=== PATIENT | female | born 1955 | race Caucasian/White ===

== ENCOUNTER → 2018-02-27 13:02 | Outpatient (CLI) | payer OTHER, SELFPAY ==
--- NOTE | 2018-02-27 13:11 | CT_ITS ---
CT lung screening EXAM: CT LUNG LOW DOSE WO CONTRAST COMPARISON: 25 HISTORY: 62 year old female with a smoking history asymptomatic ITS.REASON: FORMER NICOTINE DEPENDENT ORDERING PHYSICIAN: Alvaro Allen MD PATIENT AGE: 62 years TECHNIQUE: The exam was performed on a GE Light Speed [address] scanner using 2.90 mGy CTDI. A low dose helical CT CHEST was performed on a multi-detector scanner. All CT scans at the facility use one or more dose reduction, viz: automated exposure control; ma/kV adjustment per patient size (including targeted exams where dose is matched to indication; i.e. head); or iterative reconstruction technique. The LDCT was performed in a facility that meets the criteria for the screening program. Data regarding this exam was submitted to ACR which is an approved registry. The order for this exam indicates that it came as a result of a lung cancer screening counseling shard decision-making visit that included all the elements required of such a visit including smoking cessation. The radiologist interpreting this exam meets the [facility] criteria for the LDCT lung cancer screening program. The exam is reported using the Lung-RADS classification scale and reported to the ACR registry. NOTE: This study was performed for the specific purposes of lung cancer screening and is not an alternative to diagnostic chest CT. RADIATION DOSE: CTDI vol(CT dose Index-volume) = 2.90mG DLP (Dose Length Product) = 100.70 mGcm FINDINGS: Calcified granuloma right apex Centrilobular images changes with scattered areas of pulmonary fibrosis OTHER FINDINGS: No other pertinent findings evident IMPRESSION: 1. Lung RADS Category: 2, benign 2. Other findings: Centrilobular emphysematous change with pulmonary fibrosis RECOMMENDATIONS: 12 month LDCT screening
== END ==
PROVIDERS: PCP Nurse Practitioner Family; Visit Provider Internal Medicine
DX: Z87.891 Personal history of nicotine dependence (principal); Z12.2 Encounter for screening for malignant neoplasm of respiratory organs

== ENCOUNTER → 2018-03-19 13:46 | Outpatient (POV) | payer OTHER, SELFPAY | PROVIDERS: PCP Nurse Practitioner Family; Visit Provider Internal Medicine | DX: Z00.00 Encounter for general adult medical examination without abnormal findings (principal) ==

== ENCOUNTER 2022-10-12 15:27 | Emergency (ER) | payer MEDICARE, BC, SELFPAY ==
[2022-10-12] VITALS (9 sets, daily range): BP systolic 142–162; BP diastolic 61–78; PULSE 61–66; RESP 20; TEMP 36.8; O2SAT 96–98; BMI 31.8
[2022-10-12 15:50] LABS: Microscopic, Urine URINE MICROSCOPIC (MICROSCOPIC)
[2022-10-12 15:56] LABS: Appearance,Urine SL CLOUDY (Clear); Blood, Urine 2+ (Negative); Color,Urine YELLOW (Yellow); Glucose,Urine (UA) Negative (Negative); Ketones,Urine TRACE (Negative); Leukocyte Esterase,Urine Negative (Negative); Nitrate,Urine Negative (Negative); Protein,Urine 2+ (Negative); Specific Gravity, Urine >= 1.030 (1.005-1.030)
[2022-10-12 16:06] LABS: Bilirubin,Urine Negative (Negative)
[2022-10-12 16:07] LABS: Squamous Epithelial Cell,Urine Occasional #/hpf (0-5)
--- NOTE | 2022-10-12 16:07 | CT_ITS ---
PROCEDURE INFORMATION: Exam: CT Abdomen And Pelvis Without Contrast Exam date and time: 10/12/2022 4:38 PM Age: 67 years old Clinical indication: Abdominal pain; Flank; Left; Additional info: L flank pain TECHNIQUE: Imaging protocol: Computed tomography of the abdomen and pelvis without contrast. Radiation optimization: All CT scans at this facility use at least one of these dose optimization techniques: automated exposure control; mA and/or kV adjustment per patient size (includes targeted exams where dose is matched to clinical indication); or iterative reconstruction. COMPARISON: LUNGSCREEN CT lung screening 02/27/2018 1:26 PM FINDINGS: Liver: Normal. No mass. Gallbladder and bile ducts: Normal. No calcified stones. No ductal dilation. Pancreas: Normal. No ductal dilation. Spleen: Normal. No splenomegaly. Adrenal glands: Normal. No mass. Kidneys and ureters: 3 x 3 mm stone distal left ureter in or immediately above the UVJ with no significant hydronephrosis. Additional nonobstructive renal calcifications bilaterally. Stomach and bowel: Severe sigmoid diverticulosis. Appendix: No evidence of appendicitis. Intraperitoneal space: Unremarkable. No free air. No significant fluid collection. Vasculature: Unremarkable. No abdominal aortic aneurysm. Lymph nodes: Unremarkable. No enlarged lymph nodes. Urinary bladder: Unremarkable as visualized. Reproductive: Unremarkable as visualized. Bones/joints: Unremarkable. No acute fracture. Soft tissues: Unremarkable. Other findings: No other acute disease seen on nonenhanced study. As Above. IMPRESSION: 1. 3 x 3 mm stone distal left ureter in or immediately above the UVJ with no significant hydronephrosis. 2. No other acute disease seen on nonenhanced study. As Above.
[2022-10-12 16:08] LABS: Bacteria,Urine 1+ /lpf; Mucus,Urine 1+ /lpf
--- NOTE | 2022-10-12 16:09 | HMH.EDGENADL ---
Discharge Plan Disposition Patient Disposition: Home, Self-Care Condition: Good Prescriptions Prescriptions: New oxycodone-acetaminophen [Percocet] 5-325 mg tablet 1 tab PO Q6H PRN (Reason: pain) Qty: 10 0RF ondansetron 4 mg tablet,disintegrating 4 mg PO Q8H PRN (Reason: nausea and vomiting) Qty: 10 0RF tamsulosin [Flomax] 0.4 mg capsule 0.4 mg PO HS Qty: 10 0RF Referrals Follow up/Referrals: Petra Oliva [Primary Care Provider] - See instructions Activity Restrictions/Add. Instructions Additional Instructions/Restrictions: Flomax as prescribed. Percocet as needed for pain. Zofran as needed for nausea. Additional instructions for KIDNEY STONE (URETERAL CALCULUS): See your primary care provider as soon as possible for further evaluation. Drink plenty of fluids. Strain your urine and save any stones you catch. Return immediately if you develop a fever or have uncontrollable vomiting or uncontrollable pain. KIDNEY STONE DIET: Most kidney stones contain calcium oxalate. Although one would assume that you should avoid calcium/dairy to prevent kidney stones, what is actually recommended for kidney stone prevention is a diet that contains high intake of calcium, along with drinking plenty of fluids and reducing sodium intake. Recommendations: Drink a lot of water each day: A minimum would be 8-10 glasses (8 oz each) of fluid per day. Sodium: Try not to get more than 1500 mg a day. Calcium: Dietary calcium prevents absorption of oxalate which helps prevent stones. Make sure you get about 1000 to 1200 mg a day. You can get enough calcium from dairy products without taking supplements. Calcium should be ingested with meals, not in between meals. You need to get your calcium at mealtime to decrease the absorption of oxalate from other foods. Eat dairy with each meal (e.g. milk or cheese or yogurt). Oxalate: Although some experts recommend avoiding oxalate in your diet, there have been no studies that prove this works. Eating more calcium will reduce oxalate absorption, and is probably all that is needed to reduce oxalate in your urine. Oxalate containing foods are generally good for you in all other respects - leafy greens, nuts, etc... So avoiding them unnecessarily might not be the best thing for your health. ALSO: If you retrieve your stone by straining your urine, take it to your physician for stone analysis, which can help tailor your dietary recommendations. For further reading, check out the [facility] web page about the kidney stone diet: [email or web address] Additional instructions for CONTROLLED SUBSTANCES: You have been prescribed a medication that is a controlled substance. Controlled substances include pain medications known as opiates and sedative nerve medications known as benzodiazepines. Tramadol, fioricet, and gabapentin are also controlled substances. Some common opiates include: Codeine (such as Tylenol #3) Hydrocodone (Vicodin, Lortab, Lorcet, [place]) Oxycodone (Percocet, Percodan, Oxycodone, Oxy IR) Some common benzodiazepines include: Diazepam (Valium) Lorazepam (Ativan) Alprazolam (Xanax) Clonazepam (Klonopin) Oxazepam (Serax) All of these controlled substances are highly addictive and frequently abused. Misuse can and frequently does lead to addiction as well as overdose and . Medication should be stored in a locked cabinet or other secure storage unit. Do not store the medication in a motor vehicle. Short term supplies, 3 days or less, are prescribed because of the highly addictive nature of the medication. Any of the controlled substance medication NOT taken should be disposed of properly and NOT SAVED. The recommended method of disposing of unused medications is: Place the medicines in a sealable plastic bag. If the medicine is a solid, crush it or add water to dissolve it. Add
--- NOTE | 2022-10-12 16:36 | PC.NURSE ---
pt to ct
[2022-10-12 16:39] LABS: Basophils # 0.3 K/mm3 (0-0.2); Basophils % 1.5 % (0.1-2.0); Eosinophils # 0.3 K/mm3 (0.0-0.4); Eosinophils % 1.5 % (0.1-12.0); Hematocrit 49.5 % (37.0-47.0); Hemoglobin 15.9 g/dL (12.2-16.2); Lymphocytes # 3.5 K/mm3 (0.7-4.5); Lymphocytes % 20.1 % (10-50); Mean Corpuscular HGB Conc 32.1 g/dL (31.8-35.4); Mean Corpuscular Volume 96.6 fl (81-99); Mean Platelet Volume 8.4 fl (7.4-10.4); Monocytes % 5.8 % (1.7-9.3); Neutrophils # 12.3 K/mm3 (1.8-7.8); Neutrophils % 71.1 % (37.0-80.0); Platelet Count 369 K/mm3 (142-424); Red Blood Count 5.13 M/mm3 (4.20-5.40); Red Cell Distribution Width 13.9 % (11.5-17.5); White Blood Count 17.3 K/mm3 (4.8-10.8)
[2022-10-12 16:40] LABS: MANUAL DIFFERENTIAL MANUAL DIFFERENTIAL (MANUAL DIFF)
--- NOTE | 2022-10-12 16:45 | PC.NURSE ---
verbal order for pain medication given by
[2022-10-12 16:47] LABS: Chloride 105 mmol/L (98-107); Sodium 138 mmol/L (136-145)
[2022-10-12 16:50] LABS: Alanine Aminotransferase 24 U/L (12-78); Albumin/Globulin Ratio 1.4 (1.1-1.8); Alkaline Phosphatase 118 U/L (38-126); Aspartate Amino Transferase 34 U/L (14-36); Bilirubin,Total 0.4 mg/dl (0.2-1.3); Blood Urea Nitrogen 21 mg/dl (7-17); Calcium 8.8 mg/dl (8.4-10.2); Carbon Dioxide 22 mmol/L (22.0-30.0); Creatinine Clearance Estimated 68 mL/min (50-200); Estimated Glomerular Filt Rate 62 ml/min (>60); GFR (African American) 75 ML/MIN (>60); Globulin 2.9 g/dL (1.3-3.2); Glucose 163 mg/dl (74-100); Lipase 35 U/L (23-300); Total Protein,Serum 6.9 g/dl (6.3-8.2)
[2022-10-12 17:08] LABS: Lymphocytes % 21 % (10-50); Monocytes % 4 % (2-9); Neutrophils % 75 % (42-76); Total Cells Counted 100
[2022-10-12 17:09] LABS: Platelet Estimate Normal; RBC Morphology Normal
--- NOTE | 2022-10-12 17:46 | PC.NURSE ---
NATIV[facility] MAR at for update on POC
== END 2022-10-12 18:33 | disposition home or self-care (01) ==
PROVIDERS: Emergency Provider Emergency Medicine; PCP Nurse Practitioner Family
DX: M54.50 Low back pain, unspecified (principal); N20.1 Calculus of ureter; R11.2 Nausea with vomiting, unspecified; D72.829 Elevated white blood cell count, unspecified; Z79.51 Long term (current) use of inhaled steroids; Z79.899 Other long term (current) drug therapy; Z88.5 Allergy status to narcotic agent
CPT/HCPCS: 74176; 80053; 81001; 83690; 85007; 85025; 96374; 96375; 96376; 99285; J2405

== ENCOUNTER 2022-10-25 17:14 | Emergency (ER) | payer MEDICARE, BC, SELFPAY ==
--- NOTE | 2022-10-25 18:39 | EXP.UTC ---
Discharge Plan Disposition Patient Disposition: Home, Self-Care Condition: Good Prescriptions Prescriptions: No Action ondansetron 4 mg tablet,disintegrating 4 mg PO Q8H PRN (Reason: nausea and vomiting) Qty: 10 0RF celecoxib 200 mg capsule 200 mg PO DAILY anastrozole 1 mg tablet 1 mg PO DAILY albuterol sulfate 1.25 mg/3 mL solution for nebulization 1.25 mg continuous nebulization Q4HP PRN (Reason: asthma) omeprazole 40 mg capsule,delayed release(DR/EC) 40 mg PO DAILY lisinopril 10 mg tablet 10 mg PO DAILY fluoxetine 20 mg capsule 20 mg PO DAILY Referrals Follow up/Referrals: Petra Oliva [Primary Care Provider] - See instructions Olman Olson MD [Staff Physician] - See instructions Rocael Grimaldo MD [Referring] - See instructions Clinical Impressions Clinical Impression: Abdominal pain, GERD (gastroesophageal reflux disease) [place] [facility] [place] General Chief complaint: Nausea/Vomiting/Diarrhea Stated complaint: vomiting, NA Time Seen by Provider: 10/25/22 18:39 History of Present Illness Provider Complaint: she states that since this morning she has had abdominal pain. She describes the pain as constant and epigastric. She denies that anything has helped the pain. She denies any constipation or diarrhea. Related Data Home Medications Medication Instructions Recorded Confirmed albuterol sulfate 1.25 mg/3 mL 1.25 mg continuous nebulization 10/25/22 10/25/22 solution for nebulization Q4HP PRN asthma anastrozole 1 mg tablet 1 mg PO DAILY breast cancer 10/25/22 10/25/22 celecoxib 200 mg capsule 200 mg PO DAILY Arthritis 10/25/22 10/25/22 fluoxetine 20 mg capsule 20 mg PO DAILY Anxiety 10/25/22 10/25/22 lisinopril 10 mg tablet 10 mg PO DAILY htn 10/25/22 10/25/22 omeprazole 40 mg capsule,delayed 40 mg PO DAILY GERD 10/25/22 10/25/22 release Previous Rx's Medication Instructions Recorded ondansetron 4 mg disintegrating 4 mg PO Q8H PRN nausea and 10/12/22 tablet vomiting #10 tabs Allergies Allergy/AdvReac Type Severity Reaction Status Date / Time codeine Allergy Verified 10/25/22 18:47 PFSH PFSH Disclaimer: The information contained in this section may have been updated after the patient was seen, as this information can be updated by other users. Social History Smoking Status: Never smoker alcohol intake: never current occupational status: retired Travel in the last 8 weeks: None ROS Obtained: Yes All systems reviewed & no additional complaints except as documented Constitutional Constitutional: Reports chills and Reports fever(s) Eyes Eyes: Denies eye discharge ENT Ears, Nose, Mouth, and Throat: Reports as per HPI Cardiovascular Cardiovascular: Denies chest pain Respiratory Respiratory: Denies chest congestion and Reports cough Gastrointestinal Gastrointestingal: Reports nausea; Denies abdominal pain, constipation, cramping, diarrhea or vomiting Musculoskeletal Musculoskeletal: Denies arthralgias Integumentary/Breasts Skin/Breast: Denies rash Neurologic Neurologic: Denies paresthesias Physical Exam General General appearance: alert and in no apparent distress Head Head exam: atraumatic, normocephalic and normal inspection Eye Eye exam: Present normal appearance, PERRL and EOMI ENT ENT exam: Present normal exam, normal oropharynx, mucous membranes moist, TM's normal bilaterally and normal external ear exam Neck Neck exam: Present normal inspection, full ROM and trachea midline; Absent meningismus or lymphadenopathy Chest Chest inspection: Present normal inspection and symmetric chest wall rise; Absent tenderness Respiratory Respiratory exam: Present normal lung sounds bilaterally; Absent respiratory distress Cardiovascular Cardiovascular exam: Present regular rate and normal rhythm; Absent JVD Abdominal Exam Abdominal exam: Presen
[2022-10-25 18:45] VITALS: BP 183/101; PULSE 83; RESP 18; TEMP 36.7; O2SAT 96; BMI 31.8
[2022-10-25 18:49] LABS: UTC Influenza A Antigen Negative (Negative); UTC Influenza B Antigen Negative (Negative)
--- NOTE | 2022-10-25 20:08 | ECG_ITS ---
APPROVED REPORT Exam: Resting ECG HR:81 bpm ECG Measurements Heart Rate 81 AXES NH 143 P 61 QRSd 90 QRS 82 QT 282 T 69 QTc 319 Conclusion SINUS RHYTHM WITH FREQUENT VENTRICULAR PREMATURE COMPLEXES NONSPECIFIC ST & T-WAVE ABNORMALITY ABNORMAL RHYTHM ECG UNCONFIRMED REPORT Electronically signed by : Yohan Jacobs MD 10/26/2022 20:19:25
[2022-10-25 20:15] VITALS: BP 171/94; PULSE 84; RESP 18; TEMP 36.8; O2SAT 98; BMI 31.8
[2022-10-25 20:30] LABS: Basophils # 0.1 K/mm3 (0-0.2); Basophils % 0.5 % (0.1-2.0); Eosinophils # 0.2 K/mm3 (0.0-0.4); Eosinophils % 1.3 % (0.1-12.0); Hematocrit 51.2 % (37.0-47.0); Lymphocytes # 0.7 K/mm3 (0.7-4.5); Lymphocytes % 5.8 % (10-50); Mean Corpuscular HGB Conc 33.2 g/dL (31.8-35.4); Mean Corpuscular Hemoglobin 31.7 pg (27.0-31.2); Mean Corpuscular Volume 95.3 fl (81-99); Mean Platelet Volume 8.5 fl (7.4-10.4); Monocytes # 0.5 K/mm3 (0.1-1.0); Neutrophils # 10.1 K/mm3 (1.8-7.8); Neutrophils % 88.4 % (37.0-80.0); Platelet Count 296 K/mm3 (142-424); Red Blood Count 5.37 M/mm3 (4.20-5.40); Red Cell Distribution Width 14.1 % (11.5-17.5); White Blood Count 11.4 K/mm3 (4.8-10.8)
[2022-10-25 20:36] LABS: Alanine Aminotransferase 22 U/L (12-78); Albumin Level 4.5 g/dl (3.5-5.0); Albumin/Globulin Ratio 1.4 (1.1-1.8); Alkaline Phosphatase 157 U/L (38-126); Amylase 66 U/L (30-110); Anion Gap 14.1 mEq/L (5-15); Aspartate Amino Transferase 33 U/L (14-36); Bilirubin,Total 0.7 mg/dl (0.2-1.3); Blood Urea Nitrogen 21 mg/dl (7-17); Calcium 8.8 mg/dl (8.4-10.2); Carbon Dioxide 23 mmol/L (22.0-30.0); Chloride 106 mmol/L (98-107); Creatinine Clearance Estimated 68 mL/min (50-200); Estimated Glomerular Filt Rate 83 ml/min (>60); GFR (African American) 100 ML/MIN (>60); Globulin 3.3 g/dL (1.3-3.2); Glucose 143 mg/dl (74-100); Lipase 21 U/L (23-300); Potassium 4.1 mmoL/L (3.5-5.1); Sodium 139 mmol/L (136-145); Total Protein,Serum 7.8 g/dl (6.3-8.2)
--- NOTE | 2022-10-25 20:40 | HMH.EDNVD ---
Discharge Plan Disposition Chief Complaint: Nausea/Vomiting/Diarrhea Prescriptions Prescriptions: No Action ondansetron 4 mg tablet,disintegrating 4 mg PO Q8H PRN (Reason: nausea and vomiting) Qty: 10 0RF celecoxib 200 mg capsule 200 mg PO DAILY anastrozole 1 mg tablet 1 mg PO DAILY albuterol sulfate 1.25 mg/3 mL solution for nebulization 1.25 mg continuous nebulization Q4HP PRN (Reason: asthma) omeprazole 40 mg capsule,delayed release(DR/EC) 40 mg PO DAILY lisinopril 10 mg tablet 10 mg PO DAILY fluoxetine 20 mg capsule 20 mg PO DAILY Referrals Follow up/Referrals: Petra Oliva [Primary Care Provider] - See instructions Rocael Grimaldo MD [Referring] - See instructions Olman Olson MD [Staff Physician] - See instructions Clinical Impressions Clinical Impression: Abdominal pain, GERD (gastroesophageal reflux disease) Instructions Patient Instructions: DI for Nausea -- Adult Discharge ED Provider: Leon Acosta Nausea/Vomiting/Diarrhea HPI General Chief complaint: Nausea/Vomiting/Diarrhea Stated complaint: vomiting, NA Time Seen by Provider: 10/25/22 18:39 Mode of Arrival: Ambulatory Source of Information: Patient Limitations: No Limitations Description of Symptoms (Recalled from ER Triage Doc. by RN): Pt presents to ER from [facility]. Pt was recently treated for a kidney stone but states that she passed the kidney stone and has had no symptoms since then (10/12/22). Complains today of vomiting every hour since 0400, heartburn since 1400 and associated shortness of air. States that she has a pressure around her abdomen which feels like a band squeezing. States that only relief she feels is briefly after she vomits. History of Present Illness HPI Narrative: upper abd pain which started after vomiting today since 4 am - went to bed ok -now upper abd pain with gerd sx - hx of recent renal colic complaint: nausea, vomiting and abdominal pain Onset (ago): hour(s) Associated Abdominal Pain: Yes Location of pain: epigastric Severity: moderate Consistency: intermittent Associated symptoms: denies other symptoms Related Data Home Medications Medication Instructions Recorded Confirmed albuterol sulfate 1.25 mg/3 mL 1.25 mg continuous nebulization 10/25/22 10/25/22 solution for nebulization Q4HP PRN asthma anastrozole 1 mg tablet 1 mg PO DAILY breast cancer 10/25/22 10/25/22 celecoxib 200 mg capsule 200 mg PO DAILY Arthritis 10/25/22 10/25/22 fluoxetine 20 mg capsule 20 mg PO DAILY Anxiety 10/25/22 10/25/22 lisinopril 10 mg tablet 10 mg PO DAILY htn 10/25/22 10/25/22 omeprazole 40 mg capsule,delayed 40 mg PO DAILY GERD 10/25/22 10/25/22 release Previous Rx's Medication Instructions Recorded ondansetron 4 mg disintegrating 4 mg PO Q8H PRN nausea and 10/12/22 tablet vomiting #10 tabs Allergies Allergy/AdvReac Type Severity Reaction Status Date / Time codeine Allergy Verified 10/25/22 18:47 [facility] Disclaimer: The information contained in this section may have been updated after the patient was seen, as this information can be updated by other users. Social History Smoking Status: Never smoker alcohol intake: never current occupational status: retired Travel in the last 8 weeks: None ROS Obtained: Yes All systems reviewed & no additional complaints except as documented Physical Exam General General appearance: alert Head Head exam: normocephalic Eye Eye exam: Present PERRL and EOMI; Absent scleral icterus ENT ENT exam: Present mucous membranes moist Neck Neck exam: Present trachea midline Respiratory Respiratory exam: Present normal lung sounds bilaterally; Absent respiratory distress Cardiovascular Cardiovascular exam: Present regular rate, systolic murmur and +S4 Abdominal Exam Abdominal exam: Present soft, guarding, rebound and rigidity; Absent tenderness Extremities Exam Extremities exam: Present full ROM Neurolo
[2022-10-25 20:42] LABS: MANUAL DIFFERENTIAL MANUAL DIFFERENTIAL (MANUAL DIFF)
[2022-10-25 20:51] LABS: Troponin I < 0.01 ng/ml (0.00-0.034)
--- NOTE | 2022-10-25 21:03 | CT_ITS ---
PROCEDURE INFORMATION: Exam: CT Abdomen And Pelvis Without Contrast Exam date and time: 10/25/2022 9:14 PM Age: 67 years old Clinical indication: Vomiting; Abdominal pain; Generalized TECHNIQUE: Imaging protocol: Computed tomography of the abdomen and pelvis without contrast. Radiation optimization: All CT scans at this facility use at least one of these dose optimization techniques: automated exposure control; mA and/or kV adjustment per patient size (includes targeted exams where dose is matched to clinical indication); or iterative reconstruction. COMPARISON: CT ABDOMEN PELVIS WO CON 10/12/2022 4:38 PM FINDINGS: Heart: There is slight prominence of the heart. Diaphragm: Small hiatal hernia. Liver: There is a granuloma of the liver. Gallbladder and bile ducts: Normal. No calcified stones. No ductal dilation. Pancreas: Normal. No ductal dilation. Spleen: There are granulomas of the spleen. Adrenal glands: Normal. No mass. Kidneys and ureters: Right kidney nonobstructing stones measuring up to 2 mm. Subcentimeter cyst of the right kidney. Left kidney nonobstructing lower pole stones measuring to 4 mm. Left kidney 7.5 mm hemorrhagic versus proteinaceous cyst. This is stable. Stomach and bowel: Diverticulosis. Appendix: Normal appendix. Intraperitoneal space: Unremarkable. No free air. No significant fluid collection. Vasculature: Atherosclerosis. Lymph nodes: Unremarkable. No enlarged lymph nodes. Urinary bladder: Unremarkable as visualized. Reproductive: Uterus has been removed. Bones/joints: Degenerative changes. Soft tissues: Unremarkable. IMPRESSION: No acute findings. Bilateral nephrolithiasis. COMMENTS: Consistent with the [employer]'s Incidental Findings Committee white paper (J Am Jarred Radiol 2018): Any incidental renal lesion less than 1 cm or classified as too small to characterize, or any incidental cystic renal lesion characterized as simple-appearing, is likely benign. No follow-up imaging is recommended for these lesions per consensus recommendations based on imaging criteria.
[2022-10-25 21:06] LABS: Microscopic, Urine URINE MICROSCOPIC (MICROSCOPIC)
[2022-10-25 21:17] LABS: Appearance,Urine CLEAR (Clear); Blood, Urine TRACE-I (Negative); Color,Urine YELLOW (Yellow); Glucose,Urine (UA) Negative (Negative); Ketones,Urine 1+ (Negative); Leukocyte Esterase,Urine Negative (Negative); Nitrate,Urine Negative (Negative); Protein,Urine 1+ (Negative); Specific Gravity, Urine >= 1.030 (1.005-1.030)
--- NOTE | 2022-10-25 21:33 | PC.NURSE ---
Pt ambulatory to bathroom with minimal assistance
[2022-10-25 21:36] LABS: Bilirubin,Urine Negative (Negative)
[2022-10-25 21:39] LABS: Lymphocytes % 1 % (10-50); Monocytes % 1 % (2-9); Neutrophils % 98 % (42-76); Platelet Estimate Normal; RBC Morphology Normal; Total Cells Counted 100
[2022-10-25 21:40] LABS: WBC,Urine Occasional #/hpf (0-3)
[2022-10-25 21:41] LABS: Bacteria,Urine 1+ /lpf
[2022-10-25 22:34] LABS: Coronavirus 19, PCR Not Detected (NotDetected); Influenza A, PCR Not Detected (NotDetected); Influenza B, PCR Not Detected (NotDetected)
[2022-10-25 23:09] LABS: Troponin I < 0.01 ng/ml (0.00-0.034)
[2022-10-25 23:18] VITALS: BP 159/61; PULSE 85; RESP 18; TEMP 36.9; O2SAT 96
== END 2022-10-25 23:54 | disposition home or self-care (01) ==
LOC: UTC 17:17 → ER 19:49 → UTC 19:52 → ER 19:52
PROVIDERS: Nurse Practitioner Family; Emergency Provider Emergency Medicine; PCP Nurse Practitioner Family
DX: R10.13 Epigastric pain (principal); R06.02 Shortness of breath; R50.9 Fever, unspecified; R11.2 Nausea with vomiting, unspecified; R19.7 Diarrhea, unspecified; Z20.822 Contact with and (suspected) exposure to COVID-19; R05.9 Cough, unspecified; K21.9 Gastro-esophageal reflux disease without esophagitis; J45.909 Unspecified asthma, uncomplicated; Z79.51 Long term (current) use of inhaled steroids; Z79.899 Other long term (current) drug therapy; Z88.5 Allergy status to narcotic agent
CPT/HCPCS: 74176; 80053; 81001; 82150; 83690; 84484; 85007; 85025; 87804; 93005; 96361; 96374; 96375; 99285; C9803; U0003; U0005

== ENCOUNTER 2024-01-01 09:39 | Outpatient (POV) | payer MEDICARE, BC, SELFPAY | END 2024-01-01 23:59 | disposition home or self-care (01) | LOC: SC 09:40 | PROVIDERS: PCP Nurse Practitioner Family; Visit Provider Dermatology | DX: Z00.00 Encounter for general adult medical examination without abnormal findings (principal) ==

== ENCOUNTER 2024-06-02 13:03 | Emergency (ER) | payer MEDICARE, BC, SELFPAY ==
[2024-06-02] VITALS (8 sets, daily range): BP systolic 133–187; BP diastolic 56–87; PULSE 50–63; RESP 18–19; TEMP 36.8; O2SAT 95–100; BMI 28.3
--- NOTE | 2024-06-02 13:28 | CT_ITS ---
FINAL REPORT TECHNIQUE: Thin section axial images are obtained through the abdomen and pelvis after intravenous contrast. Reconstruction images were obtained from the axial data. Exam was performed using dose reduction techniques. CLINICAL HISTORY: L flank and abd pain, stone vs diverticulitis COMPARISON: 10/25/2022 FINDINGS: LUNG BASES: Lung bases are clear. Heart size is normal. LIVER: Tiny hypodense lesion in the dome of the left lobe of the liver is unchanged and likely a cyst. The remainder of the liver is homogeneous. GALLBLADDER/BILIARY SYSTEM: Gallbladder is present. No gallstones. No biliary dilatation. SPLEEN: Unremarkable. PANCREAS: Unremarkable. ADRENALS: Unremarkable. SYSTEM: Several nonobstructing left renal stones. No hydronephrosis. Tiny bilateral hypodense renal lesions are too small to characterize. Calcification in the dependent portion of the urinary bladder consistent with small stone, may have recently passed. Uterus is absent. GI TRACT: No small bowel obstruction or dilatation. Appendix not seen, no secondary signs of appendicitis. Diverticulosis in the distal colon without diverticulitis. LYMPH NODES/RETROPERITONEUM/MESENTERY: No lymphadenopathy. No abdominal aortic aneurysm. OTHER: No ascites. Remaining soft tissues without acute abnormality. BONES: No acute osseous abnormality. IMPRESSION: Nonobstructing left renal stones. No hydronephrosis. Small stone in the urinary bladder may have recently passed. Diverticulosis without diverticulitis. Reviewed, Interpreted and Dictated by Beatriz Banuelos MD Transcribed by Alison Mott Authenticated and [facility]
--- NOTE | 2024-06-02 13:28 | PC.NURSE ---
DR MCNEILL AT BEDSIDE
[2024-06-02] MEDS: KETOROLAC 30MG/ML VIAL 15 MG IV (13:39)
[2024-06-02] MEDS: ACETAMINOPHEN 1,000MG/100ML VIAL 1000 MG IV (13:40)
[2024-06-02] MEDS: MORPHINE 4MG/ML SYRINGE 4 MG IV (13:40)
[2024-06-02] MEDS: ONDANSETRON 4MG/2ML VIAL 4 MG IV ×2 (13:40→15:48)
--- NOTE | 2024-06-02 13:50 | HMH.EDGENADL ---
Discharge Plan Disposition Patient Disposition: Home, Self-Care Condition: Good Prescriptions Prescriptions: New ketorolac 10 mg tablet 10 mg PO Q8H PRN (Reason: pain) Qty: 10 0RF ondansetron 4 mg tablet,disintegrating 4 mg PO Q8H PRN (Reason: nausea and vomiting) 4 Days Qty: 12 0RF No Action ondansetron 4 mg tablet,disintegrating 4 mg PO Q8H PRN (Reason: nausea and vomiting) Qty: 10 0RF celecoxib 200 mg capsule 200 mg PO DAILY anastrozole 1 mg tablet 1 mg PO DAILY albuterol sulfate 1.25 mg/3 mL solution for nebulization 1.25 mg continuous nebulization Q4HP PRN (Reason: asthma) omeprazole 40 mg capsule,delayed release(DR/EC) 40 mg PO DAILY lisinopril 10 mg tablet 10 mg PO DAILY fluoxetine 20 mg capsule 20 mg PO DAILY Referrals Follow up/Referrals: Petra Oliva [Primary Care Provider] - See instructions Activity Restrictions/Add. Instructions Additional Instructions/Restrictions: You were evaluated in the emergency department today. At this time, we see the kidney stone in your bladder and in the urine specimen that you provided, so we feel you likely have already passed the kidney stone that was causing your pain. You do have small kidney stones remaining in your left kidney, but they should not be causing symptoms since they remain in your left kidney and are not moving down through your ureter. Please follow-up closely with your primary care provider. puppy walker your prescriptions at the pharmacy and take as needed for symptoms. You may also take Tylenol at home as needed for pain. Return to the emergency department for new or worsening symptoms. Clinical Impressions Clinical Impression: Kidney stones, Flank pain, Calculus in bladder Stand Alone Forms Stand Alone Forms: Work/School Release Instructions Patient Instructions: DI for Kidney Stones Print Language Print Language: Com[place]an Discharge ED Provider: Hui Bah General Adult HPI <Johnny Lin MD - Last Filed: 06/02/24 14:59> General Chief complaint: Abdominal Pain Stated complaint: Abd pain/back pain, poss kid stones Time Seen by Provider: 06/02/24 13:08 Mode of Arrival: Wheelchair Source of Information: Patient Limitations: No Limitations Description of Symptoms (Recalled from ER Triage Doc. by RN): pt presents to ED with c/o left sided flank/back pain. pt reports symptoms began approx 20 mins ago. tp reports history of kidney stones on left and right side. History of Present Illness HPI narrative: Please note that above description of symptoms, in this electronic medical record under categorization of recalled from ER triage doctor by RN are reflective of an initial nursing assessment, however, is not reflective of my full history and physical exam that was personally taken and clarified. Consequentially, this preceding description of symptoms, which may include the patient's categorized chief complaint in the EMR, do not reflect my personal clinical impression, and the ultimate description of history of present illness and patient stated complaints should be deferred to this section of the note. Unless stated otherwise or congruent with this section of the note, additional signs, symptoms, or incongruence should be interpreted as inaccurate with my clinical impression. Related Data Home Medications ?Medication ?Instructions ?Recorded ?Confirmed albuterol sulfate 1.25 mg/3 mL 1.25 mg continuous nebulization 10/25/22 09/12/23 solution for nebulization Q4HP PRN asthma anastrozole 1 mg tablet 1 mg PO DAILY breast cancer 10/25/22 09/12/23 celecoxib 200 mg capsule 200 mg PO DAILY Arthritis 10/25/22 09/12/23 fluoxetine 20 mg capsule 20 mg PO DAILY Anxiety 10/25/22 09/12/23 lisinopril 10 mg tablet 10 mg PO DAILY htn 10/25/22 09/12/23 omeprazole 40 mg capsule,delayed 40 mg PO DAILY GERD 10/25/22 09/12/23 release Previous Rx's ?Medication ?Instructions ?Recorded ondansetron 4 mg disintegrating 4 mg PO Q8H PRN nausea and 10/12/22 tablet vomiting #10 tabs ketorolac 10 mg tablet 10 mg PO Q8H PRN pain #10 tabs 06/02/24 ondansetron 4 mg disintegrating 4 mg PO Q8H PRN nausea and 06/02/24 tablet vomiting 4 days #12 tabs Allergies Allergy/AdvReac Type Severity Reaction Status Date / Time codeine Allergy Verified 08/29/23 14:30 PFSH <Johnny Lin MD - Last Filed: 06/02/24 14:59> PFS Disclaimer: The information contained in this section may have been updated after the patient was seen, as this information can be updated by other users. Medical History Epistaxis Pyogenic granuloma of nares Social History Smoking Status: Never smoker alcohol intake: never current occupational status: retired Travel in the last 8 weeks: None <Johnny Lin MD - Last Filed: 06/02/24 14:59> ROS Obtained: Yes All systems reviewed & no additional complaints except as documented Physical Exam <Johnny Lin MD - Last Filed: 06/02/24 14:59> General General appearance: alert and in distress (Secondary to pain) Head Head exam: atraumatic and normocephalic Eye Eye exam: Present normal appearance, PERRL and EOMI Neck Neck exam: Present normal inspection, full ROM and trachea midline Respiratory Respiratory exam: Present normal lung sounds bilaterally; Absent respiratory distress, wheezes, stridor, accessory muscle use or prolonged expiratory phase Cardiovascular Cardiovascular exam: Present regular rate, normal rhythm and other (Pulses equal symmetric in upper and lower extremities) Abdominal Exam Abdominal exam: Present soft; Absent distention, tenderness, guarding, rebound, rigidity or pulsatile mass Extremities Exam Extremities exam: Absent edema Back Exam Back exam: Absent CVA tenderness (R) or CVA tenderness (L) Neurological Exam Neurological exam: Present alert, oriented X3 and CN II-XII intact; Absent motor sensory deficit Skin Skin exam: Present warm and diaphoresis; Absent erythema Medical Decision Making <Johnny Lin MD - Last Filed: 06/02/24 14:59> Medical Records Medical records reviewed: Yes I reviewed the patient's medical records. Deon Inquiry Pt receiving controlled substance: No Deon was queried for this patient: No Vital Signs: 06/02/24 13:05 06/02/24 14:00 06/02/24 14:45 Temperature 98.3 F Temperature Source Oral Pulse Rate 50 L 56 L Pulse Rate [Left Radial] 63 Respiratory Rate 19 Blood Pressure 133/62 133/62 Blood Pressure [Right Arm] 187/87 H Blood Pressure Mean Blood Pressure Mean [Right Arm] 120 02 Sat by Pulse Oximetry 96 97 96 Oxygen Delivery Method Room Air 06/02/24 15:00 06/02/24 15:52 06/02/24 16:00 Temperature Temperature Source Pulse Rate 51 L 53 L 50 L Pulse Rate [Left Radial] Respiratory Rate Blood Pressure 149/76 H 141/56 H 139/69 Blood Pressure [Right Arm] Blood Pressure Mean 104 86 Blood Pressure Mean [Right Arm] 02 Sat by Pulse Oximetry 97 95 98 Oxygen Delivery Method Room Air 06/02/24 16:30 06/02/24 16:47 Temperature 98.3 F Temperature Source Oral Pulse Rate 55 L 60 Pulse Rate [Left Radial] Respiratory Rate 18 Blood Pressure 141/63 H 141/63 H Blood Pressure [Right Arm] Blood Pressure Mean Blood Pressure Mean [Right Arm] 02 Sat by Pulse Oximetry 98 Oxygen Delivery Method Room Air Lab Data Lab Results 06/02/24 13:18: WBC 9.2, RBC 4.93, Hgb 16.0, Hct 48.8 H, MCV 99.1 H, MCH 32.5 H, MCHC 32.8, RDW 13.9, Plt Count 341, MPV 8.2, Neut % (Auto) 62.4, Lymph % (Auto) 29.1, [place] % (Auto) 6.0, Eos % (Auto) 1.3, Baso % (Auto) 1.2, Neut # (Auto) 5.7, Lymph # (Auto) 2.7, [place] # (Auto) 0.6, Eos # (Auto) 0.1, Baso # (Auto) 0.1, Sodium 138, Potassium 4.5, Chloride 108 H, Carbon Dioxide 24, Anion Gap 10.5, BUN 19 H, Creatinine 0.60, Estimated Creat Clear 59, Estimated GFR 99, Est GFR ( Amer) 119, Glucose 111 H, Calcium 8.5, Total Bilirubin 0.6, AST 29, ALT 20, Alkaline Phosphatase 109, Troponin I < 0.01, Total Protein 7.4, Albumin 4.3, Globulin 3.1, Albumin/Globulin Ratio 1.4 06/02/24 14:08: Lactate 1.3 06/02/24 15:31: Urine Color Yellow, Urine Appearance Sl cloudy, Urine pH 7.0, Ur Specific [place] 1.010, Urine Protein Trace, Urine Glucose (UA) Negative, Urine Ketones Negative, Urine Blood 3+, Urine Nitrate Negative, Urine Bilirubin Negative, Urine Urobilinogen 1.0, Ur Leukocyte Esterase Negative, Urine RBC 20-50, Urine WBC None, Ur Squamous Epith Cells 3-5, Urine Bacteria Trace 06/02/24 13:18 06/02/24 13:18 Orders (Tests/Meds): ED MEDICATIONS Discontinued Medications Generic Name Dose Route Start Last Admin Trade Name Katherine PRN Reason Stop Dose Admin Acetaminophen 1,000 mg 06/02/24 13:28 06/02/24 13:40 Acetaminophen 1,000mg/100ml Vial IV 06/02/24 13:29 1,000 mg ONCE ONE Administration Iopamidol 75 ml 06/02/24 14:35 06/02/24 14:36 Iopamidol-370 (76%);100ml Bottle IV 06/02/24 14:36 75 ml ONCE ONE Administration Ketorolac Tromethamine 15 mg 06/02/24 13:28 06/02/24 13:39 Ketorolac 30mg/Ml Vial IV 06/02/24 13:29 15 mg ONCE ONE Administration Morphine Sulfate 4 mg 06/02/24 13:28 06/02/24 13:40 Morphine 4mg/Ml Syringe IV 06/02/24 13:29 4 mg ONCE ONE Administration Ondansetron HCl 4 mg 06/02/24 13:28 06/02/24 13:40 Ondansetron 4mg/2ml Vial IV 06/02/24 13:29 4 mg ONCE ONE Administration Ondansetron HCl 4 mg 06/02/24 15:46 06/02/24 15:48 Ondansetron 4mg/2ml Vial IV 06/02/24 15:47 4 mg ONCE ONE Administration Promethazine HCl 12.5 mg 06/02/24 16:50 06/02/24 16:55 Promethazine Hcl 25mg/Ml 1ml Vial IV 06/02/24 16:51 12.5 mg ONCE ONE Administration Sodium Chloride 10 ml 06/02/24 14:35 06/02/24 14:36 Sodium Chloride 0.9% 10ml Syr (Rad Only) IV 06/02/24 14:36 10 ml ONCE ONE Administration Sodium Chloride 25 ml 06/02/24 16:50 06/02/24 16:55 Sodium Chloride 0.9% 25ml Bag IV 06/02/24 16:51 25 ml ONCE ONE Administration ORDERS Category Date Time Status CT abdomen pelvis w con Stat Cat Scan 06/02/24 13:28 Completed CBC w/Auto Diff [Complete Blood Count Auto Diff] Stat Lab 06/02/24 13:18 Completed CMP [Comprehensive Metabolic Panel] Stat Lab 06/02/24 13:18 Completed Lactic Acid Stat Lab 06/02/24 14:08 Completed Trop I [Troponin I] Stat Lab 06/02/24 13:18 Completed UA [Urinalysis and Microscopic] Stat Lab 06/02/24 15:31 Completed Medical Decision Narrative: 69-year-old female history of nephrolithiasis necessitating lithotripsy presenting with left flank pain. Flank pain started earlier today and is getting worse. Currently 8-10 out of 10, stabbing, does not radiate. Left flank. No fevers or chills, she has been nauseated without vomiting. No bowel symptoms, no recent travel, no recent meds, no other urinary symptoms including blood or burning. Has not noticed anything that makes it better or worse. History was obtained via conversation with patient. On arrival, patient hemodynamically stable, alert, [oriented x4, ][appropriate, ]GCS [15], moving all extremities spontaneously, pupils equal and reactive to light. Full physical exam performed and significant for patient appears to be in acute pain. She is diaphoretic, holding vomitus bag to her face. Sitting over the edge of the bed. No flank pain or tenderness on my evaluation, no abdominal tenderness or pain, no overlying skin changes. Hypertensive, nontachycardic. Differential includes nephrolithiasis, renal abscess, pyelonephritis, sepsis, perforated ulcer, among others. Patient placed on continuous cardiac monitoring and continuous pulse ox with initial blood pressure 133/62, heart rate 56, saturation 96% on room air. Independent hypertension workup with nonactionable CBC. Chemistry with normal kidney function, normal electrolytes. CT scan independently interpreted. No evidence of stone. Final read pending at time of handoff to oncoming physician. Prior to troponin, EKG, and urinalysis, care to Dr. Gan physician. Track Repair Supervisor disclaimer Much of this encounter note is an electronic firefighter type one spoken language to printed text. Electronic firefighter type one of the spoken language may permit errors. Although I have reviewed the note, some errors may still exist. <Hui Bah, DO - Last Filed: 06/02/24 20:01> Vital Signs: 06/02/24 13:05 06/02/24 14:00 06/02/24 14:45 Temperature 98.3 F Temperature Source Oral Pulse Rate 50 L 56 L Pulse Rate [Left Radial] 63 Respiratory Rate 19 Blood Pressure 133/62 133/62 Blood Pressure [Right Arm] 187/87 H Blood Pressure Mean Blood Pressure Mean [Right Arm] 120 02 Sat by Pulse Oximetry 96 97 96 Oxygen Delivery Method Room Air 06/02/24 15:00 06/02/24 15:52 06/02/24 16:00 Temperature Temperature Source Pulse Rate 51 L 53 L 50 L Pulse Rate [Left Radial] Respiratory Rate Blood Pressure 149/76 H 141/56 H 139/69 Blood Pressure [Right Arm] Blood Pressure Mean 104 86 Blood Pressure Mean [Right Arm] 02 Sat by Pulse Oximetry 97 95 98 Oxygen Delivery Method Room Air 06/02/24 16:30 06/02/24 16:47 Temperature 98.3 F Temperature Source Oral Pulse Rate 55 L 60 Pulse Rate [Left Radial] Respiratory Rate 18 Blood Pressure 141/63 H 141/63 H Blood Pressure [Right Arm] Blood Pressure Mean Blood Pressure Mean [Right Arm] 02 Sat by Pulse Oximetry 98 Oxygen Delivery Method Room Air Lab Data Lab Results 06/02/24 13:18: WBC 9.2, RBC 4.93, Hgb 16.0, Hct 48.8 H, MCV 99.1 H, MCH 32.5 H, MCHC 32.8, RDW 13.9, Plt Count 341, MPV 8.2, Neut % (Auto) 62.4, Lymph % (Auto) 29.1, [place] % (Auto) 6.0, Eos % (Auto) 1.3, Baso % (Auto) 1.2, Neut # (Auto) 5.7, Lymph # (Auto) 2.7, [place] # (Auto) 0.6, Eos # (Auto) 0.1, Baso # (Auto) 0.1, Sodium 138, Potassium 4.5, Chloride 108 H, Carbon Dioxide 24, Anion Gap 10.5, BUN 19 H, Creatinine 0.60, Estimated Creat Clear 59, Estimated GFR 99, Est GFR ( Amer) 119, Glucose 111 H, Calcium 8.5, Total Bilirubin 0.6, AST 29, ALT 20, Alkaline Phosphatase 109, Troponin I < 0.01, Total Protein 7.4, Albumin 4.3, Globulin 3.1, Albumin/Globulin Ratio 1.4 06/02/24 14:08: Lactate 1.3 06/02/24 15:31: Urine Color Yellow, Urine Appearance Sl cloudy, Urine pH 7.0, Ur Specific [place] 1.010, Urine Protein Trace, Urine Glucose (UA) Negative, Urine Ketones Negative, Urine Blood 3+, Urine Nitrate Negative, Urine Bilirubin Negative, Urine Urobilinogen 1.0, Ur Leukocyte Esterase Negative, Urine RBC 20-50, Urine WBC None, Ur Squamous Epith Cells 3-5, Urine Bacteria Trace Orders (Tests/Meds): ED MEDICATIONS Discontinued Medications Generic Name Dose Route Start Last Admin Trade Name Katherine PRN Reason Stop Dose Admin Acetaminophen 1,000 mg 06/02/24 13:28 06/02/24 13:40 Acetaminophen 1,000mg/100ml Vial IV 06/02/24 13:29 1,000 mg ONCE ONE Administration Iopamidol 75 ml 06/02/24 14:35 06/02/24 14:36 Iopamidol-370 (76%);100ml Bottle IV 06/02/24 14:36 75 ml ONCE ONE Administration Ketorolac Tromethamine 15 mg 06/02/24 13:28 06/02/24 13:39 Ketorolac 30mg/Ml Vial IV 06/02/24 13:29 15 mg ONCE ONE Administration Morphine Sulfate 4 mg 06/02/24 13:28 06/02/24 13:40 Morphine 4mg/Ml Syringe IV 06/02/24 13:29 4 mg ONCE ONE Administration Ondansetron HCl 4 mg 06/02/24 13:28 06/02/24 13:40 Ondansetron 4mg/2ml Vial IV 06/02/24 13:29 4 mg ONCE ONE Administration Ondansetron HCl 4 mg 06/02/24 15:46 06/02/24 15:48 Ondansetron 4mg/2ml Vial IV 06/02/24 15:47 4 mg ONCE ONE Administration Promethazine HCl 12.5 mg 06/02/24 16:50 06/02/24 16:55 Promethazine Hcl 25mg/Ml 1ml Vial IV 06/02/24 16:51 12.5 mg ONCE ONE Administration Sodium Chloride 10 ml 06/02/24 14:35 06/02/24 14:36 Sodium Chloride 0.9% 10ml Syr (Rad Only) IV 06/02/24 14:36 10 ml ONCE ONE Administration Sodium Chloride 25 ml 06/02/24 16:50 06/02/24 16:55 Sodium Chloride 0.9% 25ml Bag IV 06/02/24 16:51 25 ml ONCE ONE Administration ORDERS Category Date Time Status CT abdomen pelvis w con Stat Cat Scan 06/02/24 13:28 Completed CBC w/Auto Diff [Complete Blood Count Auto Diff] Stat Lab 06/02/24 13:18 Completed CMP [Comprehensive Metabolic Panel] Stat Lab 06/02/24 13:18 Completed Lactic Acid Stat Lab 06/02/24 14:08 Completed Trop I [Troponin I] Stat Lab 06/02/24 13:18 Completed UA [Urinalysis and Microscopic] Stat Lab 06/02/24 15:31 Completed ECG Data Tracing #1: I reviewed this ECG and interpreted as documented below: Sinus bradycardia with a ventricular rate of [address] changes concerning for STEMI. Normal axis and intervals. ECG initial impression date: 06/02/24 ECG initial impression time: 15:03 Medical Decision Narrative: 69-year-old female history of nephrolithiasis necessitating lithotripsy presenting with left flank pain. Flank pain started earlier today and is getting worse. Currently 8-10 out of 10, stabbing, does not radiate. Left flank. No fevers or chills, she has been nauseated without vomiting. No bowel symptoms, no recent travel, no recent meds, no other urinary symptoms including blood or burning. Has not noticed anything that makes it better or worse. History was obtained via conversation with patient. On arrival, patient hemodynamically stable, alert, [oriented x4, ][appropriate, ]GCS [15], moving all extremities spontaneously, pupils equal and reactive to light. Full physical exam performed and significant for patient appears to be in acute pain. She is diaphoretic, holding vomitus bag to her face. Sitting over the edge of the bed. No flank pain or tenderness on my evaluation, no abdominal tenderness or pain, no overlying skin changes. Hypertensive, nontachycardic. Differential includes nephrolithiasis, renal abscess, pyelonephritis, sepsis, perforated ulcer, among others. Patient placed on continuous cardiac monitoring and continuous pulse ox with initial blood pressure 133/62, heart rate 56, saturation 96% on room air. Independent hypertension workup with nonactionable CBC. Chemistry with normal kidney function, normal electrolytes. CT scan independently interpreted. No evidence of stone. Final read pending at time of handoff to bertrand physician. Prior to troponin, EKG, and urinalysis, care to Dr. Gan physician. Track Repair Supervisor disclaimer Much of this encounter note is an electronic firefighter type one spoken language to printed text. Electronic firefighter type one of the spoken language may permit errors. Although I have reviewed the note, some errors may still exist. DO Olvin: I assumed care of the patient at 3 PM. On my assessment, she is resting comfortably and states her symptoms have resolved with the exception of nausea. She was given IV Zofran, which did not help, so then she was given IV Phenergan which significantly proved her symptoms. EKG reassuring, troponin negative. Urine demonstrates blood but no concerns for infection. Patient CT scan demonstrated stone in the bladder, and she did provide a urine specimen after CT which contained the stone. I feel she successfully passed the stone. The fact that her symptoms resolved correlates with this. Ultimately given improvement in symptoms and the patient successfully passed the kidney stone, I feel that she is appropriate for discharge home with prescription for Toradol to treat any residual inflammation and prescription for Zofran to take as needed for nausea and vomiting. She was given instructions for close follow-up with her primary care provider and strict return precautions. She was discharged after all questions were answered. Critical Care <Johnny Lin MD - Last Filed: 06/02/24 14:59> Critical Care Time Critical Care Time: No
[2024-06-02 13:59] LABS: Albumin Level 4.3 g/dl (3.5-5.0); Chloride 108 mmol/L (98-107); Sodium 138 mmol/L (136-145)
[2024-06-02 14:00] LABS: Basophils # 0.1 K/mm3 (0-0.2); Basophils % 1.2 % (0.1-2.0); Eosinophils # 0.1 K/mm3 (0.0-0.4); Eosinophils % 1.3 % (0.1-12.0); Hematocrit 48.8 % (37.0-47.0); Lymphocytes # 2.7 K/mm3 (0.7-4.5); Lymphocytes % 29.1 % (10-50); Mean Corpuscular HGB Conc 32.8 g/dL (31.8-35.4); Mean Corpuscular Hemoglobin 32.5 pg (27.0-31.2); Mean Corpuscular Volume 99.1 fl (81-99); Mean Platelet Volume 8.2 fl (7.4-10.4); Monocytes # 0.6 K/mm3 (0.1-1.0); Neutrophils # 5.7 K/mm3 (1.8-7.8); Neutrophils % 62.4 % (37.0-80.0); Platelet Count 341 K/mm3 (142-424); Potassium 4.5 mmoL/L (3.5-5.1); Red Blood Count 4.93 M/mm3 (4.20-5.40); Red Cell Distribution Width 13.9 % (11.5-17.5); White Blood Count 9.2 K/mm3 (4.8-10.8)
[2024-06-02 14:02] LABS: Alanine Aminotransferase 20 U/L (12-78); Albumin/Globulin Ratio 1.4 (1.1-1.8); Alkaline Phosphatase 109 U/L (38-126); Anion Gap 10.5 mEq/L (5-15); Aspartate Amino Transferase 29 U/L (14-36); Bilirubin,Total 0.6 mg/dl (0.2-1.3); Blood Urea Nitrogen 19 mg/dl (7-17); Carbon Dioxide 24 mmol/L (22.0-30.0); Creatinine Clearance Estimated 59 mL/min (50-200); Estimated Glomerular Filt Rate 99 ml/min (>60); GFR (African American) 119 ML/MIN (>60); Globulin 3.1 g/dL (1.3-3.2); Total Protein,Serum 7.4 g/dl (6.3-8.2)
[2024-06-02 14:03] LABS: Calcium 8.5 mg/dl (8.4-10.2); Glucose 111 mg/dl (74-100)
[2024-06-02 14:30] LABS: Lactic Acid 1.3 mmol/L (0.7-2.1)
[2024-06-02] MEDS: IOPAMIDOL-370 (76%);100ML BOTTLE 75 ML IV (14:36)
[2024-06-02] MEDS: SODIUM CHLORIDE 0.9% 10ML SYR (RAD ONLY) 10 ML IV (14:36)
--- NOTE | 2024-06-02 14:40 | PC.NURSE ---
PT RETURNED FROM CT
--- NOTE | 2024-06-02 15:02 | ECG_ITS ---
APPROVED REPORT Exam: Resting ECG HR:53 bpm ECG Measurements Heart Rate 53 AXES NE 164 P 63 QRSd 86 QRS 73 QT 425 T 64 QTc 408 Conclusion SINUS BRADYCARDIA NONSPECIFIC T-WAVE ABNORMALITY BORDERLINE ECG Electronically signed by : PAT CURIEL, 06/02/2024 21:02:05
[2024-06-02 15:46] LABS: Troponin I < 0.01 ng/ml (0.00-0.034)
[2024-06-02 15:53] LABS: Microscopic, Urine URINE MICROSCOPIC (MICROSCOPIC)
[2024-06-02 16:22] LABS: Appearance,Urine SL CLOUDY (Clear); Bilirubin,Urine Negative (Negative); Blood, Urine 3+ (Negative); Color,Urine YELLOW (Yellow); Glucose,Urine (UA) Negative (Negative); Ketones,Urine Negative (Negative); Leukocyte Esterase,Urine Negative (Negative); Nitrate,Urine Negative (Negative); Protein,Urine TRACE (Negative)
[2024-06-02 16:34] LABS: Bacteria,Urine Trace /lpf; RBC,Urine 20-50 #/hpf (0-3)
[2024-06-02] MEDS: SODIUM CHLORIDE 0.9% 25ML BAG 25 ML IV (16:55)
[2024-06-02] MEDS: PROMETHAZINE HCL 25MG/ML 1ML VIAL 12.5 MG IV (16:55)
--- NOTE | 2024-06-02 16:56 | PC.NURSE ---
PT MEDICATED PER EMAR AND SNACK PROVIDED
--- NOTE | 2024-06-02 17:28 | PC.NURSE ---
PT REPORTS FEELING 100% BETTER. DR. CURIEL NOTIFIED. PT READY FOR DISCHARGE
== END 2024-06-02 17:33 | disposition home or self-care (01) ==
PROVIDERS: Emergency Medicine; Emergency Provider Emergency Medicine; PCP Nurse Practitioner Family
DX: N20.0 Calculus of kidney (principal); N21.0 Calculus in bladder; R10.32 Left lower quadrant pain; M54.59 Other low back pain; R00.1 Bradycardia, unspecified
CPT/HCPCS: 74177; 80053; 81001; 83605; 84484; 85025; 93005; 96374; 96375; 96376; 99285; J0131; J1885; J2270; J2405; J2550; Q9967

== ENCOUNTER 2025-01-09 12:09 | Emergency (ER) | payer MEDICARE, BC, SELFPAY ==
[2025-01-09] VITALS (7 sets, daily range): BP systolic 105–167; BP diastolic 61–94; PULSE 43–99; RESP 18–25; TEMP 36.6–36.7; O2SAT 93–99; BMI 26.5
--- NOTE | 2025-01-09 12:44 | ECG_ITS ---
APPROVED REPORT Exam: Resting ECG HR:101 bpm ECG Measurements Heart Rate 101 AXES [place] 137 P 66 QRSd 86 QRS 78 QT 364 T 64 QTc 422 Conclusion Normal sinus rhythm with frequent PVCs, no ST elevation ST depression or T wave inversion concerning for ischemia Electronically signed by : Alma Joe, 01/09/2025 16:24:42
--- NOTE | 2025-01-09 12:46 | XR_ITS ---
FINAL REPORT CLINICAL HISTORY: cough, shortness of breath, wheezing, hx copd COMPARISON: None FINDINGS: PA and lateral views of the chest were obtained. No acute pulmonary density is evident. There is no evidence of effusion or other pleural disease. The mediastinum has a normal appearance. The cardiac silhouette is unremarkable. IMPRESSION: Unremarkable chest exam. Reviewed, Interpreted and Dictated by Jacqueline Gould MD Transcribed by Alison Mott Authenticated and [facility]
[2025-01-09] MEDS: ONDANSETRON 4MG ODT 4 MG SL (12:50)
[2025-01-09 13:01] LABS: Coronavirus 19, PCR Not Detected (NotDetected); Influenza B, PCR Not Detected (NotDetected)
--- NOTE | 2025-01-09 13:20 | HMH.EDGENADL ---
Discharge Plan Disposition Chief Complaint: Weakness Prescriptions Prescriptions: No Action ketorolac 10 mg tablet 10 mg PO Q8H PRN (Reason: pain) Qty: 10 0RF ondansetron 4 mg tablet,disintegrating 4 mg PO Q8H PRN (Reason: nausea and vomiting) 4 Days Qty: 12 0RF ondansetron 4 mg tablet,disintegrating 4 mg PO Q8H PRN (Reason: nausea and vomiting) Qty: 10 0RF celecoxib 200 mg capsule 200 mg PO DAILY anastrozole 1 mg tablet 1 mg PO DAILY albuterol sulfate 1.25 mg/3 mL solution for nebulization 1.25 mg continuous nebulization Q4HP PRN (Reason: asthma) omeprazole 40 mg capsule,delayed release(DR/EC) 40 mg PO DAILY lisinopril 10 mg tablet 10 mg PO DAILY fluoxetine 20 mg capsule 20 mg PO DAILY Referrals Follow up/Referrals: Petra Oliva [Primary Care Provider] - See instructions Print Language Print Language: Irish Discharge ED Provider: Alma Joe General Adult HPI General Chief complaint: Weakness Stated complaint: weakness, V/D, cough, dizziness Time Seen by Provider: 01/09/25 13:19 Mode of Arrival: Wheelchair Source of Information: Patient, Spouse and Medical Record Description of Symptoms (Recalled from ER Triage Doc. by RN): Pt c/o cough, sore throat, n/v/d, dizziness, and weakness since Sunday (01/05). No medications [employer]. She has a hx of COPD/asthma but has not taken her inhalers. She does feels more wheezing and SOA with exertion. Related Data Home Medications ?Medication ?Instructions ?Recorded ?Confirmed albuterol sulfate 1.25 mg/3 mL 1.25 mg continuous nebulization 10/25/22 09/12/23 solution for nebulization Q4HP PRN asthma anastrozole 1 mg tablet 1 mg PO DAILY breast cancer 10/25/22 09/12/23 celecoxib 200 mg capsule 200 mg PO DAILY Arthritis 10/25/22 09/12/23 fluoxetine 20 mg capsule 20 mg PO DAILY Anxiety 10/25/22 09/12/23 lisinopril 10 mg tablet 10 mg PO DAILY htn 10/25/22 09/12/23 omeprazole 40 mg capsule,delayed 40 mg PO DAILY GERD 10/25/22 09/12/23 release Previous Rx's ?Medication ?Instructions ?Recorded ondansetron 4 mg disintegrating 4 mg PO Q8H PRN nausea and 10/12/22 tablet vomiting #10 tabs ketorolac 10 mg tablet 10 mg PO Q8H PRN pain #10 tabs 06/02/24 ondansetron 4 mg disintegrating 4 mg PO Q8H PRN nausea and 06/02/24 tablet vomiting 4 days #12 tabs Allergies Allergy/AdvReac Type Severity Reaction Status Date / Time codeine Allergy Verified 08/29/23 14:30 [facility] Disclaimer: The information contained in this section may have been updated after the patient was seen, as this information can be updated by other users. Medical History Epistaxis Pyogenic granuloma of nares Social History Smoking Status: Never smoker alcohol intake: never current occupational status: retired Travel in the last 8 weeks: None Have you lived/traveled outside [place] in past 30 days?: No Contact w/someone who lives/traveled outside [place] past 30 days?: No Exposure to someone with infectious disease in past 14 days?: No Do you have a fever (greater than 100.4 F or 38 C)?: No Have you tested positive for COVID-19: No Exposed to someone with COVID-19 in past 14 days?: No Do you have a sore throat?: No Do you have a cough?: Yes Do you have any weakness?: Yes Do you have any diarrhea?: Yes Are you experiencing any unusual bleeding?: No Do you have any muscle aches/pain?: No Do you have any abdominal pain?: No Are you experiencing loss of taste or smell?: No Other Medical History Have you received the Flu Vaccine for this season: No Have you received the Pneumonia Vaccine: No Medical Decision Making Medical Records Screening: Per USPSTF and CDC recommendations, given the prevalence of disease in our region, it is our hospital?s policy to screen for HIV and viral Hepatitis for all patients aged 18 and over and those with ongoing risk factors. Vital Signs: 01/09/25 12:30 Temperature 97.9 F Temperature Source Oral Pulse Rate [Right] 49 L Respiratory Rate 20 Blood Pressure [Right Arm] 167/94 H Blood Pressure Mean [Right Arm] 118 Blood Pressure Source [Right Arm] Automatic Cuff 02 Sat by Pulse Oximetry 96 Oxygen Delivery Method Room Air Orders (Tests/Meds): ED MEDICATIONS Discontinued Medications Generic Name Dose Route Start Last Admin Trade Name Freq PRN Reason Stop Dose Admin Ondansetron HCl 4 mg 01/09/25 12:46 01/09/25 12:50 Ondansetron 4mg Odt SL 01/09/25 12:47 4 mg ONCE ONE Administration ORDERS Category Date Time Status CXR 2 view (NOT portable) [XR chest 2V] Stat Exams 01/09/25 12:46 Taken HIV Combo Stat Lab 01/09/25 12:45 Ordered Hepatitis C Ab Qual. W/ RFX Stat Lab 01/09/25 12:45 Ordered Rapid PCR Covid and Flu A/B Stat Lab 01/09/25 12:46 Received
[2025-01-09 13:35] LABS: Basophils # 0.1 K/mm3 (0-0.2); Basophils % 1.1 % (0.1-2.0); Eosinophils % 0.3 % (0.1-12.0); Hemoglobin 16.7 g/dL (12.2-16.2); Lymphocytes % 31.6 % (10-50); Mean Corpuscular HGB Conc 33.4 g/dL (31.8-35.4); Mean Corpuscular Volume 92.9 fl (81-99); Mean Platelet Volume 10.2 fl (7.4-10.4); Monocytes # 0.8 K/mm3 (0.1-1.0); Monocytes % 11.8 % (1.7-9.3); Neutrophils # 3.5 K/mm3 (1.8-7.8); Neutrophils % 54.4 % (37.0-80.0); Platelet Count 289 K/mm3 (142-424); Red Blood Count 5.38 M/mm3 (4.20-5.40); Red Cell Distribution Width 13.7 % (11.5-17.5); White Blood Count 6.5 K/mm3 (4.8-10.8)
[2025-01-09 13:39] LABS: VBG Base Excess -3.7 mmol/L (-2.4-2.3); VBG HCO3 22.2 mmol/L (23-30); VBG Oxygen Saturation 80.5 % (50-70); VBG PCO2 42.8 mmol/L (35-51); VBG PH 7.33 mmol/L (7.31-7.41); VBG PO2 45.8 mmol/L (28-40); VBG Total CO2 23.5 mmol/L (23-27)
[2025-01-09] MEDS: ONDANSETRON 4MG/2ML VIAL 4 MG IV (13:39)
[2025-01-09] MEDS: IPRATROPIUM/ALBUTEROL 3 ML NEB 6 ML IH (13:39)
[2025-01-09] MEDS: DEXAMETHASONE 4MG/ML 5ML MDV 10 MG IV (13:39)
[2025-01-09] MEDS: MAGNESIUM SULFATE IN WATER 2 GM/50 ML PIGGYBACK IV (13:39)
[2025-01-09 13:41] LABS: Lactate Venous 2.2 mmol/L (0.4-2.0)
[2025-01-09 13:42] LABS: INR 0.93 (0.9-1.1); Prothrombin Time 10.5 seconds (10.1-12.5)
[2025-01-09 13:43] LABS: Alanine Aminotransferase 26 U/L (12-78); Albumin Level 4.2 g/dl (3.5-5.0); Albumin/Globulin Ratio 1.5 (1.1-1.8); Alkaline Phosphatase 89 U/L (38-126); Anion Gap 11.3 mEq/L (5-15); Aspartate Amino Transferase 34 U/L (14-36); Bilirubin,Total 0.5 mg/dl (0.2-1.3); Blood Urea Nitrogen 19 mg/dl (7-17); Calcium 8.9 mg/dl (8.4-10.2); Carbon Dioxide 26 mmol/L (22.0-30.0); Chloride 103 mmol/L (98-107); Creatinine Clearance Estimated 55 mL/min (50-200); Estimated Glomerular Filt Rate 99 ml/min (>60); GFR (African American) 119 ML/MIN (>60); Globulin 2.8 g/dL (1.3-3.2); Glucose 113 mg/dl (74-100); Potassium 4.3 mmoL/L (3.5-5.1); Sodium 136 mmol/L (136-145)
[2025-01-09 13:50] LABS: D-Dimer 0.56 ug/mL (0.0-0.5)
[2025-01-09 13:55] LABS: NT Pro Brain Natriuretic Pep. 307 pg/mL (0-125)
[2025-01-09 13:59] LABS: Procalcitonin 0.075 ng/mL (0.0-2.0)
[2025-01-09 14:00] LABS: Troponin I < 0.01 ng/ml (0.00-0.034)
[2025-01-09 14:09] LABS: Triiodothryronine (T3) Uptake 36 % (23.5-40.5)
[2025-01-09 14:10] LABS: Free Thyroxine Index 5.1 ug/dL (5.93-13.13); T4 (Thyroxine) 14.1 ug/dl (5.53-11.0)
[2025-01-09 14:12] LABS: Influenza A, PCR Detected (NotDetected)
[2025-01-09 14:23] LABS: Thyroid Stimulating Hormone 1.54 uIU/mL (0.465-4.68)
--- NOTE | 2025-01-09 14:24 | CT_ITS ---
FINAL REPORT TECHNIQUE: Thin section axial CT with contrast with multiplanar reconstruction This study was performed with techniques to keep radiation doses as low as reasonably achievable, (ALARA). Individualized dose reduction techniques using automated exposure control or adjustment of mA and/or kV according to the patient''s size were employed. CLINICAL HISTORY: Shortness of breath, arrhythmia COMPARISON: Low-dose CT 02/27/2018 FINDINGS: Pulmonary vessels enhance in normal fashion without evidence of embolism. Thoracic aorta shows no dissection or aneurysm. No pulmonary mass or infiltrate is present. Emphysematous changes are noted. There is no evidence of pneumonia or edema. There is no significant pleural effusion. There is no significant pericardial effusion. No mediastinal or hilar adenopathy is present. Status post right mastectomy. IMPRESSION: No acute findings. Reviewed, Interpreted and Dictated by Jacqueline Gould MD Transcribed by Alison Mott Authenticated and [facility]
[2025-01-09 14:32] LABS: HIV Combo NEGATIVE (Negative)
[2025-01-09] MEDS: 0.9 % SODIUM CHLORIDE 50 ML VIAL IV (14:39)
[2025-01-09] MEDS: SODIUM CHLORIDE 0.9% 10ML SYR (RAD ONLY) 10 ML IV (14:39)
[2025-01-09] MEDS: IOPAMIDOL-370 (76%);100ML BOTTLE 70 ML IV (14:39)
[2025-01-09 14:40] LABS: Hepatitis C Ab Qual. W/ RFX NEGATIVE (Negative)
[2025-01-09] MEDS: PROMETHAZINE HCL 25MG/ML 1ML VIAL 12.5 MG IV (15:45)
[2025-01-09] MEDS: SODIUM CHLORIDE 0.9% 25ML BAG 25 ML IV (15:45)
[2025-01-09 17:42] LABS: Reflex Lactic Add Lactic Reflex
--- NOTE | 2025-01-09 19:25 | [facility].EDGENADL ---
Discharge Plan Disposition Patient Disposition: Home, Self-Care Condition: Good Prescriptions Prescriptions: New oseltamivir [Tamiflu] 75 mg capsule 75 mg PO BID 5 Days Qty: 10 0RF prednisone 50 mg tablet 50 mg PO DAILY 5 Days Qty: 5 0RF No Action ketorolac 10 mg tablet 10 mg PO Q8H PRN (Reason: pain) Qty: 10 0RF ondansetron 4 mg tablet,disintegrating 4 mg PO Q8H PRN (Reason: nausea and vomiting) 4 Days Qty: 12 0RF ondansetron 4 mg tablet,disintegrating 4 mg PO Q8H PRN (Reason: nausea and vomiting) Qty: 10 0RF celecoxib 200 mg capsule 200 mg PO DAILY anastrozole 1 mg tablet 1 mg PO DAILY albuterol sulfate 1.25 mg/3 mL solution for nebulization 1.25 mg continuous nebulization Q4HP PRN (Reason: asthma) omeprazole 40 mg capsule,delayed release(DR/EC) 40 mg PO DAILY lisinopril 10 mg tablet 10 mg PO DAILY fluoxetine 20 mg capsule 20 mg PO DAILY Referrals Follow up/Referrals: Petra Oliva [Primary Care Provider] - See instructions Activity Restrictions/Add. Instructions Additional Instructions/Restrictions: I have prescribed Tamiflu for your influenza and I have prescribed prednisone for your asthma. Please utilize your home nebulizer machine every 4 hours while you have wheezing. If you have any worsening signs or symptoms follow-up with your PCP or return to the ER as needed. Clinical Impressions Clinical Impression: Influenza A Asthma exacerbation Qualifiers: Asthma severity: mild Asthma persistence: intermittent Qualified Code(s): J45.21 - Mild intermittent asthma with (acute) exacerbation Print Language Print Language: Egyptian Discharge ED Provider: Alma Joe General Adult HPI <ALBA Lima - Last Filed: 01/09/25 22:39> General Chief complaint: Weakness Stated complaint: weakness, V/D, cough, dizziness Time Seen by Provider: 01/09/25 13:19 Mode of Arrival: Wheelchair Source of Information: Patient, Spouse and Medical Record Description of Symptoms (Recalled from ER Triage Doc. by RN): Pt c/o cough, sore throat, n/v/d, dizziness, and weakness since Sunday (01/05). No medications [employer]. She has a hx of COPD/asthma but has not taken her inhalers. She does feels more wheezing and SOA with exertion. History of Present Illness HPI narrative: Patient presents for evaluation of cough sore throat nausea vomiting dizziness and weakness since Sunday. Patient has a history of COPD with asthma but is not on home O2. Patient has not been utilizing her home nebulizer. She denies chest pain hemoptysis hematochezia melena. Related Data Home Medications ?Medication ?Instructions ?Recorded ?Confirmed albuterol sulfate 1.25 mg/3 mL 1.25 mg continuous nebulization 10/25/22 09/12/23 solution for nebulization Q4HP PRN asthma anastrozole 1 mg tablet 1 mg PO DAILY breast cancer 10/25/22 09/12/23 celecoxib 200 mg capsule 200 mg PO DAILY Arthritis 10/25/22 09/12/23 fluoxetine 20 mg capsule 20 mg PO DAILY Anxiety 10/25/22 09/12/23 lisinopril 10 mg tablet 10 mg PO DAILY htn 10/25/22 09/12/23 omeprazole 40 mg capsule,delayed 40 mg PO DAILY GERD 10/25/22 09/12/23 release Previous Rx's ?Medication ?Instructions ?Recorded ondansetron 4 mg disintegrating 4 mg PO Q8H PRN nausea and 10/12/22 tablet vomiting #10 tabs ketorolac 10 mg tablet 10 mg PO Q8H PRN pain #10 tabs 06/02/24 ondansetron 4 mg disintegrating 4 mg PO Q8H PRN nausea and 06/02/24 tablet vomiting 4 days #12 tabs oseltamivir 75 mg capsule (Tamiflu) 75 mg PO BID 5 days #10 caps 01/09/25 prednisone 50 mg tablet 50 mg PO DAILY 5 days #5 tabs 01/09/25 Allergies Allergy/AdvReac Type Severity Reaction Status Date / Time codeine Allergy Verified 08/29/23 14:30 [facility] <ALBA Lima - Last Filed: 01/09/25 22:39> [facility] Disclaimer: The information contained in this section may have been updated after the patient was seen, as this information can be updated by other users. Medical History Epistaxis Pyogenic granuloma of nares Social History (Reviewed 09/12/23 @ 12:07 by HEATHER Carson Smoking Status: Never smoker alcohol intake: never current occupational status: retired Travel in the last 8 weeks: None Have you lived/traveled outside [place] in past 30 days?: No Contact w/someone who lives/traveled outside US past 30 days?: No Exposure to someone with infectious disease in past 14 days?: No Do you have a fever (greater than 100.4 F or 38 C)?: No Have you tested positive for COVID-19: No Exposed to someone with COVID-19 in past 14 days?: No Do you have a sore throat?: No Do you have a cough?: Yes Do you have any weakness?: Yes Do you have any diarrhea?: Yes Are you experiencing any unusual bleeding?: No Do you have any muscle aches/pain?: No Do you have any abdominal pain?: No Are you experiencing loss of taste or smell?: No Other Medical History Have you received the Flu Vaccine for this season: No Have you received the Pneumonia Vaccine: No <ALBA Lima - Last Filed: 01/09/25 22:39> ROS Obtained: Yes Systems reviewed as appropriate & no additional complaints except as documented Physical Exam <ALBA Lima - Last Filed: 01/09/25 22:39> General General appearance: alert Respiratory Respiratory exam: Present wheezes; Absent respiratory distress Cardiovascular Cardiovascular exam: Present regular rate Neurological Exam Neurological exam: Present alert and oriented X3 Medical Decision Making <ALBA Lima - Last Filed: 01/09/25 22:39> Medical Records Medical records reviewed: Yes I reviewed the patient's medical records. Screening: Per USPSTF and CDC recommendations, given the prevalence of disease in our region, it is our hospital?s policy to screen for HIV and viral Hepatitis for all patients aged 18 and over and those with ongoing risk factors. Deon Inquiry Pt receiving controlled substance: No Vital Signs: 01/09/25 12:30 01/09/25 13:15 01/09/25 13:32 Temperature 97.9 F Temperature Source Oral Pulse Rate 43 L 50 L Pulse Rate [Right] 49 L Respiratory Rate 20 25 H 22 Blood Pressure 105/76 L 105/76 L Blood Pressure [Right Arm] 167/94 H Blood Pressure Mean 88 Blood Pressure Mean [Right Arm] 118 Blood Pressure Source [Right Arm] Automatic Cuff 02 Sat by Pulse Oximetry 96 97 98 Oxygen Delivery Method Room Air 01/09/25 13:46 01/09/25 14:01 01/09/25 14:16 Temperature Temperature Source Pulse Rate 61 66 99 H Pulse Rate [Right] Respiratory Rate 20 18 20 Blood Pressure 127/90 131/89 110/61 Blood Pressure [Right Arm] Blood Pressure Mean 97 114 78 Blood Pressure Mean [Right Arm] Blood Pressure Source [Right Arm] 02 Sat by Pulse Oximetry 97 93 L 99 Oxygen Delivery Method 01/09/25 15:58 Temperature 98.0 F Temperature Source Oral Pulse Rate 82 Pulse Rate [Right] Respiratory Rate 18 Blood Pressure 115/68 Blood Pressure [Right Arm] Blood Pressure Mean Blood Pressure Mean [Right Arm] Blood Pressure Source [Right Arm] 02 Sat by Pulse Oximetry Oxygen Delivery Method Room Air Lab Data Lab results reviewed: Yes I reviewed the patient's lab results. Lab Results 01/09/25 12:46: SARS-CoV-2 (PCR) Not detected, Influenza A Untype (PCR) Detected A, Influenza Type B (PCR) Not detected 01/09/25 13:16: WBC 6.5, RBC 5.38, Hgb 16.7 H, Hct 50.0 H, MCV 92.9, MCH 31.0, MCHC 33.4, RDW 13.7, Plt Count 289, MPV 10.2, Neut % (Auto) 54.4, Lymph % (Auto) 31.6, Harris % (Auto) 11.8 H, Eos % (Auto) 0.3, Baso % (Auto) 1.1, Neut # (Auto) 3.5, Lymph # (Auto) 2.0, Harris # (Auto) 0.8, Eos # (Auto) 0.0, Baso # (Auto) 0.1, PT 10.5, INR 0.93, D-Dimer 0.56 H, Sodium 136, Potassium 4.3, Chloride 103, Carbon Dioxide 26, Anion Gap 11.3, BUN 19 H, Creatinine 0.60, Estimated Creat Clear 55, Estimated GFR 99, Est GFR ( Amer) 119, Glucose 113 H, Calcium 8.9, Magnesium 2.0, Total Bilirubin 0.5, AST 34, ALT 26, Alkaline Phosphatase 89, Troponin I < 0.01, NT-Pro-B Natriuret Pep 307 H, Total Protein 7.0, Albumin 4.2, Globulin 2.8, Albumin/Globulin Ratio 1.5, Procalcitonin 0.075, TSH 1.54, Free T4 Index 5.1 L, Thyroxine (T4) 14.1 H, T3 Uptake 36, HCV Ab FRANCISCO w/Rflx PCR Qn Negative, HIV Ag/Ab Combo Qual Negative 01/09/25 13:17: VBG pH 7.33, VBG pCO2 42.8, VBG pO2 45.8 H, VBG HCO3 22.2 L, VBG Total CO2 23.5, VBG O2 Saturation 80.5 H, VBG Base Excess -3.7 L, VBG Lactic Acid 2.2 H 01/09/25 13:16 01/09/25 13:16 Orders (Tests/Meds): ED MEDICATIONS Discontinued Medications Generic Name Dose Route Start Last Admin Trade Name Gageq PRN Reason Stop Dose Admin Albuterol/Ipratropium 6 ml 01/09/25 13:27 01/09/25 13:39 Ipratropium/Albuterol 3 Ml Neb IH 01/09/25 13:28 6 ml ONCE ONE Administration Dexamethasone Sodium Phosphate 10 mg 01/09/25 13:27 01/09/25 13:39 Dexamethasone 4mg/Ml 5ml Mdv IV 01/09/25 13:28 10 mg ONCE ONE Administration Magnesium Sulfate 2 gm in 50 mls @ 50 mls/hr 01/09/25 13:27 01/09/25 13:39 Magnesium Sulfate 2gm/50ml Premix IV 01/09/25 14:26 50 mls/hr ONCE ONE Administration Iopamidol 70 ml 01/09/25 14:38 01/09/25 14:39 Iopamidol-370 (76%);100ml Bottle IV 01/09/25 14:39 70 ml ONCE ONE Administration Ondansetron HCl 4 mg 01/09/25 12:46 01/09/25 12:50 Ondansetron 4mg Odt SL 01/09/25 12:47 4 mg ONCE ONE Administration Ondansetron HCl 4 mg 01/09/25 13:27 01/09/25 13:39 Ondansetron 4mg/2ml Vial IV 01/09/25 13:28 4 mg ONCE ONE Administration Promethazine HCl 12.5 mg 01/09/25 15:43 01/09/25 15:45 Promethazine Hcl 25mg/Ml 1ml Vial IV 01/09/25 15:44 12.5 mg ONCE ONE Administration Sodium Chloride 10 ml 01/09/25 14:38 01/09/25 14:39 Sodium Chloride 0.9% 10ml Syr (Rad Only) IV 01/09/25 14:39 10 ml ONCE ONE Administration Sodium Chloride 50 ml 01/09/25 14:38 01/09/25 14:39 0.9 % Sodium Chloride 50 Ml Vial IV 01/09/25 14:39 50 ml ONCE ONE Administration Sodium Chloride 25 ml 01/09/25 15:43 01/09/25 15:45 Sodium Chloride 0.9% 25ml Bag IV 01/09/25 15:44 25 ml ONCE ONE Administration ORDERS Category Date Time Status CT angio chest PE protocol Stat Cat Scan 01/09/25 14:24 Completed CXR 2 view (NOT portable) [XR chest 2V] Stat Exams 01/09/25 12:46 Completed BNP [NT Pro Brain Natriuretic Pep.] Stat Lab 01/09/25 13:16 Completed CBC w/Auto Diff [Complete Blood Count Auto Diff] Stat Lab 01/09/25 13:16 Completed CMP [Comprehensive Metabolic Panel] Stat Lab 01/09/25 13:16 Completed D-Dimer Stat Lab 01/09/25 13:16 Completed HIV Combo Stat Lab 01/09/25 13:16 Completed Hepatitis C Ab Qual. W/ RFX Stat Lab 01/09/25 13:16 Completed INR [Prothrombin Time INR] Stat Lab 01/09/25 13:16 Completed Magnesium Stat Lab 01/09/25 13:16 Completed Procalcitonin Stat Lab 01/09/25 13:16 Completed Rapid PCR Covid and Flu A/B Stat Lab 01/09/25 12:46 Completed Thyroid Panel Stat Lab 01/09/25 13:16 Completed Trop I [Troponin I] Stat Lab 01/09/25 13:16 Completed VBG [Venous Blood Gas] Stat RT 01/09/25 13:17 Completed Medical Decision Narrative: In summary patient is a 69-year-old female who presents to the emergency department for evaluation of cough that is nonproductive dyspnea nausea vomiting diarrhea. Patient is hemodynamically stable with a blood pressure 167/94 heart rate 50 breathing 20 times a minute satting 96% on room air upon arrival, febrile at 97.9. Physical exam is remarkable for end expiratory wheezes in all 4 estes but no increased work of breathing or accessory muscle use. Differential diagnosis includes COPD exacerbation versus upper or lower respiratory tract infection versus pneumonia etc. Initial workup will be conducted with hematologic labs COVID and flu swabs twelve-lead EKG plain film chest x-ray CTA PE protocol.. Initial interventions include Toradol Tylenol DuoNeb Decadron tenuous pulse oximetry and cardiac monitoring IV magnesium. Initial workup reviewed by me shows that her hematologic labs are nonactionable her COVID and flu test are positive for influenza A and my informal interpretation of her plain film and CTA shows no acute processes.. Upon repeat evaluation patient is breathing better her constitutional symptoms better and she is no longer wheezing. Given this patient is appropriate for discharge with a prescription for Bromfed steroid Dosepak and instructions to utilize her nebulizer machine for continuing new or worsening signs or symptoms with follow-up with PCP in 48 hours for recheck or return to the ER as needed. <Alma Joe MD - Last Filed: 01/23/25 07:26> Vital Signs: 01/09/25 12:30 01/09/25 13:15 01/09/25 13:32 Temperature 97.9 F Temperature Source Oral Pulse Rate 43 L 50 L Pulse Rate [Right] 49 L Respiratory Rate 20 25 H 22 Blood Pressure 105/76 L 105/76 L Blood Pressure [Right Arm] 167/94 H Blood Pressure Mean 88 Blood Pressure Mean [Right Arm] 118 Blood Pressure Source [Right Arm] Automatic Cuff 02 Sat by Pulse Oximetry 96 97 98 Oxygen Delivery Method Room Air 01/09/25 13:46 01/09/25 14:01 01/09/25 14:16 Temperature Temperature Source Pulse Rate 61 66 99 H Pulse Rate [Right] Respiratory Rate 20 18 20 Blood Pressure 127/90 131/89 110/61 Blood Pressure [Right Arm] Blood Pressure Mean 97 114 78 Blood Pressure Mean [Right Arm] Blood Pressure Source [Right Arm] 02 Sat by Pulse Oximetry 97 93 L 99 Oxygen Delivery Method 01/09/25 15:58 Temperature 98.0 F Temperature Source Oral Pulse Rate 82 Pulse Rate [Right] Respiratory Rate 18 Blood Pressure 115/68 Blood Pressure [Right Arm] Blood Pressure Mean Blood Pressure Mean [Right Arm] Blood Pressure Source [Right Arm] 02 Sat by Pulse Oximetry Oxygen Delivery Method Room Air Lab Data Lab Results 01/09/25 12:46: SARS-CoV-2 (PCR) Not detected, Influenza A Untype (PCR) Detected A, Influenza Type B (PCR) Not detected 01/09/25 13:16: WBC 6.5, RBC 5.38, Hgb 16.7 H, Hct 50.0 H, MCV 92.9, MCH 31.0, MCHC 33.4, RDW 13.7, Plt Count 289, MPV 10.2, Neut % (Auto) 54.4, Lymph % (Auto) 31.6, Harris % (Auto) 11.8 H, Eos % (Auto) 0.3, Baso % (Auto) 1.1, Neut # (Auto) 3.5, Lymph # (Auto) 2.0, Harris # (Auto) 0.8, Eos # (Auto) 0.0, Baso # (Auto) 0.1, PT 10.5, INR 0.93, D-Dimer 0.56 H, Sodium 136, Potassium 4.3, Chloride 103, Carbon Dioxide 26, Anion Gap 11.3, BUN 19 H, Creatinine 0.60, Estimated Creat Clear 55, Estimated GFR 99, Est GFR ( Amer) 119, Glucose 113 H, Calcium 8.9, Magnesium 2.0, Total Bilirubin 0.5, AST 34, ALT 26, Alkaline Phosphatase 89, Troponin I < 0.01, NT-Pro-B Natriuret Pep 307 H, Total Protein 7.0, Albumin 4.2, Globulin 2.8, Albumin/Globulin Ratio 1.5, Procalcitonin 0.075, TSH 1.54, Free T4 Index 5.1 L, Thyroxine (T4) 14.1 H, T3 Uptake 36, HCV Ab FRANCISCO w/Rflx PCR Qn Negative, HIV Ag/Ab Combo Qual Negative 01/09/25 13:17: VBG pH 7.33, VBG pCO2 42.8, VBG pO2 45.8 H, VBG HCO3 22.2 L, VBG Total CO2 23.5, VBG O2 Saturation 80.5 H, VBG Base Excess -3.7 L, VBG Lactic Acid 2.2 H Orders (Tests/Meds): ED MEDICATIONS Discontinued Medications Generic Name Dose Route Start Last Admin Trade Name Freq PRN Reason Stop Dose Admin Albuterol/Ipratropium 6 ml 01/09/25 13:27 01/09/25 13:39 Ipratropium/Albuterol 3 Ml Neb IH 01/09/25 13:28 6 ml ONCE ONE Administration Dexamethasone Sodium Phosphate 10 mg 01/09/25 13:27 01/09/25 13:39 Dexamethasone 4mg/Ml 5ml Mdv IV 01/09/25 13:28 10 mg ONCE ONE Administration Magnesium Sulfate 2 gm in 50 mls @ 50 mls/hr 01/09/25 13:27 01/09/25 13:39 Magnesium Sulfate 2gm/50ml Premix IV 01/09/25 14:26 50 mls/hr ONCE ONE Administration Iopamidol 70 ml 01/09/25 14:38 01/09/25 14:39 Iopamidol-370 (76%);100ml Bottle IV 01/09/25 14:39 70 ml ONCE ONE Administration Ondansetron HCl 4 mg 01/09/25 12:46 01/09/25 12:50 Ondansetron 4mg Odt SL 01/09/25 12:47 4 mg ONCE ONE Administration Ondansetron HCl 4 mg 01/09/25 13:27 01/09/25 13:39 Ondansetron 4mg/2ml Vial IV 01/09/25 13:28 4 mg ONCE ONE Administration Promethazine HCl 12.5 mg 01/09/25 15:43 01/09/25 15:45 Promethazine Hcl 25mg/Ml 1ml Vial IV 01/09/25 15:44 12.5 mg ONCE ONE Administration Sodium Chloride 10 ml 01/09/25 14:38 01/09/25 14:39 Sodium Chloride 0.9% 10ml Syr (Rad Only) IV 01/09/25 14:39 10 ml ONCE ONE Administration Sodium Chloride 50 ml 01/09/25 14:38 01/09/25 14:39 0.9 % Sodium Chloride 50 Ml Vial IV 01/09/25 14:39 50 ml ONCE ONE Administration Sodium Chloride 25 ml 01/09/25 15:43 01/09/25 15:45 Sodium Chloride 0.9% 25ml Bag IV 01/09/25 15:44 25 ml ONCE ONE Administration ORDERS Category Date Time Status CT angio chest PE protocol Stat Cat Scan 01/09/25 14:24 Completed CXR 2 view (NOT portable) [XR chest 2V] Stat Exams 01/09/25 12:46 Completed BNP [NT Pro Brain Natriuretic Pep.] Stat Lab 01/09/25 13:16 Completed CBC w/Auto Diff [Complete Blood Count Auto Diff] Stat Lab 01/09/25 13:16 Completed CMP [Comprehensive Metabolic Panel] Stat Lab 01/09/25 13:16 Completed D-Dimer Stat Lab 01/09/25 13:16 Completed HIV Combo Stat Lab 01/09/25 13:16 Completed Hepatitis C Ab Qual. W/ RFX Stat Lab 01/09/25 13:16 Completed INR [Prothrombin Time INR] Stat Lab 01/09/25 13:16 Completed Magnesium Stat Lab 01/09/25 13:16 Completed Procalcitonin Stat Lab 01/09/25 13:16 Completed Rapid PCR Covid and Flu A/B Stat Lab 01/09/25 12:46 Completed Thyroid Panel Stat Lab 01/09/25 13:16 Completed Trop I [Troponin I] Stat Lab 01/09/25 13:16 Completed VBG [Venous Blood Gas] Stat RT 01/09/25 13:17 Completed Medical Decision Narrative: In summary patient is a 69-year-old female who presents to the emergency department for evaluation of cough that is nonproductive dyspnea nausea vomiting diarrhea. Patient is hemodynamically stable with a blood pressure 167/94 heart rate 50 breathing 20 times a minute satting 96% on room air upon arrival, febrile at 97.9. Physical exam is remarkable for end expiratory wheezes in all 4 estes but no increased work of breathing or accessory muscle use. Differential diagnosis includes COPD exacerbation versus upper or lower respiratory tract infection versus pneumonia etc. Initial workup will be conducted with hematologic labs COVID and flu swabs twelve-lead EKG plain film chest x-ray CTA PE protocol.. Initial interventions include Toradol Tylenol DuoNeb Decadron tenuous pulse oximetry and cardiac monitoring IV magnesium. Initial workup reviewed by me shows that her hematologic labs are nonactionable her COVID and flu test are positive for influenza A and my informal interpretation of her plain film and CTA shows no acute processes.. Upon repeat evaluation patient is breathing better her constitutional symptoms better and she is no longer wheezing. Given this patient is appropriate for discharge with a prescription for Bromfed steroid Dosepak and instructions to utilize her nebulizer machine for continuing new or worsening signs or symptoms with follow-up with PCP in 48 hours for recheck or return to the ER as needed. I was consulted by the DAVEY, and we discussed the complexity of problems being addressed. I approved the treatment and management plan for this patient's care in the emergency department, thus performing a substantial portion of the medical decision making. Alma Joe MD Critical Care <ALBA Lima - Last Filed: 01/09/25 22:39> Critical Care Time Critical Care Time: Yes Attestation: On 01/09/25, the high probability of a clinically significant, sudden or life threatening deterioration of the following system(s) required my full and direct attention, intervention and personal management. The time I documented below is in addition to time spent performing reported procedures but includes the following listed in this critical care notation. Total Time Total Critical Care Time: 35
== END 2025-01-09 16:00 | disposition home or self-care (01) ==
PROVIDERS: Physician Assistant; Emergency Provider Student in an Organized Health Care Education/Training Program; PCP Nurse Practitioner Family
DX: J09.X2 Influenza due to identified novel influenza A virus with other respiratory manifestations (principal); J45.21 Mild intermittent asthma with (acute) exacerbation
CPT/HCPCS: 71046; 71275; 80053; 82803; 83735; 83880; 84145; 84436; 84443; 84479; 84484; 85025; 85378; 85610; 86803; 87389; 87636; 93005; 94640; 96374; 96375; 99285; J1100; J2405; J2550; J3475; J7620; Q0162; Q9967

== ENCOUNTER 2025-04-05 07:36 | Emergency (ER) | payer MEDICARE, BC, SELFPAY ==
[2025-04-05] VITALS (7 sets, daily range): BP systolic 145–174; BP diastolic 72–96; PULSE 60–120; RESP 20; TEMP 36.6–36.8; O2SAT 97–98; BMI 26.5
--- NOTE | 2025-04-05 07:42 | HMH.EDGENADL ---
Discharge Plan Disposition Patient Disposition: Home, Self-Care Prescriptions Prescriptions: No Action celecoxib 200 mg capsule 200 mg PO DAILY omeprazole 40 mg capsule,delayed release(DR/EC) 40 mg PO DAILY fluoxetine 20 mg capsule 20 mg PO DAILY lisinopril 20 mg tablet 20 mg PO DAILY Referrals Follow up/Referrals: Petra Oliva [Primary Care Provider, Medical] - See instructions Activity Restrictions/Add. Instructions Additional Instructions/Restrictions: Rest your left ankle use compression ice and elevation. Wear Aircast whenever ambulating and follow-up with your primary care provider for repeat evaluation. Also follow-up with your primary care provider about incidental calcification behind your left knee for further monitoring. Clinical Impressions Clinical Impression: Acute ankle pain Print Language Print Language: Moldovan Discharge ED Provider: Alma Joe General Adult HPI General Chief complaint: Extremity Problem,Nontraumatic Stated complaint: numbness in both legs 2-3days swelling Time Seen by Provider: 04/05/25 07:41 History of Present Illness HPI narrative: Patient is a 69-year-old with past medical history significant for breast cancer status post right mastectomy 5 years ago follows with oncology on hormone suppression no history of chemo or radiation, hypertension, osteoarthritis presents to the emergency department with left ankle pain swelling and numbness after going down steps. Patient was walking down steps and felt like her lower calf popped on the left side and since has had swelling. Has been able to ambulate but with pain not relieved with Aleve, ice and elevation. Patient's left foot started to be numb today and she also noticed some numbness on the right side as well triggering her to come to the emergency department. Denies back pain shortness of breath Or history of blood clots. Related Data Home Medications ?Medication ?Instructions ?Recorded ?Confirmed celecoxib 200 mg capsule 200 mg PO DAILY Arthritis 10/25/22 04/05/25 fluoxetine 20 mg capsule 20 mg PO DAILY Anxiety 10/25/22 04/05/25 omeprazole 40 mg capsule,delayed 40 mg PO DAILY GERD 10/25/22 04/05/25 release lisinopril 20 mg tablet 20 mg PO DAILY 04/05/25 04/05/25 Allergies Allergy/AdvReac Type Severity Reaction Status Date / Time codeine Allergy Intermediate Palpitation Verified 04/05/25 08:11 [facility] Disclaimer: The information contained in this section may have been updated after the patient was seen, as this information can be updated by other users. Medical History (Updated 04/05/25 @ 10:03 by Alma Joe MD) History of breast cancer Pyogenic granuloma of nares Epistaxis Surgical History (Updated 04/05/25 @ 08:10 by Marissa Holm RN) Hx of hysterectomy Hx of right mastectomy Social History Smoking Status: Former smoker alcohol intake: never current occupational status: retired Travel in the last 8 weeks?: None Have you lived/traveled outside [place] in past 30 days?: No Contact w/someone who lives/traveled outside [place] past 30 days?: No Exposure to someone with infectious disease in past 14 days?: No Do you have a fever (greater than 100.4 F or 38 C)?: No Have you tested positive for COVID-19?: No Exposed to someone with COVID-19 in past 14 days?: No Do you have a sore throat?: No Do you have a cough?: No Do you have any weakness?: No Do you have any diarrhea?: No Are you experiencing any unusual bleeding?: No Do you have any muscle aches/pain?: No Do you have any abdominal pain?: No Are you experiencing loss of taste or smell?: No Other Medical History Have you received the Flu Vaccine for this season: No Have you received the Pneumonia Vaccine: No ROS Obtained: Yes All systems reviewed & no additional complaints except as documented Physical Exam General General appearance: alert Head Head exam: atraumatic Respiratory Respiratory exam: Absent respiratory distress Cardiovascular Cardiovascular exam: Present regular rate and normal rhythm Abdominal Exam Abdominal exam: Present soft; Absent distention or tenderness Extremities Exam Extremities exam: Present tenderness (left Achilles, medial and lateral malleolus), joint swelling (left ankle) and other (bruising to the left ankle, intact sensation bilateral lower extremities equally, no erythema or leg swelling, intact ROM of the left ankle); Absent edema or calf tenderness Back Exam Back exam: Present normal inspection; Absent tenderness Neurological Exam Neurological exam: Present alert and oriented X3; Absent motor sensory deficit Medical Decision Making Medical Records Screening: Per USPSTF and CDC recommendations, given the prevalence of disease in our region, it is our hospital?s policy to screen for HIV and viral Hepatitis for all patients aged 18 and over and those with ongoing risk factors. Deon Inquiry Pt receiving controlled substance: No Vital Signs: 04/05/25 07:40 04/05/25 07:44 04/05/25 08:00 Temperature 98.0 F 98 F Temperature Source Oral Pulse Rate 120 H 67 Pulse Rate [Right] 82 Respiratory Rate 20 Blood Pressure 147/81 H 174/75 H Blood Pressure [Left Arm] 147/81 H Blood Pressure Mean [Left Arm] 103 Blood Pressure Source [Left Arm] Automatic Cuff 02 Sat by Pulse Oximetry 98 97 98 Oxygen Delivery Method Room Air Room Air Room Air 04/05/25 08:34 04/05/25 09:31 Temperature Temperature Source Pulse Rate 70 62 Pulse Rate [Right] Respiratory Rate Blood Pressure 145/72 H 163/96 H Blood Pressure [Left Arm] Blood Pressure Mean [Left Arm] Blood Pressure Source [Left Arm] 02 Sat by Pulse Oximetry 97 98 Oxygen Delivery Method Room Air Room Air Orders (Tests/Meds): ORDERS Category Date Time Status POCUS Point of Care (ER Only) Stat Exams 04/05/25 08:37 Completed XR ankle LT min 3V Stat Exams 04/05/25 07:56 Completed XR foot LT min 3V Stat Exams 04/05/25 07:56 Completed XR knee LT 3V Stat Exams 04/05/25 07:56 Completed XR tibia fibula LT 2V Stat Exams 04/05/25 07:56 Completed Medical Decision Narrative: In summary, this 69-year-old female presents to the emergency department today with left ankle pain. On initial evaluation patient is hemodynamically stable afebrile in no acute distress. Differential diagnosis includes but is not limited to acute fracture dislocation sprain or strain DVT tendon injury. Based on these concerns, I ordered x-rays of the left lower extremity. Based on clinical exam and history low suspicion of DVT. Normal range of motion Achilles tendon intact. XR personally interpreted demonstrates calcifications in the posterior popliteal fossa, no acute fx LLE On reassessment patient able to ambulate without difficulty provided Aircast for comfort and stability for likely ligament injury based off of clinical exam all tendons intact. Patient agreeable for discharge outpatient follow-up with primary care provider for ankle sprain and incidental calcified nodule in the left popliteal fossa. Procedures Limited Ultrasound Indication:: leg pain Views:: Limited DVT ultrasound Indication: Limited compression ultrasonography of the bilateral lower extremities was performed to evaluate for non-compressibility of the deep veins in the patient. The ultrasound was performed with the following indications, as noted in the H&P: Leg pain bilateral Identified structures: Bilateral common femoral vein, femoral vein, popliteal vein were examined. Findings: Lower Extremity: Right CFV: Good compressibility Right FV: Good compressibility Right Popliteal vein: Good compressibility Left CFV: Good compressibility Left FV good compressibility Left Popliteal vein: Good compressible In left popliteal fossa, superficial hyperechoic structure with posterior shadowing, non compressible branching from a superficial vascular structure Impression: Normal, recommend formal US with PCP of popliteal fossa for further characterization of incidental structure identified on POCUS Images saved to permanent archive The study was technically adequate CPT: 01844-96-FM [id number]-ES 09068-74 (complete bilateral study) This study was performed by me, and I personally interpreted all images/videos. Based on my clinical judgement, these images were [adequate/inadequate] and [did/did not] necessitate further imaging. Critical Care Critical Care Time Critical Care Time: No
--- NOTE | 2025-04-05 07:56 | XR_ITS ---
PROCEDURE INFORMATION: Exam: XR Left Tibia and Fibula Exam date and time: 04/05/2025 8:16 AM Age: 69 years old Clinical indication: Injury or trauma; Fall; Blunt trauma; Lower leg; Left; Additional info: Fall, left ankle pain TECHNIQUE: Imaging protocol: Radiologic exam of the left tibia and fibula. Views: 2 views. COMPARISON: CR XR TIBIA FIBULA LT 2V 04/05/2025 8:16 AM FINDINGS: Bones/joints: Normal anatomic alignment of the left tibia and fibula at the knee and ankle. No acute fracture identified. Soft tissues: No radiopaque foreign body or gas in the soft tissues. Suspected fabella in the left popliteal fossa. IMPRESSION: No acute findings.
--- NOTE | 2025-04-05 07:56 | XR_ITS ---
PROCEDURE INFORMATION: Exam: XR Left Knee Exam date and time: 04/05/2025 8:16 AM Age: 69 years old Clinical indication: Injury or trauma; Fall; Blunt trauma; Knee; Left; Additional info: Fall, left ankle pain TECHNIQUE: Imaging protocol: Radiologic exam of the left knee. Views: 3 views. COMPARISON: CR XR KNEE LT 3V 04/05/2025 8:16 AM FINDINGS: Bones/joints: There is normal anatomic alignment of the left knee. No evidence of a fracture or destructive bone lesion. No visible left knee effusion. Soft tissues: There is a benign-appearing calcification in the lateral aspect of the left popliteal fossa which could represent a fabella versus a phlebolith. IMPRESSION: No acute left knee abnormality identified.
--- NOTE | 2025-04-05 07:56 | XR_ITS ---
PROCEDURE INFORMATION: Exam: XR Left Foot Exam date and time: 04/05/2025 8:16 AM Age: 69 years old Clinical indication: Injury or trauma; Fall; Blunt trauma; Foot; Left; Additional info: Fall, left ankle pain TECHNIQUE: Imaging protocol: Radiologic exam of the left foot. Views: 3 or more views. COMPARISON: CR XR ANKLE LT MIN 3V 04/05/2025 8:16 AM FINDINGS/IMPRESSION: Bones/joints: Diffuse osteopenia. There is normal anatomic alignment of the bones of the left foot. No acute osseous lesions identified. There is a prominent bone spur at the plantar surface of the calcaneus. Soft tissues: Normal.
--- NOTE | 2025-04-05 07:56 | XR_ITS ---
PROCEDURE INFORMATION: Exam: XR Left Ankle Exam date and time: 04/05/2025 8:16 AM Age: 69 years old Clinical indication: Pain and injury or trauma; Fall; Swelling, leg or foot and other: Bruised; Blunt trauma; Ankle; Left; Additional info: Fall, left ankle pain TECHNIQUE: Imaging protocol: Radiologic exam of the left ankle. Views: 3 or more views. COMPARISON: CR XR ANKLE LT MIN 3V 04/05/2025 8:16 AM FINDINGS: Bones/joints: There is normal anatomic alignment of the left ankle. No acute fracture identified. The tibiotalar joint space is normal. The talus and calcaneus appear intact. There is a prominent bone spur at the plantar surface of the calcaneus. Soft tissues: Left ankle soft tissue swelling. No radiopaque foreign body or gas in the soft tissues. IMPRESSION: Left ankle soft tissue swelling without fracture.
--- NOTE | 2025-04-05 08:26 | PC.NURSE ---
pt back from Xrays at this time
== END 2025-04-05 10:12 | disposition home or self-care (01) ==
PROVIDERS: Emergency Provider Student in an Organized Health Care Education/Training Program; PCP Nurse Practitioner Family
DX: M25.572 Pain in left ankle and joints of left foot (principal); R20.0 Anesthesia of skin
CPT/HCPCS: 73562; 73590; 73610; 73630; 99284

== ENCOUNTER 2025-09-12 10:05 | Emergency (ER) | payer MEDICARE, BC, SELFPAY ==
--- OUTSIDE RECORDS SUMMARY | 2025-09-11 08:20 | XMS_ITS | Encounter Summary ---
Author Organization [facility] Address [address] [place] [address] Care Team Providers Care Core Mounter Name Role Phone Nuria Malone MD Unavailable [phone] Janna Arthur APRN Primary Care Provider [phone] Reason for Visit * Reason Comments Medicare Annual Wellness Visit Initial Encounter Details Date Type Department Care Team (Late st Contact Info) Description 09/11/2025 8:20 AM EST Office Visit [facility] [address] [place] [address] Janna Arthur, LAKESHA [address] [place] [address] Routine general medical examination at [...] any time in the past 12 m [facility], were you homeless or living in a senior living (including now)? No 09/11/2025 [facility] Utilities Answer Date Recorded In the past 12 months has th [employer] electric, gas, oil, or water company threatened [...] EST Shanel Jimenez Feeling tired or having zoila le energy Not at all 09/11/2025 8:38 AM EST Shanel Jimenez Poor appetite [...] Health Questionnaire-9 Score 0 05/2025 8:38 AM Shanel Eastman * Calculated C-SSRS Risk Score (Lifetime/Recent) Answer Date of Assessment Author No Risk Indicated 09/11/2025 8:38 AM Shanel Eastman * How difficult have these problems made it for you to do your work, take care of things at home, or get along with other people? Answer Date of Assessment Author Not difficult at all 09/11/2025 8:38 AM Shanel Ivy * Question Answer Date of Assessment Author 1. Wish to be (Past 1 Month) No 025 8:38 AM Shanel Eastman 2. Non-Specific Active Suici carlitos Thoughts (Past 1 Month) No 09/11/2025 8:38 AM Shanel Eastman 6. Suicidal Behavior (Lifetime) No 8:38 AM EST Shanel Jimenez documented as of this encounter Miscellaneous Notes [...] Never done UKY-Influenza Vaccine (1) Never done [id number] Vaccine (3 - season) 2025 UKY-Medicare Annual [...] Breast Cancer Lung Cancer Osteoporosis Cervical Cancer [facility] Preventative Services Quick Reference Medicare Risks and [...] Never done UKY-Influenza Vaccine (1) Never done [id number]-78 Vaccine (3 - season) 2025 UKY-Medicare Annual [...] 5 years. Social History: Hobbies: Visiting with [employer] Diet: Rich in fruits, vegetables, and protein [...] this visit: Routine general medical examination at [facility] facility Assessment & Plan 1. Medicare wellness [...] Care Team (Late st Contact Info) Description 09/22/2025 2:00 PM EST Appointment [facility] [address] [address] 09/22/2025 3:00 PM EST Office Visit [facility] [address] [facility]nd [place] [address] Lynda Espino PA [address] [facility] [address] [place] [address] documented as of this encounter Visit Diagnoses [...] documented as of this encounter Care Teams Core Mounter Relationship Specialty Start Date End Date Janna Arthur APRN [address] [place] [address] PCP - General Family Medicine 08/10/23 Nuria Malone MD 800 [facility] [address] [place] [address] Consulting Physician Hematology and Oncology 08/23/21 documented as of this encounter
[2025-09-12] VITALS (7 sets, daily range): BP systolic 125–150; BP diastolic 55–78; PULSE 59–82; RESP 14–16; TEMP 36.6; O2SAT 96–99; BMI 28.5
--- OUTSIDE RECORDS SUMMARY | 2025-09-12 10:12 | XMS_ITS | Encounter Summary ---
Author Organization [facility] Address [address] [place] [address] Care Team Providers Care Farmer And Grazier Name Role Phone Nuria Malone MD Unavailable [phone] Janna Arthur APRN Primary Care Provider [phone] Reason for Visit * Reason Comments Med Refill Encounter Details Date Type Department Care Team (Late st Contact Info) Description 09/03/2025 Refill [facility] [address] [place] [address] Janna Arthur APRN [address] [place] [address] Gastroesophageal reflux disease without esophagitis; Essential (primary) hypertension; Anxiety and depression Social History Tobacco Use Types Packs/Day Years Used Date Smoking Tobacco: Former Cigarettes 8 2007 Smokeless Tobacco: Never Alcohol Use Standard Drinks/Week Comments No 0 (1 standard drink = 0.6 oz pure alcohol) Alcoholic Drinks/day: No history of alcohol use Humiliation, Afraid, Rape, and Kick questionnair e Answer Date Recorded Within the last year, have y ou been afraid of your partner or ex-partner? No 08/04/2024 Within the last year, have y ou been humiliated or emotionally abused in other ways by your partner or ex-partner? No Within the last year, have y ou been kicked, hit, slapped, or otherwise physically hurt by your partner or ex-partner? No 08/04/2024 Within the last year, have y ou been raped or forced to have any kind of sexual activity by your partner or ex-partner? No 08/04/2024 AUDIT-C Answer Date Recorded Q1: How often do you have a drink containing alcohol? Never 08/04/2024 Q2: How many drinks containi ng alcohol do you have on a typical day when you are drinking? Patient does not drink Q3: How often do you have si x or more drinks on one occasion? Never 08/04/2024 PHQ-2 Answer Date Recorded Patient Health Questionnaire-2 Score 0 08/08/2024 Exercise Vital Sign Answer Date Recorde d On average, how many days pe r week do you engage in moderate to strenuous exercise (like a brisk walk)? 0 days 08/04/2024 On average, how many minutes do you engage in exercise at this level? 0 min 08/04/2024 Hunger Vital Sign Answer Date Recorded Within the past 12 months, y ou worried that your food would run out before you got the money to buy more. Never true 08/04/20 24 Within the past 12 months, t he food you bought just didn't last and you didn't have money to get more. Never true 08/04/2024 PRAPARE - Transportation Answer Date Re corded In the past 12 months, has l ack of transportation kept you from medical appointments or from getting medications? No 07/08 In the past 12 months, has l ack of transportation kept you from meetings, work, or from getting things needed for daily living? No 08/04/2024 Housing Stability Vital Sign Answer Waqas e Recorded In the last 12 months, was t here a time when you were not able to pay the mortgage or rent on time? No 08/04/2024 In the last 12 months, how many places have you lived? 1 08/04/2024 In the last 12 months, was t here a time when you did not have a steady place to sleep or slept in a usp (including now)? No 08/04/2024 Utilities Answer Date Recorded In the past 12 months has th e electric, gas, oil, or water company threatened to shut off services in your home? No 08/04/2024 PHQ-2A Answer Date Recorded Depression Risk 0 02/27/2024 Comments No Sex and Gender Information Value Date Recorded Sex Assigned at Not on file Legal Sex Female 5:59 PM EDT Gender Identity Not on file Sexual Orientation Not on file documented as of this encounter Miscellaneous Notes * Progress Notes - Farheen Martinez, PharmD - 09/07/2025 12:21 PM EST 3 medication(s) has been approved per protocol. Appt requested to be scheduled by [facility]. Patient must schedule an appointment and be seen in clinic for additional refills. documented in this encounter Plan of Treatment Upcoming Encounters Date Type Department Care Team (Late st Contact Info) Description 09/22/2025 2:00 PM EST Appointment [facility] [address] [place] [address] 09/22/2025 3:00 PM EST Office Visit [facility] [address] [facility], [address]nd [place] [address] Lynda Espino, ALBA [address] [address] documented as of this encounter Visit Diagnoses Diagnosis Gastroesophageal reflux disease without esophagitis Esophageal reflux Essential (primary) hypertension Unspecified essential hypertension Anxiety and depression documented in this encounter Additional Health Concerns Assessment Noted Time PHQ-9 Depression Total Score: 0 02/22/20 22 1:00 PM EDT A fall risk assessment has been complete d for the patient 04/14/2025 3:12 PM EDT A Body Mass Index follow-up plan has been documented for the patient 08/08/2024 8:41 AM EDT documented as of this encounter Care Teams Farmer And Grazier Relationship Specialty Start Date End Date Janna Arthur APRN [address] [place] [phone] PCP - General Family Medicine 08/10/23 Nuria Malone MD 800 [facility] Nella Gipsonrickson [address] [phone] Consulting Physician Hematology and Oncology 08/23/21 documented as of this encounter
--- OUTSIDE RECORDS SUMMARY | 2025-09-12 10:12 | XMS_ITS | Encounter Summary ---
Author Organization [facility] Address [address] [place] [address] Care Team Providers Care Customer Service Manager Name Role Phone Nuria Malone MD Unavailable [phone] Janna Arthur APRN Primary Care Provider [phone] Reason for Visit * Reason Comments Med Refill Encounter Details Date Type Department Care Team (Late st Contact Info) Description 09/03/2025 [facility] [address] [facility]nd [place] [address] Nuria Malone MD 800 [facility] [address] [place] [address] Malignant neoplasm of right breast in female, estrogen receptor positive, unspecified site of breast Social History Tobacco Use Types Packs/Day Years Used Date Smoking Tobacco: Former Cigarettes 988 - 2007 Smokeless Tobacco: Never Alcohol Use Standard [...] place to sleep or slept in a snf (including now)? No 08/04/2024 Utilities Answer Date [...] on file documented as of this encounter Plan of Treatment Upcoming Encounters Date Type Department Care Team (Late st Contact Info) Description 09/22/2025 2:00 PM EST Appointment [facility] [address] [place] [address] 09/22/2025 3:00 PM EST Office Visit [facility] [address] [facility]nd [place] [address] Lynda Espino PA [address] [facility] [address] [place] [address] documented as of this encounter Visit Diagnoses Diagnosis Malignant neoplasm of right breast in female, estrogen receptor positive, unspecified site of breast documented in this encounter Additional Health Concerns Assessment Noted Time PHQ-9 Depression Total Score: 0 02/22/20 22 1:00 PM EDT A fall risk assessment has been complete d for the patient 04/14/2025 3:12 PM EDT A Body Mass Index follow-up plan has been documented for the patient 08/08/2024 8:41 AM EDT documented as of this encounter Care Teams Customer Service Manager Relationship Specialty Start Date End Date Janna Arthur APRN [address] [place] [address] PCP - General Family Medicine 08/10/23 Nuria Malone MD [address] [facility] [address] [place] [address] Consulting Physician Hematology and Oncology 08/23/21 documented as of this encounter
--- OUTSIDE RECORDS SUMMARY | 2025-09-12 10:12 | XMS_ITS | Encounter Summary ---
Author Organization [facility] Address [address] [place] [address] Care Team Providers Care Housekeeping Cleaner Name Role Phone Nuria Malone MD Unavailable [phone] Janna Arthur APRN Primary Care Provider [phone] Encounter Details Date Type Department Care Team (Late st Contact Info) Description 09/07/2025 [facility] [address] [place] [address] Janna Arthur APRN [address] [place] [address] Anxiety and depression; Essential (primary) hypertension; Gastroesophageal reflux disease without esophagitis Social History [...] place to sleep or slept in a longterm (including now)? No 08/04/2024 Utilities Answer Date [...] Notes - Farheen Martinez, PharmD - 09/07/2025 12:26 PM EST Resent prescription(s) to requested pharmacy due to: Prescription(s) not received by pharmacy. All went to print documented in this encounter Plan of Treatment Upcoming Encounters Date Type Department Care Team (Late st Contact Info) Description 09/22/2025 2:00 PM EST Appointment [facility] [place] [address] [address] [facility] [address] [place] [address] 09/22/2025 3:00 PM EST Office Visit [facility] [place] [address] [facility], 2nd [place] [address] Lynda Espino PA [address] [facility] [address] [place] [address] documented as of this encounter Visit Diagnoses Diagnosis Anxiety and depression Essential (primary) hypertension Unspecified essential hypertension Gastroesophageal reflux disease without esophagitis Esophageal reflux [...] documented as of this encounter Care Teams Housekeeping Cleaner Relationship Specialty Start Date End Date Janna Arthur APRN [address] [place] [address] PCP - General Family Medicine 08/10/23 Nuria Malone MD 800 [facility] [address] [address] Consulting Physician Hematology and Oncology 08/23/21 documented as of this encounter
--- OUTSIDE RECORDS SUMMARY | 2025-09-12 10:12 | XMS_ITS | Clinical Summary ---
Author Organization [facility] Address [address] [place] [address] Care Team Providers Care Medical Photographer Name Role Phone Petra Oliva APRN Primary Care Provider Allergies Active Allergy Reactions Criticality Noted Date Comments Codeine Shortness Of Breath High 08/10/2020 Medications anastrozole (ARIMIDEX) 1 MG tablet Take 1 tablet by mouth Daily. 2 Active Cranberry (AZO Cranberry Gummies) 250 MG chewable tablet 2 tab(s) orally once a day Active lisinopril (PRINIVIL,ZESTR IL) 10 MG tablet Take 1 tablet by mouth Daily. 1 Active FLUoxetine (PROzac) 20 MG capsule Take 1 capsule by mouth Daily. Active celecoxib (CeleBREX) 200 MG capsule Take 1 capsule by mouth Daily. Active omeprazole (priLOSEC) 40 MG capsule Take 1 capsule by mouth Daily. Active albuterol (PROVENTIL) (5 MG/ML) 0.5% nebulizer solution Take 2.5 mg by nebulization Every 6 (Six) Hours As Needed for Wheezing. Active ALBUTEROL IN Inhale 1 puff Daily. Active HYDROcodone-di taminophen (NORCO) 7.5-325 MG per tabletIndicatio ns:Kidney stone Take 1 tablet by mouth Every 6 (Six) Hours As Needed for Moderate Pain. 30 tablet 02/23/2023 11:20 AM EDT 3 Active Active Problems No known active problems Social History Tobacco Use Types Packs/Day Years Used Date Smoking Tobacco: Never Smokeless Tobacco: Never Tobacco Cessation:Counseling Given: Not Answered Alcohol Use Standard Drinks/Week Comments Never 0 (1 standard drink = 0.6 oz pur e alcohol) Abuse Screen Answer Date Recorded Unsafe at Home or Work/School Not on file Feels Threatened by Someone? Not on file Does Anyone Keep You from Co ntacting Others or Doint Things Outside the Home? Not on file 02/28/2024 Physical Sign of Abuse Present Not on file 0 02/28/2024 Housing Stability Answer Date Recorded Current Living Arrangements Not on file 02/04 Potentially Unsafe Housing Conditions Not on radha e 02/28/2024 Family and Community Support Answer Waqas e Recorded Help with Day-to-Day Activities Not on file 08/14/2023 Lonely or Isolated Not on file 08/14/2023 Employment Answer Date Recorded Do you want help finding or keeping work or a sal b? Not on file 08/14/2023 Disabilities Answer Date Recorded Concentrating, Remembering, or Making Decisions Difficulty Not on file 02/28/2024 Doing Errands Independently Difficulty Not on fi le 02/28/2024 Education Answer Date Recorded Help with school or training? Not on file Preferred Language Not on file 08/14/2023 Comments No Sex and Gender Information Value Date Recorded Sex Assigned at Not on file Legal Sex Female 1:49 PM EDT Gender Identity Not on file Sexual Orientation Not on file Last Filed Vital Signs Vital Sign Reading Time Taken Comments Blood Pressure 165/80 02/23/2023 11:30 AM EDT Pulse 65 02/23/2023 11:30 AM EDT Temperature 36.4 C (97.5 F) 02/23/2023 11:30 AM EDT Respiratory Rate 12 02/23/2023 11:30 AM EDT Oxygen Saturation 95% 02/23/2023 11:30 AM EDT Inhaled Oxygen Concentration - - Weight 81.6 kg (180 lb) 02/23/2023 6:57 AM EDT Height 160 cm (5' 3 ) 02/23/2023 6:57 AM EDT Body Mass Index 31.89 02/23/2023 6:57 AM EDT Plan of Treatment Health Maintenance Due Date Last Done Comments ANNUAL PHYSICAL 1955 DXA SCAN 1955 HEPATITIS C SCREENING 1955 Pneumococcal Vaccine 50+ (1 of 2 - PCV) 1972 COLOGUARD 1998 COLON CANCER SCREENING 5 YEA R SIGMOIDOSCOPY 1998 COLONOSCOPY 1998 [address]AL CANCER SCREENING 1998 CT COLONOGRAPHY 1998 FECAL OCCULT BLOOD TEST 1998 FIT Testing (1 year) 1998 ZOSTER VACCINE (1 of 2) 2003 TDAP/TD VACCINES (2 - Tdap) 01/06/2007 01/06/1997 INFLUENZA VACCINE 06/05/2025 COVID-19 Vaccine (3 - 2024-2 6 season) 2025 10/03/2021, 01/12/2021 MAMMOGRAM 09/01/2026 09/01/2024, 08/06, 08/28/2022, Additional history exists Insurance MEDICARE A & B Member Subscriber Plan / Payer (Ef fective 2018-Present) Name:Josey Morales Member ID:[id number] Relation to Subscriber:Self Name:Josey Morales Subscriber ID:[id number] Payer ID:[id number] Group ID:Not on file Type:Not on file Address: [facility] [id number] [address] Care Teams Medical Photographer Relationship Specialty Start Date End Date Petra Oliva APRN [address] [place], [place] [id number] PCP - General Family Medicine 11/14/21
--- OUTSIDE RECORDS SUMMARY | 2025-09-12 10:12 | XMS_ITS | Encounter Summary ---
Author Organization [facility] Address [address] [place] [place] [address] Care Team Providers Care Basic Acoustic Analyst Name Role Phone Nuria Malone MD Unavailable [phone] Janna Arthur APRN Primary Care Provider [phone] Encounter Details Date Type Department Care Team (Latest Contact Info) Description 09/11/2025 Travel Social History Tobacco Use Types Packs/Day Years Used Date Smoking Tobacco: Former Cigarettes [id number] Passive Smoke Exposure: Past Smokeless Tobacco: Never Alcohol Use Standard Drinks/Week [...] any time in the past 12 m [facility], were you homeless or living in a mcc (including now)? No 09/11/2025 [facility] Utilities Answer Date Recorded In the past [...] on file documented as of this encounter Functional Status * Over the past 2 weeks, how often have you been bothered by any of the following problems? Question Answer Date of Assessment Author Little interest or pleasure in doing things Not at all 09/11/2025 8:38 AM Shanel Eastman Feeling down, depressed, or hopeless Not at all 05/2025 8:38 AM Shanel Eastman Patient Health Questionnaire-2 Score 0 05/2025 8:38 AM Shanel Eastman * Question Answer Date of Assessment Author Trouble falling or staying a sleep, or sleeping too much Not at all 09/11/2025 8:38 AM Shanel Eastman Feeling tired or having zoila le energy Not at all 09/11/2025 8:38 AM Shanel Eastman Poor appetite or overeating Not at all 09/11/2025 8: 38 AM Shanel Eastman Feeling bad about yourself - or that you are a failure or have let yourself or your family down Not at all 09/11/2025 8:38 AM Shanel Eastman Trouble concentrating on thi ngs, such as reading the newspaper or watching television Not at all 09/11/2025 8:38 AM Shanel Eastman Moving or speaking so slowly that other [...] No Risk Indicated 09/11/2025 8:38 AM EST Shanel Jimenez * How difficult have these problems made [...] Shanel Jimenez documented as of this encounter Plan of Treatment Upcoming Encounters Date Type Department Care Team ([facility] st Contact Info) Description 09/22/2025 2:00 PM EST Appointment [facility] [place] [address] [address] [facility] [address] [place] [address] 09/22/2025 3:00 PM EST Office Visit [facility] [address] [facility], [address]nd [place] [address] Lynda Espino PA [address] [address] documented as of this encounter Visit Diagnoses Not on filedocumented in this encounter Additional Health Concerns Assessment Noted Time PHQ-9 Depression Total Score: 0 09/11/20 25 8:38 AM EST A fall risk assessment has been complete d for the patient 09/11/2025 8:39 AM EST A Body Mass Index follow-up plan has been documented for the patient 09/11/2025 9:23 AM EST documented as of this encounter Care Teams Basic Acoustic Analyst Relationship Specialty Start Date End Date Janna Arthur APRN [address] [place] [phone] PCP - General Family Medicine 08/10/23 Nuria Malone MD [address] [facility] [address] [place] [address] Consulting Physician Hematology and Oncology 08/23/21 documented as of this encounter
--- OUTSIDE RECORDS SUMMARY | 2025-09-12 10:12 | XMS_ITS | Encounter Summary ---
Author Organization [facility] Address [address] [place] [address] Care Team Providers Care Software Engineering Supervisor Name Role Phone Nuria Malone MD Unavailable [phone] Janna Arthur APRN Primary Care Provider [phone] Reason for Visit * Reason Comments Med Refill Encounter Details Date Type Department Care Team (Late st Contact Info) Description 08/06/2025 Refill [facility] [address] [facility], 2nd [place] [address] Nuria Malone MD [address] [facility] [place] [address] [place] [address] Malignant neoplasm of right breast in female, estrogen receptor positive, unspecified site of breast (Primary Dx) Social History Tobacco Use Types Packs/Day Years [...] place to sleep or slept in a residential (including now)? No 08/04/2024 Utilities Answer Date [...] Upcoming Encounters Date Type Department Care Team ([facility] st Contact Info) Description 09/22/2025 2:00 PM EST Appointment [facility] [place] [address] [address] [facility] [address] [place] [address] 09/22/2025 3:00 PM EST Office Visit [facility] [address] [facility]nd [place] [address] Lynda Espino PA [address] [facility] [address] [place] [phone] documented as of this encounter Visit Diagnoses Diagnosis Malignant neoplasm of right breast in female, estrogen receptor positive, unspecified site of breast- Primary documented in this encounter Additional Health Concerns Assessment Noted Time PHQ-9 Depression Total Score: 0 02/22/20 22 1:00 PM EDT A fall risk assessment has been complete d for the patient 04/14/2025 3:12 PM EDT A Body Mass Index follow-up plan has been documented for the patient 08/08/2024 8:41 AM EDT documented as of this encounter Care Teams Software Engineering Supervisor Relationship Specialty Start Date End Date Janna Arthur APRN [address] [place] [address] PCP - General Family Medicine 08/10/23 Nuria Malone MD [address] [facility] [address] [address] Consulting Physician Hematology and Oncology 08/23/21 documented as of this encounter
--- OUTSIDE RECORDS SUMMARY | 2025-09-12 10:12 | XMS_ITS | Clinical Summary ---
Author Organization [facility] Address [address] [place] [address] Care Team Providers Care Commercial Lender Name Role Phone Nuria Malone MD Unavailable [phone] Janna Arthur APRN Primary Care Provider [phone] Allergies Active Allergy Reactions Criticality Noted Date Comments Codeine Shortness of breath, Other - please document in the comment field High 08/10/2020 Medications Spacer/Aero-Hol ding Chambers (E-Z Spacer) inhaler use as directed with dulera 017 Active Cranberry (AZO Cranberry Gummies) 250 MG chewable tablet 2 tab(s) orally once a day Active celecoxib (CeleBREX) 200 MG capsule Take 1 capsule (200 mg) by mouth 1 (one) time each day. 022 Active albuterol 108 (90 Base) MCG/ACT inhalerIndicati ons:Moderate persistent asthma without complication Inhale 2 puffs 4 (four) times a day if needed for wheezing. 18 g 11 024 Active Fluticasone Furoate-Vilante rol (Breo Ellipta) 100-25 MCG/ACT aerosol powder Inhale 1 Inhalation 1 (one) time each day. 60 each 3 024 Active tiotropium (Spiriva HandiHaler) 18 MCG inhalation capsuleIndicati ons:Chronic obstructive pulmonary disease, unspecified COPD type (CMS/HCC) Place 1 capsule (18 mcg) into inhaler and inhale 1 (one) time each day. 30 capsule 11 024 Active anastrozole (Arimidex) 1 MG chemo tabletIndicatio ns:Malignant neoplasm of right breast in female, estrogen receptor positive, unspecified site of breast TAKE ONE (1) TABLET BY MOUTH ONCE DAILY 30 tablet Active lisinopril 20 MG tabletIndicatio ns:Essential (primary) hypertension Take 1 tablet by mouth daily. 90 tablet 3 025 Active albuterol 1.25 MG/3ML nebulizer solutionIndicat ions:Chronic obstructive pulmonary disease, unspecified COPD type (CMS/HCC) Take 3 mL by nebulization every 4 hours as needed for wheezing. 360 mL 11 025 Active FLUoxetine (PROzac) 20 MG capsuleIndicati ons:Anxiety and depression Take 1 capsule by mouth daily. 90 capsule 025 Active omeprazole (PriLOSEC) [address] capsuleIndicati ons:Gastroesoph ageal reflux disease without esophagitis Take 1 capsule by mouth daily. Do not crush or chew. 90 capsule 3 025 Active budesonide-form oterol (Symbicort) 160-4.5 MCG/ACT inhaler Inhale 2 puffs 2 times a day. Rinse mouth with water after use to reduce aftertaste and incidence of candidiasis. Do not swallow. Active albuterol 1.25 MG/3ML nebulizer solutionIndicat ions:Chronic obstructive pulmonary disease, unspecified COPD type (CMS/HCC) Take 3 mL (1.25 mg) by nebulization every 4 (four) hours if needed for wheezing. 360 mL 11 024 2024 Discontinued(R eorder) FLUoxetine (PROzac) 20 MG capsuleIndicati ons:Anxiety and depression Take 1 capsule (20 mg) by mouth 1 (one) time each day. 90 capsule 3 024 2024 Discontinued lisinopril 20 MG tabletIndicatio ns:Essential (primary) hypertension Take 1 tablet (20 mg) by mouth 1 (one) time each day. 90 tablet 3 024 2024 Discontinued omeprazole (PriLOSEC) [address] capsuleIndicati ons:Gastroesoph ageal reflux disease without esophagitis Take 1 capsule (40 mg) by mouth 1 (one) time each day. Do not crush or chew. 90 capsule 3 024 2024 Discontinued anastrozole (Arimidex) 1 MG chemo tabletIndicatio ns:Malignant neoplasm of right breast in female, estrogen receptor positive, unspecified site of breast TAKE 1 TABLET BY MOUTH ONCE DAILY 30 tablet 025 2024 Discontinued omeprazole (PriLOSEC) [address] capsuleIndicati ons:Gastroesoph ageal reflux disease without esophagitis TAKE ONE (1) CAPSULE (40 MG) BY MOUTH ONE (1) (ONE) TIME EACH DAY. DO NOT CRUSH OR CHEW. 90 capsule 025 2024 Discontinued(R eorder) lisinopril 20 MG tabletIndicatio ns:Essential (primary) hypertension TAKE ONE (1) TABLET (20 MG) BY MOUTH ONE (1) (ONE) TIME EACH DAY. 90 tablet 025 2024 Discontinued(R eorder) FLUoxetine (PROzac) 20 MG capsuleIndicati ons:Anxiety and depression TAKE ONE (1) CAPSULE (20 MG) BY MOUTH ONE (1) (ONE) TIME EACH DAY. 90 capsule 025 2024 Discontinued(R eorder) FLUoxetine (PROzac) 20 MG capsuleIndicati ons:Anxiety and depression Take 1 capsule by mouth daily. 90 capsule 025 2024 Discontinued(R eorder) lisinopril 20 MG tabletIndicatio ns:Essential (primary) hypertension Take 1 tablet by mouth daily. 90 tablet 025 2024 Discontinued(R eorder) omeprazole (PriLOSEC) [address] capsuleIndicati ons:Gastroesoph ageal reflux disease without esophagitis Take 1 capsule by mouth daily. Do not crush or chew. 90 capsule 025 2024 Discontinued(R eorder) Active Problems Problem Noted Date Diagnosed Date Major depressive disorder, recurrent, moderate 1 Kidney stone 12/03/2022 Malignant neoplasm of right breast in female, estrogen receptor positive 08/24/2021 Cancer Staging:Pathologic stage from 08/18/2020:Stage IA(pT2, pN0(sn), cM0, G2, ER+, NJ+, HER2-, Oncotype DX score: 5) - Signed by Nuria Malone MD on 08/24/2021 Chronic obstructive pulmonary disease 03/19/2018 Arthralgia of multiple sites, bilateral 05/09/20 17 Allergic rhinitis 11/29/2016 Obesity (BMI 30-39.9) 11/29/2016 Sleep disorder 11/29/2016 Hyperlipidemia 03/03/2015 Essential (primary) hypertension 01/30/2015 Depression 01/30/2015 Esophageal reflux 01/30/2015 Encounters Date Type Department Care Team Description 09/11/2025 8:20 AM EST Office Visit [facility] [address] [place] [address] Janna Arthur APRN Routine general medical examination at health care facility (Primary Dx); Essential (primary) hypertension; Chronic obstructive pulmonary disease, unspecified COPD type (CMS/HCC); Anxiety and depression; Gastroesophageal reflux disease without esophagitis 09/11/2025 Travel 09/07/2025 Refill [facility] [address] [place] [address] Janna Arthur, IT HELP DESK MANAGER Anxiety and depression; Essential (primary) hypertension; Gastroesophageal reflux disease without esophagitis 09/03/2025 Refill [facility] [address] [place] [address] Nuria Malone MD Malignant neoplasm of right breast in female, estrogen receptor positive, unspecified site of breast 09/03/2025 Refill [facility] [address] [place] [address] Janna Arthur, IT HELP DESK MANAGER Gastroesophageal reflux disease without esophagitis; Essential (primary) hypertension; Anxiety and depression 08/06/[address] [place] [address] Nuria Malone MD Malignant neoplasm of right breast in female, estrogen receptor positive, unspecified site of breast (Primary Dx) from Last 3 Months Immunizations Immunization Administration Dates Next Due [employer] COVID-19 Vaccine (Blue Cap) 18+ 10/03/20 21,01/12/2021 TD (adult), 2 Lf tetanus tox oid, preservative free, adsorbed 01/06/1997 Family History Medical History Relation Name Comments Asthma Father Asthma Mother Relation Name Status Comments Father Mother Social History Tobacco Use Types Packs/Day Years Used Date Smoking Tobacco: Former Cigarettes 1 20 1 988 - 2007 Passive Smoke Exposure: Past [...] any time in the past 12 m [facility], were you homeless or living in a custodial (including now)? No 09/11/2025 [facility] Utilities Answer Date Recorded In the [...] F) 09/11/2025 8:33 AM EST Respiratory Rate 16 04/14/2025 3:12 PM EDT Oxygen Saturation 96% 09/11/2025 8:33 AM EST Inhaled Oxygen Concentration - - Weight 78 kg (171 lb 15.3 oz) 09/11/2025 8:33 AM EST Height 160 cm (5' 3 ) 09/11/2025 8:33 AM EST Body Mass Index 30.46 09/11/2025 8:33 AM EST Plan of Treatment Upcoming Encounters Date Type Department Care Team (Late st Contact Info) Description 09/22/2025 2:00 PM EST Appointment [facility] [address] [place] [address] 09/22/2025 3:00 PM EST Office Visit [facility] [address] [facility], [address] [place] [address] Lynda Espino, ALBA [address] [facility] [address] [place] [address] Health Maintenance Due Date Last Done Comments [facility]-Hepatitis C Screening 1955 [facility]-Pneumococcal Vaccine: 50+ Years (1 of 2 - PCV) 1972 [facility]-Zoster Vaccines (1 of 2) 1972 [facility]-DTaP,Tdap,and Td Vaccines (1 - Tdap) 01/07/1997 01/06/1997 CT Colonography 1998 Colonoscopy 1998 FIT-DNA 1998 FIT 1998 FOBT 1998 Sigmoidoscopy 1998 [facility]-Colorectal Cancer Screening 1998 [id number] Vaccine ( - season) 2025 10/03/2021, 01/12/2021 [facility]-Influenza Vaccine (#1) 2025 [facility]- SDOH Screenings 03/11/2026 [facility]-Adult SDOH Screenings 03/11/2026 09/11/2025 [facility]-/Child/Adol SDOH Screenings 03/11/2026 09/11/2025 [facility]-Bone Density Scan 09/01/2026 09/01/2024 [facility]-Depression Screening 09/11/2026 025, 09/11/2025, 02/27/2024 [facility]-Medicare Annual Wellness (AWV) 09/11/2026 09/11/2025, 08/08/2024 [facility]-RSV Vaccine: 60+ Years or (1 - 1-dose 75+ series) 2028 [facility]-Diabetes: Hemoglobin A1C Discontinued 05/15/2022, 12/17/2018, 05/09/2017, Additional history exists [facility]-Obesity Intervention Completed 025, 09/11/2025, 09/11/2025, Additional history exists HPV Vaccines Aged Out No longer eligi ble based on patient's age to complete this topic [facility]-HIB Vaccines Aged Out No longer e ligible based on patient's age to complete this topic [facility]-Hepatitis A Vaccines Aged Out No longer eligible based on patient's age to complete this topic [facility]-IPV Vaccines Aged Out No longer e ligible based on patient's age to complete this topic [facility]-Rotavirus Vaccines Aged Out No lo nger eligible based on patient's age to complete this topic Procedures Procedure Name Priority Date/Time Associated Diagnosis Comments DEXA BONE DENSITY Routine 09/01/2024 12: 11 PM EDT Malignant neoplasm of right breast in female, estrogen receptor positive, unspecified site of breast (CMS/HCC) Use of anastrozole HEMOGLOBIN A1C Routine 05/15/2022 4:10 PM EDT Prediabetes from Last 3 Months or Most Recently Relevant to Health Maintenance Results * Dexa Bone Density (09/01/2024 12:11 PM EDT) Anatomical Region Laterality Modality L-spine Radio Fluoroscop y Narrative 09/07/2024 4:14 PM EST [facility] [address] [place] [address] DXA Bone Densitometry Report: [09/01/2024] BMD test performed using the SpectraSensorsXA DXA System (analysis version: 14.10) manufactured by [employer]. REFERRING PROVIDER: Dr. Megan Bonds APRN CLINICAL INFORMATION: osteoporosis PATIENT NAME: Josey Morales PATIENT AGE: 69 y.o. LEGAL SEX: female RADIOGRAPHIC VIEWS: Sites scanned: AP Spine, HIP Right , HIP Left, and TBS COMPARISON STUDY: DXA Axial 03/01/2021 and TBS 03/01/2021 FINDINGS: Based on WHO criteria (post-menopausal female) the diagnosis is Osteopenia The lowest T- score is -2.3 in the LFN There is Decline compared to prior measurements FRAX (10-year probability of fracture) - Major Osteoporotic: 13.5 %; Hip: 3.2 % The presence of arthritic or degenerative joint changes in the spine could artefactually increase measured BMD. TBS: The TBS L1-L4 of 1.159 indicates degraded microarchitecture FRAX (10-year probability of fracture) - corrected for TBS: Major Osteoporotic: 15.8 %; Hip: 3.9 % TREATMENT RECOMMENDATIONS: Measured bone density crosses threshold for treatment based upon FRAX criteria Specific anti-osteoporotic therapy should be considered given high risk of future fracture Work up for secondary osteoporosis and metabolic bone disease could be considered based on clinical indications. Suggest VFA for complete evaluation. Suggest general measures to optimize calcium and vitamin D status, fall prevention measures and reduce fracture risk. Consider repeating this study in 1 year(s) or as clinically indicated to assess bone density change or response to treatment (should be performed on the same DXA scanner to allow for direct comparison and calculation of change in BMD). Megan Bonds APRN IM DXA PROCEDURES Final Result * Hemoglobin A1c (05/15/2022 4:10 PM EDT) Hemoglobin A1c 5.4 <5.7 % 05/15/2022 6:09 PM EDT [facility] Blood Venous blood specimen / Unknown Venipuncture / Unknown 05/15/2022 4:10 PM EDT 05/15/2022 4:10 PM EDT Narrative [facility] - 05/15/2022 6:09 PM EDT HA1C Interpretive Data: Diagnosis of Diabetes: Diabetic > or = 6.5% Pre-diabetic 5.7 to 6.4% Non-diabetic < or = 5.6% Glycemic Targets for Type I and Type II Diabetics: Non- Adults <7.0% Adults <6.0% Children and Adolescents <7.5% Source: [place] [employer]. Standards of medical care in diabetes,2017. Diabetes Care.2017:40 (suppl 1):S1-S135. HbA1c assay performed by an ion-exchange chromatography method that is certified traceable to the DCCT. us Laury Schaffer APRN LAB BLOOD ORDERABLES Nell parra Result [facility] [address] [place] [address] from Last 3 Months or Most Recently Relevant to Health Maintenance [place] [address] [facility] Care Teams Commercial Lender Relationship Specialty Start Date End Date Janna Arthur APRN [address] [place] [address] PCP - General Family Medicine 08/10/23 Nuria Malone MD [address] [facility] [address] [address] Consulting Physician Hematology and Oncology 08/23/21
--- NOTE | 2025-09-12 10:20 | ECG_ITS ---
APPROVED REPORT Exam: Resting ECG HR:85 bpm ECG Measurements Heart Rate 85 AXES QRSd 97 QRS 79 QT 348 T 23 QTc 390 Conclusion ATRIAL FIBRILLATION WITH ABERRANT CONDUCTION OR VENTRICULAR PREMATURE COMPLEXES NONSPECIFIC T-WAVE ABNORMALITY ABNORMAL RHYTHM ECG UNCONFIRMED REPORT Electronically signed by : ADELA FUENTES, 09/13/2025 02:17:37
--- NOTE | 2025-09-12 11:01 | XR_ITS ---
PROCEDURE INFORMATION: Exam: XR Chest Exam date and time: 09/12/2025 11:36 AM Age: 70 years old Clinical indication: Other: Dizziness TECHNIQUE: Imaging protocol: Radiologic exam of the chest. Views: 1 view. COMPARISON: CT ANGIO CHEST PE PROTOCOL 01/09/2025 2:34 PM FINDINGS: Lungs: Mildly hyperinflated lungs with emphysematous changes. The lungs are clear. Pleural spaces: Unremarkable. No pleural effusion. No pneumothorax. Heart/Mediastinum: Apparent cardiomegaly. Mediastinal contours unremarkable. Bones/joints: Unremarkable. IMPRESSION: 1. Mildly hyperinflated lungs with emphysematous changes. The lungs are clear. 2. Apparent cardiomegaly.
[2025-09-12 11:08] LABS: Hematocrit 44.1 % (37.0-47.0); Hemoglobin 14.9 g/dL (12.2-16.2); Immature Granulocytes % 0.5 %; Mean Corpuscular HGB Conc 33.8 g/dL (31.8-35.4); Mean Corpuscular Hemoglobin 31.7 pg (27.0-31.2); Mean Corpuscular Volume 93.8 fl (81-99); Nucleated Red Blood Cells % 0 %; Platelet Count 258 K/mm3 (142-424); Red Blood Count 4.70 M/mm3 (4.20-5.40); Red Cell Distribution Width-SD 45.6 fL; White Blood Count 7.9 K/mm3 (4.8-10.8)
[2025-09-12 11:09] LABS: Albumin Level 4.5 g/dl (3.5-5.0); Chloride 104 mmol/L (98-107); Potassium 4.1 mmoL/L (3.5-5.1); Sodium 137 mmol/L (136-145)
[2025-09-12 11:11] LABS: Blood Urea Nitrogen 18 mg/dl (7-17); Creatinine Clearance Estimated 59 mL/min (50-200); Creatinine,Serum 0.60 mg/dl (0.52-1.04); Estimated Glomerular Filt Rate 98 ml/min (>60); GFR (African American) 119 ML/MIN (>60)
[2025-09-12 11:12] LABS: Alanine Aminotransferase 14 U/L (12-78); Albumin/Globulin Ratio 2.1 (1.1-1.8); Alkaline Phosphatase 94 U/L (38-126); Anion Gap 11.1 mEq/L (5-15); Aspartate Amino Transferase 26 U/L (14-36); Bilirubin,Total 0.9 mg/dl (0.2-1.3); Calcium 8.5 mg/dl (8.4-10.2); Carbon Dioxide 26 mmol/L (22.0-30.0); Globulin 2.1 g/dL (1.3-3.2); Glucose 140 mg/dl (74-100); Magnesium 2.1 mg/dl (1.6-2.3); Total Protein,Serum 6.6 g/dl (6.3-8.2)
[2025-09-12 11:25] LABS: Troponin I < 0.01 ng/ml (0.00-0.034)
[2025-09-12 11:29] LABS: T4 (Thyroxine) 12.2 ug/dl (5.53-11.0)
[2025-09-12 11:43] LABS: Thyroid Stimulating Hormone 2.44 uIU/mL (0.465-4.68)
--- NOTE | 2025-09-12 11:54 | CT_ITS ---
PROCEDURE INFORMATION: Exam: CTA Head With Contrast, Arteriography Exam date and time: 09/12/2025 1:40 PM Age: 70 years old Clinical indication: Stroke-like symptoms; Other: Vertigo; Additional info: Vertigo nausea TECHNIQUE: Imaging protocol: Computed tomographic angiography of the head with contrast. Exam focused on the arteries. 3D rendering (Not supervised by radiologist): MIP and/or 3D reconstructed images were created by the technologist. Radiation optimization: All CT scans at this facility use at least one of these dose optimization techniques: automated exposure control; mA and/or kV adjustment per patient size (includes targeted exams where dose is matched to clinical indication); or iterative reconstruction. Contrast material: ISO 370; Contrast volume: 80 ml; Contrast route: INTRAVENOUS (IV); COMPARISON: CT HEAD/BRAIN WO CON 09/12/2025 1:37 PM FINDINGS: Limitations: Images are acquired in late venous phase with suboptimal assessment of arterial structures. ANTERIOR CIRCULATION: Right internal carotid artery: Intracranial segment is patent with no significant stenosis. No aneurysm. Right middle cerebral artery: No occlusion or significant stenosis. No aneurysm. Right anterior cerebral artery: No occlusion or significant stenosis. No aneurysm. Left internal carotid artery: Intracranial segment is patent with no significant stenosis. No aneurysm. Left middle cerebral artery: No occlusion or significant stenosis. No aneurysm. Left anterior cerebral artery: The A1 segment of the left anterior cerebral artery is the dominant supply of the anterior cerebral circulation. POSTERIOR CIRCULATION: Right vertebral artery: No occlusion or significant stenosis. No aneurysm. Left vertebral artery: No occlusion or significant stenosis. No aneurysm. Basilar artery: No occlusion or significant stenosis. No aneurysm. Right posterior cerebral artery: There is origin of the right posterior cerebral artery. There is no P1 segment. Left posterior cerebral artery: No occlusion or significant stenosis. No aneurysm. Veins: There is no evidence of venous sinus thrombosis. Brain: There is no evidence of intracranial large vessel stenosis or occlusion. Cerebral ventricles: No ventriculomegaly. Bones/joints: Unremarkable. No acute fracture. Soft tissues: Unremarkable. IMPRESSION: 1. Images are acquired in late venous phase with suboptimal assessment of arterial structures. 2. There is origin of the right posterior cerebral artery. There is no P1 segment. 3. The A1 segment of the left anterior cerebral artery is the dominant supply of the anterior cerebral circulation. 4. There is no evidence of intracranial large vessel stenosis or occlusion. 5. There is no evidence of venous sinus thrombosis.
--- NOTE | 2025-09-12 11:54 | CT_ITS ---
PROCEDURE INFORMATION: Exam: CTA Neck With Contrast Exam date and time: 09/12/2025 1:40 PM Age: 70 years old Clinical indication: Stroke-like symptoms; Other: Vertigo; Additional info: Vertigo nausea TECHNIQUE: Imaging protocol: Computed tomographic angiography of the neck with contrast. Exam focused on the cervical segments of the vasculature. 3D rendering (Not supervised by radiologist): MIP and/or 3D reconstructed images were created by the technologist. Radiation optimization: All CT scans at this facility use at least one of these dose optimization techniques: automated exposure control; mA and/or kV adjustment per patient size (includes targeted exams where dose is matched to clinical indication); or iterative reconstruction. Contrast material: ISO 370; Contrast volume: 80 ml; Contrast route: INTRAVENOUS (IV); COMPARISON: CT ANGIO CHEST PE PROTOCOL 01/09/2025 2:34 PM FINDINGS: Right common carotid artery: No stenosis. No dissection or occlusion. Right internal carotid artery: There is mild calcification of the right internal carotid origin with less than 50% compromise of the lumen. Right external carotid artery: No occlusion or stenosis of the origin. Left common carotid artery: No stenosis. No dissection or occlusion. Left internal carotid artery: There is minimal calcification of the left internal carotid origin with less than 50% compromise of the lumen. Left external carotid artery: No occlusion or stenosis of the origin. Right vertebral artery: There is a non dominant right vertebral artery with no evidence of dissection or stenosis. Left vertebral artery: There is a dominant left vertebral artery with no evidence of dissection or stenosis. Brachiocephalic artery: There is a bovine aortic arch, with a common origin of the left common carotid and brachiocephalic arteries. Thyroid: Multinodular thyroid is observed with no lesion larger than 15 mm. Follow-up is not recommended. Lymph nodes: There are multiple small calcified lymph nodes in the mediastinum, consistent with remote granulomatous organism exposure. Soft tissues: Normal. No significant soft tissue swelling. Bones/joints: No acute fracture. Lungs: Confluent centrilobular emphysematous changes are present in the lungs. IMPRESSION: 1. Confluent centrilobular emphysematous changes are present in the lungs. 2. There is mild calcification of the right internal carotid origin with less than 50% compromise of the lumen. 3. There is minimal calcification of the left internal carotid origin with less than 50% compromise of the lumen. 4. There is a dominant left vertebral artery with no evidence of dissection or stenosis. 5. There is a non dominant right vertebral artery with no evidence of dissection or stenosis. REFERENCES: NASCET CRITERIA. The degree of stenosis in the cervical segment of the internal carotid artery is based on NASCET criteria. Normal is no stenosis. Mild is less than 50% stenosis. Moderate is 50-69% stenosis. Severe is 70% to 99% stenosis. Total occlusion is no detectable patent lumen.
--- NOTE | 2025-09-12 11:54 | CT_ITS ---
PROCEDURE INFORMATION: Exam: CT Head Without Contrast Exam date and time: 09/12/2025 1:37 PM Age: 70 years old Clinical indication: Stroke-like symptoms; Other: Vertigo; Additional info: Chronic vertigo acute nausea TECHNIQUE: Imaging protocol: Computed tomography of the head without contrast. Radiation optimization: All CT scans at this facility use at least one of these dose optimization techniques: automated exposure control; mA and/or kV adjustment per patient size (includes targeted exams where dose is matched to clinical indication); or iterative reconstruction. Other technique: STROKE PROTOCOL was implemented. COMPARISON: No relevant prior studies available. FINDINGS: Brain: Normal. No hemorrhage. Unremarkable white matter. No mass effect. Cerebral ventricles: No ventriculomegaly. Paranasal sinuses: Visualized sinuses are unremarkable. No fluid levels. Mastoid air cells: Visualized mastoid air cells are well aerated. 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 Soft tissues: Unremarkable. Vasculature: The vasculature demonstrates diffuse moderate atherosclerotic calcification. IMPRESSION: No acute intracranial process is identified. ASSESSMENT: ASPECTS ([place] Stroke Program Early CT Score) is 10.
--- NOTE | 2025-09-12 11:55 | [facility].EDGENADL ---
Discharge Plan Disposition Patient Disposition: Home, Self-Care Prescriptions Prescriptions: No Action celecoxib 200 mg capsule 200 mg PO DAILY omeprazole 40 mg capsule,delayed release(DR/EC) 40 mg PO DAILY fluoxetine 20 mg capsule 20 mg PO DAILY lisinopril 20 mg tablet 20 mg PO DAILY Referrals Follow up/Referrals: Petra Oliva [Primary Care Provider, Medical] - See instructions Maxim Stacy MD [Staff Physician, Cardiology] - See instructions Activity Restrictions/Add. Instructions Additional Instructions/Restrictions: At this time it was felt you are safe to be discharged home. If new or worsening symptoms please do not hesitate to return the emergency department. Please follow-up with your family doctor for continued evaluation of your chronic dizziness. I have referred you to cardiology for evaluation of your presyncope. However if you go home and pass out again I do want you to come back to the emergency department. Please call and schedule an appoint with them as soon as you are able. Clinical Impressions Clinical Impression: Vasovagal episode, Dizziness Print Language Print Language: Mongolian Discharge ED Provider: Paul Busby General Adult HPI General Chief complaint: Dizziness Stated complaint: Near Syncope Time Seen by Provider: 09/12/25 10:20 Mode of Arrival: EMS Source of Information: Patient and EMS Description of Symptoms (Recalled from ER Triage Doc. by RN): pt presents to ED with c/o dizziness with no fall. pt reports that she was fine she woke up this morning and then she began to feel dizzy History of Present Illness HPI narrative: Patient is a 70-year-old female with past medical history of previous breast cancer status postresection who presents emergency department for evaluation of dizziness. Patient states that she was awake this morning in the kitchen making her coffee she had not eaten yet when she was walking to the table and felt nonspecific dizziness and lightheadedness. Patient did not fall and did not strike her head. Of note she states that she has had vertigo that is only present when she lays down for the last 6 months that has not been evaluated. No other acute complaints at this time no chest pain no abdominal pain no extremity pain patient is still able to ambulate no vision changes reported. Please note that above description of symptoms, in this electronic medical record under categorization of recalled from ER triage doctor by RN are reflective of an initial nursing assessment, however, is not reflective of my full history and physical exam that was personally taken and clarified. Consequentially, this preceding description of symptoms, which may include the patient's categorized chief complaint in the EMR, do not reflect my personal clinical impression, and the ultimate description of history of present illness and patient stated complaints should be deferred to this section of the note. Unless stated otherwise or congruent with this section of the note, additional signs, symptoms, or incongruence should be interpreted as inaccurate with my clinical impression. Related Data Home Medications ?Medication ?Instructions ?Recorded ?Confirmed celecoxib 200 mg capsule 200 mg PO DAILY Arthritis 10/25/22 04/05/25 fluoxetine 20 mg capsule 20 mg PO DAILY Anxiety 10/25/22 04/05/25 omeprazole 40 mg capsule,delayed 40 mg PO DAILY GERD 10/25/22 04/05/25 release lisinopril 20 mg tablet 20 mg PO DAILY 04/05/25 04/05/25 Allergies Allergy/AdvReac Type Severity Reaction Status Date / Time codeine Allergy Intermediate Palpitation Verified 04/05/25 08:11 s [facility] Disclaimer: The information contained in this section may have been updated after the patient was seen, as this information can be updated by other users. Medical History (Updated 09/12/25 @ 14:42 by Paul Busby MD) History of breast cancer Pyogenic granuloma of nares Epistaxis Surgical History (Updated 04/05/25 @ 08:10 by Marissa Holm RN) Hx of hysterectomy Hx of right mastectomy Social History Smoking Status: Never smoker alcohol intake: never current occupational status: retired Travel in the last 8 weeks?: None Have you lived/traveled outside [place] in past 30 days?: No Contact w/someone who lives/traveled outside US past 30 days?: No Exposure to someone with infectious disease in past 14 days?: No Do you have a fever (greater than 100.4 F or 38 C)?: No Have you tested positive for COVID-19?: No Exposed to someone with COVID-19 in past 14 days?: No Do you have a sore throat?: No Do you have a cough?: No Do you have any weakness?: No Do you have any diarrhea?: No Are you experiencing any unusual bleeding?: No Do you have any muscle aches/pain?: No Do you have any abdominal pain?: No Are you experiencing loss of taste or smell?: No Other Medical History Have you received the Flu Vaccine for this season: No Have you received the Pneumonia Vaccine: No ROS Obtained: Yes Systems reviewed as appropriate & no additional complaints except as documented Physical Exam General General appearance: alert and in no apparent distress Head Head exam: atraumatic and normocephalic Eye Eye exam: Present PERRL and EOMI ENT ENT exam: Present mucous membranes moist and TM's normal bilaterally Neck Neck exam: Present normal inspection Chest Chest inspection: Present normal inspection and symmetric chest wall rise Respiratory Respiratory exam: Present normal lung sounds bilaterally; Absent respiratory distress Cardiovascular Cardiovascular exam: Present regular rate and normal rhythm Abdominal Exam Abdominal exam: Present soft; Absent tenderness Extremities Exam Extremities exam: Present normal inspection Neurological Exam Neurological exam: Present alert, CN II-XII intact and other; Absent motor sensory deficit Psychiatric Psychiatric exam: Present normal affect Skin Skin exam: Present warm and dry Medical Decision Making Medical Records Screening: Per USPSTF and CDC recommendations, given the prevalence of disease in our region, it is our hospital?s policy to screen for HIV and viral Hepatitis for all patients aged 18 and over and those with ongoing risk factors. Deon Inquiry Pt receiving controlled substance: No Vital Signs: 09/12/25 10:04 09/12/25 10:06 09/12/25 10:30 Temperature 97.9 F Temperature Source Oral Pulse Rate 64 61 Pulse Rate [Left Radial] 59 L Respiratory Rate 16 Blood Pressure 128/62 125/67 Blood Pressure [Right Arm] 128/62 Blood Pressure Mean [Right Arm] 84 02 Sat by Pulse Oximetry 99 98 97 Oxygen Delivery Method 09/12/25 11:01 09/12/25 11:31 09/12/25 12:00 Temperature Temperature Source Pulse Rate 62 66 66 Pulse Rate [Left Radial] Respiratory Rate Blood Pressure 128/55 L 134/61 145/77 H Blood Pressure [Right Arm] Blood Pressure Mean [Right Arm] 02 Sat by Pulse Oximetry 96 98 97 Oxygen Delivery Method Room Air Room Air Lab Data Lab Results 09/12/25 10:17: WBC 7.9, RBC 4.70, Hgb 14.9, Hct 44.1, MCV 93.8, MCH 31.7 H, MCHC 33.8, RDW 13.3, Plt Count 258, MPV 10.5 H, Neut % (Auto) 48.0, Lymph % (Auto) 40.3, Donley % (Auto) 8.6, Eos % (Auto) 1.7, Baso % (Auto) 0.9, Neut # (Auto) 3.8, Lymph # (Auto) 3.2, Donley # (Auto) 0.7, Eos # (Auto) 0.1, Baso # (Auto) 0.1, Sodium 137, Potassium 4.1, Chloride 104, Carbon Dioxide 26, Anion Gap 11.1, BUN 18 H, Creatinine 0.60, Estimated Creat Clear 59, Estimated GFR 98, Est GFR ( Amer) 119, Glucose 140 H, Calcium 8.5, Magnesium 2.1, Total Bilirubin 0.9, AST 26, ALT 14, Alkaline Phosphatase 94, Troponin I < 0.01, Total Protein 6.6, Albumin 4.5, Globulin 2.1, Albumin/Globulin Ratio 2.1 H, TSH 2.44, Thyroxine (T4) 12.2 H 09/12/25 10:17 09/12/25 10:17 Orders (Tests/Meds): ED MEDICATIONS Discontinued Medications Generic Name Dose Route Start Last Admin Trade Name Freq PRN Reason Stop Dose Admin Lactated Ringer's 1,000 mls @ 999 mls/hr 09/12/25 11:55 09/12/25 13:09 Lactated Ringer's 1000 Ml Bag IV 09/12/25 12:55 Infused .Q1H1M ONE Infusion Iopamidol 85 ml 09/12/25 13:39 09/12/25 13:40 Iopamidol-370 (76%);100ml Bottle IV 09/12/25 13:40 85 ml ONCE ONE Administration Meclizine HCl 25 mg 09/12/25 11:56 09/12/25 12:21 Meclizine 25mg Tablet PO 09/12/25 11:57 25 mg ONCE ONE Administration Ondansetron HCl 4 mg 09/12/25 11:54 09/12/25 12:01 Ondansetron 4mg/2ml Vial IV 09/12/25 11:55 4 mg ONCE ONE Administration Sodium Chloride 40 ml 09/12/25 13:39 09/12/25 13:40 0.9 % Sodium Chloride 50 Ml Vial IV 09/12/25 13:40 40 ml ONCE ONE Administration Sodium Chloride 10 ml 09/12/25 13:39 09/12/25 13:40 Sodium Chloride 0.9% 10ml Syr (Rad Only) IV 09/12/25 13:40 10 ml ONCE ONE Administration ORDERS Category Date Time Status CT angio head Stat Cat Scan 09/12/25 11:[address] angio neck Stat Cat Scan 09/12/25 11:[address] head/brain wo con Stat Cat Scan 09/12/25 11:54 Completed XR chest portable Stat Exams 09/12/25 11:01 Completed Complete Blood Count Auto Diff Stat Lab 09/12/25 10:17 Completed Comprehensive Metabolic Panel Stat Lab 09/12/25 10:17 Completed Magnesium Stat Lab 09/12/25 10:17 Completed T4 (Thyroxine) Stat Lab 09/12/25 10:17 Completed Thyroid Stimulating Hormone Stat Lab 09/12/25 10:17 Completed Troponin I Q3H Lab 09/12/25 14:15 Ordered Troponin I Q3H Lab 09/12/25 17:15 Ordered Troponin I Stat Lab 09/12/25 10:17 Completed EKG Request [ECG Request] Stat Y 09/12/25 10:07 Stop Req ECG Data Tracing #1: Independently interpreted by me rate is 85, rhythm is irregular, axis is normal, sinus rhythm with abnormal intermittent complexes, no ST elevation in anatomical contiguous leads. QTc 390. Medical Decision Narrative: In summary patient is 70-year-old female with past medical history of described above presents emergency department for evaluation of dizziness and presyncope. Patient is hemodynamically stable nontoxic-appearing arrival, afebrile. We did specked to her chronic dizziness for the last 6 months that is only present when she lays down differential diagnosis includes positional dizziness with inner ear problems, cervical artery stenosis, intracranial mass, among others. With respect to her presyncope I suspect that she had vasovagal presyncope as she has not eaten today and was upright in the kitchen walking around. Workup in totality ruling out alternative causes will be conducted with hematologic labs noncontrasted CT scan of the head CTA of the head and neck chest x-ray EKG. Initial inventions include Zofran, meclizine, crystalloid bolus. Initial work reviewed by me, hematologic labs are nonactionable no significant leukocytosis no transfusable anemia no BRUCE or critical electrolyte abnormalities troponin undetectably low. Noncontrasted CT scan of the head no acute intracranial abnormality. CT of the head the images are acquired in late venous phase with suboptimal assessment but there are no evidence of intracranial large vessel stenosis or occlusion, there are origin of the right [employer] A1 segment of the left anterior cerebral artery is the dominant supply, no venous sinus thrombosis. CTA neck minimal for calcification of the bilateral internal carotid arteries no evidence of dissection or critical stenosis. Given this upon repeat evaluation patient continued to be well-appearing and was ambulatory at bedside. I suspect that patient's presyncope is vasovagal and orthostatic in nature. Her dizziness is chronic I do not think patient is have any acute cerebrovascular accident. Given this patient is appropriate for discharge at this time and was given multiple return precautions and verbalized understanding. Critical Care Critical Care Time Critical Care Time: No
[2025-09-12] MEDS: LACTATED RINGERS 1000ML 1,000 ML 999 ML IV (12:01)
[2025-09-12] MEDS: ONDANSETRON 4MG/2ML VIAL 4 MG IV (12:01)
[2025-09-12] MEDS: MECLIZINE 25MG TABLET 25 MG PO (12:21)
[2025-09-12] MEDS: 0.9 % SODIUM CHLORIDE 50 ML VIAL 40 ML IV (13:40)
[2025-09-12] MEDS: IOPAMIDOL-370 (76%);100ML BOTTLE 85 ML IV (13:40)
[2025-09-12] MEDS: SODIUM CHLORIDE 0.9% 10ML SYR (RAD ONLY) 10 ML IV (13:40)
--- NOTE | 2025-09-12 14:12 | PC.NURSE ---
hussain hwang on phone with HENOK
--- NOTE | 2025-09-12 14:39 | PC.NURSE ---
pt ambulatory around nurses station with assistance from staff and family.
== END 2025-09-12 15:04 | disposition home or self-care (01) ==
PROVIDERS: Emergency Provider Emergency Medicine; PCP Nurse Practitioner Family
DX: R55 Syncope and collapse (principal); R42 Dizziness and giddiness
CPT/HCPCS: 70450; 70496; 70498; 71045; 80053; 83735; 84436; 84443; 84484; 85025; 93005; 96361; 96374; 99285; J2405; J7120; Q9967

== ENCOUNTER 2025-09-23 10:45 | Outpatient (CLI) | payer MEDICARE, BC, SELFPAY ==
[2025-09-23 17:39] LABS: Albumin Level 4.0 g/dl (3.5-5.0)
[2025-09-23 17:42] LABS: Alanine Aminotransferase 12 U/L (12-78); Alkaline Phosphatase 100 U/L (38-126); Aspartate Amino Transferase 23 U/L (14-36); Bilirubin,Direct 0.1 mg/dl (0.0-0.4); Bilirubin,Indirect 0.4 mg/dL (0.0-0.9); Bilirubin,Total 0.5 mg/dl (0.2-1.3); Bilirubin,Unconjugated 0.4 mg/dL (0.0-1.1); Cholesterol 186 mg/dl (140-200); Total Protein,Serum 6.8 g/dl (6.3-8.2); Triglycerides 71 mg/dl (30-150)
[2025-09-23 17:43] LABS: HDL Cholesterol 50 mg/dl (40-60)
== END 2025-09-23 23:59 | disposition home or self-care (01) ==
LOC: LAB 10:46
PROVIDERS: PCP Nurse Practitioner Family; Visit Provider Nurse Practitioner Family
DX: I49.1 Atrial premature depolarization (principal); I47.19 Other supraventricular tachycardia; I49.3 Ventricular premature depolarization; I47.29 Other ventricular tachycardia; I10 Essential (primary) hypertension; R55 Syncope and collapse; R94.31 Abnormal electrocardiogram [ECG] [EKG]
CPT/HCPCS: 36415; 80061; 80076; 93270

== ENCOUNTER 2025-10-07 08:35 | Outpatient (CLI) | payer MEDICARE, BC, SELFPAY ==
--- OUTSIDE RECORDS SUMMARY | 2025-09-11 08:20 | XMS_ITS | Encounter Summary ---
Author Organization [facility] Address [address] [place] [address] Care Team Providers Care Manager Inside Name Role Phone Nuria Malone MD Unavailable [phone] Janna Arthur APRN Primary Care Provider [phone] Reason for Visit * Reason Comments Medicare Annual Wellness Visit Initial Encounter Details Date Type Department Care Team (Late st Contact Info) Description 09/11/2025 8:20 AM EST Office Visit [facility] [address] [place] [address] Janna Arthur, LAKESHA [address] [place] [address] Routine general medical examination at health care facility (Primary Dx); Essential (primary) hypertension; Chronic obstructive pulmonary disease, unspecified COPD type (CMS/HCC); Anxiety and depression; Gastroesophageal reflux disease without esophagitis Social History Tobacco Use Types Packs/Day Years Used Date Smoking Tobacco: Former Cigarettes 988 - 2007 Passive Smoke Exposure: Past Smokeless Tobacco: Never Tobacco Cessation:Counseling Given: Not Answered Alcohol Use Standard Drinks/Week Comments No 0 (1 standard drink = 0.6 oz pure alcohol) Alcoholic Drinks/day: No history of alcohol use AUDIT-C Answer Date Recorded Q1: How often do you have a drink containing alcohol? Never 08/04/2024 Q2: How many drinks containi ng alcohol do you have on a typical day when you are drinking? Patient does not drink Q3: How often do you have si x or more drinks on one occasion? Never 08/04/2024 PHQ-2 Answer Date Recorded Patient Health Questionnaire-2 Score 0 09/11/2025 Exercise Vital Sign Answer Date Recorde d On average, how many days pe r week do you engage in moderate to strenuous exercise (like a brisk walk)? 0 days 08/04/2024 On average, how many minutes do you engage in exercise at this level? 0 min 08/04/2024 PHQ-9 Answer Date Recorded Patient Health Questionnaire-9 Score 0 09/11/2025 Humiliation, Afraid, Rape, and Kick questionnair e Answer Date Recorded Within the last year, have y ou been afraid of your partner or ex-partner? No 09/11/2025 Within the last year, have y ou been humiliated or emotionally abused in other ways by your partner or ex-partner? No Within the last year, have y ou been kicked, hit, slapped, or otherwise physically hurt by your partner or ex-partner? No 09/11/2025 Within the last year, have y ou been raped or forced to have any kind of sexual activity by your partner or ex-partner? No 09/11/2025 Hunger Vital Sign Answer Date Recorded Within the past 12 months, y ou worried that your food would run out before you got the money to buy more. Never true 09/11/20 25 Within the past 12 months, t he food you bought just didn't last and you didn't have money to get more. Never true 09/11/2025 PRAPARE - Transportation Answer Date Re corded In the past 12 months, has l ack of transportation kept you from medical appointments or from getting medications? No 05/2025 In the past 12 months, has l ack of transportation kept you from meetings, work, or from getting things needed for daily living? No 09/11/2025 Housing Stability Vital Sign Answer Waqas e Recorded In the last 12 months, was t here a time when you were not able to pay the mortgage or rent on time? No 09/11/2025 Number of Times Moved in the Last Year Not on fi le 09/11/2025 At any time in the past 12 m [facility], were you homeless or living in a long term (including now)? No 09/11/2025 [facility] Utilities Answer Date Recorded In the past 12 months has th [employer], gas, oil, or water company threatened to shut off services in your home? No 09/11/2025 Safety and Environment Answer Date Mikey rded Do you worry that your child may have been physically abused? Patient unable to answer 09/11/2025 Do you worry that your child may have been sexually abused? Patient unable to answer 09/11/2025 Are there any guns kept in o r around your home or where your child spends time? Patient unable to answer 09/11/2025 Guns Unloaded or Locked Away Not on file 05/2025 PHQ-2A Answer Date Recorded Depression Risk 0 02/27/2024 Comments No Sex and Gender Information Value Date Recorded Sex Assigned at Not on file Legal Sex Female 5:59 PM EDT Gender Identity Not on file Sexual Orientation Not on file documented as of this encounter Last Filed Vital Signs Vital Sign Reading Time Taken Comments Blood Pressure 138/80 09/11/2025 8:33 AM EST Pulse 74 09/11/2025 8:33 AM EST Temperature 36.7 C (98 F) 09/11/2025 8:33 AM EST Respiratory Rate - - Oxygen Saturation 96% 09/11/2025 8:33 AM EST Inhaled Oxygen Concentration - - Weight 78 kg (171 lb 15.3 oz) 09/11/2025 8:33 AM EST Height 160 cm (5' 3 ) 09/11/2025 8:33 AM EST Body Mass Index 30.46 09/11/2025 8:33 AM EST documented in this encounter Functional Status * Over the past 2 weeks, how often have you been bothered by any of the following problems? Question Answer Date of Assessment Author Little interest or pleasure in doing things Not at all 09/11/2025 8:38 AM EST Shanel Jimenez Feeling down, depressed, or hopeless Not at all 05/2025 8:38 AM EST Shanel Jimenez Patient Health Questionnaire-2 Score 0 05/2025 8:38 AM EST Shanel Jimenez * Question Answer Date of Assessment Author Trouble falling or staying a sleep, or sleeping too much Not at all 09/11/2025 8:38 AM EST Shanel Jimenez Feeling tired or having little energy Not at all 05/2025 8:38 AM EST Shanel Jimenez Poor appetite or overeating Not at all 09/11/2025 8: 38 AM EST Shanel Jimenez Feeling bad about yourself - or that you are a failure or have let yourself or your family down Not at all 09/11/2025 8:38 AM Shanel Eastman Trouble concentrating on thi ngs, such as reading the newspaper or watching television Not at all 09/11/2025 8:38 AM EST Shanel Jimenez Moving or speaking so slowly that other people could have noticed? Or the opposite - being so fidgety or restless that you have been moving around a lot more than usual. Not at all 09/11/2025 8:38 AM Shanel Eastman Thoughts that you would be b ron off or hurting yourself in some way Not at all 09/11/2025 8:38 AM Shanel Eastman Patient Health Questionnaire-9 Score 0 05/2025 8:38 AM EST Shanel Jimenez * Calculated C-SSRS Risk Score (Lifetime/Recent) Answer Date of Assessment Author No Risk Indicated 09/11/2025 8:38 AM Shanel Eastman * How difficult have these problems made it for you to do your work, take care of things at home, or get along with other people? Answer Date of Assessment Author Not difficult at all 09/11/2025 8:38 AM EST Shanel Argueta * Question Answer Date of Assessment Author 1. Wish to be (Past 1 Month) No 025 8:38 AM EST Shanel Jimenez 2. Non-Specific Active Suici carlitos Thoughts (Past 1 Month) No 09/11/2025 8:38 AM EST Shanel Jimenez 6. Suicidal Behavior (Lifetime) No 8:38 AM Shanel Eastman documented as of this encounter Miscellaneous Notes * Clinician Note - Shanel Jimenez - 09/11/2025 8:20 AM EST Fall risk fall risk protocol implemented * Progress Notes - Janna Arthur APRN - 09/11/2025 8:20 AM EST Images from the original note were not included. Subsequent Medicare Wellness Visit The ABC's of the Annual Wellness Visit Chief Complaint Patient presents with Medicare Annual Wellness Visit Initial Health risk assessment completed and reviewed with the patient. HPI: Josey Morales is a 70 y.o. female who presents for a Subsequent Medicare Wellness Visit. Recent Hospitalizations: Hospitalization Have you been hospitalized since we last saw you?: No Current Medical Providers: Patient Care Team: Janna Arthur APRN as PCP - General (Family Medicine) Nuria Malone MD as Consulting Physician (Hematology and Oncology) Seen Outside Provider? Have you seen a health care provider outside our clinic since we last saw you?: (!) Yes Date of Visit:: 07/27/25 Provider Name: Dr. Jason Liz Health Habits and Functional and Cognitive Screening: Health Habits (AWV) In general, how would you say your health is?: Good In general, how satisfied are you with your life?: Very Satisfied In the past 7 days, how much pain have you felt?: (!) Some In the past 7 days have you had any problems staying or falling asleep?: No In the past 7 days have you had problems with constipation?: No Do you usually exercise at least 30 minutes or more, 4 days a week?: (!) No Do you usually eat a diet that has at least 4 servings of fruit & vegetables, includes whole grain & fiber and avoids other than occasional servings of high fat foods?: Yes How would you describe the condition of your mouth and teeth (including false teeth or dentures)?: Good Do you always fasten your seat belt when you are in the car?: Yes Memory Do you or any of your friends or family members have any concerns about your memory?: No Six-Item Cognitive Screening Did the patient correctly repeat all three words: Yes What year is this?: Correct What month is this?: Correct What is the day of the week?: Correct What were the three objects I asked you to remember? Apple: Correct Table: (!) Incorrect Gayathri: Correct Total Total Incorrect: 1 Does the patient have evidence of cognitive impairment? No Activities Daily Living: Activities of Daily Living Screening In the past 7 days, did you need help from others to perform everyday activities such as eating, getting dressed, grooming, bathing, walking, or using the toilet?: No In the past 7 days, did you need help from others to take care of things such as laundry and housekeeping, banking, shopping, using the telephone, food preparation, transportation, or taking your ownmedications?: No Hearing and Visual Acuity: Hearing Do you have any problems with your hearing?: No Hearing/Eye Exam No results found. Home Risk Assessment: Home Risk Assessment AWV Have you fallen in the last year?: No falls in the last year or 1 fall with no injury in the last year Does your home have rugs in the hallway?: No Does your home have grab bars in the bathroom?: Yes Does you home have handrails on the stairs?: Yes Does your home have good lighting?: Yes Do you know where to locate and how to properly use a first aid kit and fire extinguisher in case of an emergency?: Yes Compared to one year ago, the patient feels her physical health is unchanged and her mental health is unchanged. Depression Screen: Over the past 2 weeks, how often have you been bothered by any of the following problems? Little interest or pleasure in doing things: Not at all Feeling down, depressed, or hopeless: Not at all Patient Health Questionnaire-2 Score: 0 Over the past 2 weeks, how often have you been bothered by any of the following problems? Trouble falling or staying asleep, or sleeping too much: Not at all Feeling tired or having little energy: Not at all Poor appetite or overeating: Not at all Feeling bad about yourself - or that you are a failure or have let yourself or your family down: Not at all Trouble concentrating on things, such as reading the newspaper or watching television: Not at all Moving or speaking so slowly that other people could have noticed? Or the opposite - being so fidgety or restless that you have been moving around a lot more than usual.: Not at all Thoughts that you would be better off or hurting yourself in some way: Not at all Patient Health Questionnaire-9 Score: 0 LIA-7 Feeling Nervous, Anxious, or on Edge: Not at all Not Being Able to Stop or Control Worrying: Not at all Worrying too Much About Different Things: Not at all Trouble Relaxing: Not at all Being so Restless That it is Hard to Sit Still: Not at all Becoming Easily Annoyed or Irritable: Not at all Feeling Afraid as if Something Awful Might Happen: Not at all LIA-7 Total Score: 0 If you checked off any problems, how difficult have these problems made it for you to do your work,take care of things at home, or get along with other people?: Not difficult at all Past Medical/Family/Social History: Allergies Codeine Current Medications[1] Medical/Surgical/Social/Family History I have reviewed and updated the patient history. Problem List[2] Objective ROS: Review of Systems Vitals 08/29/2023 10:49 AM 02/27/2024 10:35 AM 08/08/2024 7:58 AM 09/01/2024 1:28 PM 09/01/2024 2:14 PM 04/14/2025 3:12 PM 09/11/2025 8:33 AM Vitals Systolic 186 160 136 180 127 138 Diastolic 88 79 86 90 87 80 Heart Rate 90 58 68 77 70 74 Temp 36.6 C 36.3 C 36.7 C 36.6 C 36.7 C Resp 16 16 Height (cm) 160 cm 160 cm 160 cm 160 cm 160 cm Weight (kg) 83.915 kg 82.6 kg 81.647 kg 79.379 kg 81.5 kg 77.3 kg 78 kg BMI 32.77 kg/m2 32.26 kg/m2 31.89 kg/m2 31 kg/m2 31.83 kg/m2 30.19 kg/m2 30.46 kg/m2 BSA (m2) 1.93 m2 1.92 m2 1.9 m2 1.88 m2 1.9 m2 1.85 m2 1.86 m2 Visit Report Report Report Report Report Report Report Report The patient's weight is above average. The patient received The patient received dietary education because they have an above normal BMI. and The patient received exercise education because they havean above normal BMI. because they have an above normal BMI. Recent Lab Results: Glucose, Plasma (mg/dL) Date Value 08/07/2023 109 (H) 05/15/2022 133 (H) 12/01/2020 76 Hemoglobin A1c (%) Date Value 05/15/2022 5.4 12/17/2018 5.0 05/09/2017 6.1 (H) BUN, Plasma (mg/dL) Date Value 08/07/2023 17 05/15/2022 21 12/01/2020 17 Creatinine, Plasma (mg/dL) Date Value 08/07/2023 0.65 05/15/2022 0.75 12/01/2020 0.59 (L) Cholesterol, Plasma (mg/dL) Date Value 08/07/2023 223 (H) 05/15/2022 223 (H) 12/17/2018 194 Triglycerides, Plasma (mg/dL) Date Value 08/07/2023 96 05/15/2022 173 (H) 12/17/2018 73 HDL (mg/dL) Date Value 08/07/2023 51 05/15/2022 52 12/17/2018 45 Assessment/Plan Age-appropriate Screening Schedule: Refer to the list below for future screening recommendations based on patient's age, sex and/or medical conditions. Orders for these recommended tests are listed in the plan section. The patient has been provided with a written plan. Health Maintenance Topic Date Due [facility]-Hepatitis C Screening Never done [facility]- SDOH Screenings Never done [facility]-Pneumococcal Vaccine: 50+ Years (1 of 2 - PCV) Never done [facility]-Zoster Vaccines (1 of 2) Never done [facility]-DTaP,Tdap,and Td Vaccines (1 - Tdap) 01/07/1997 [facility]-Colorectal Cancer Screening Never done [facility]-Influenza Vaccine (1) Never done [id number] Vaccine (3 - 2024- season) 2025 [facility]-Medicare Annual Wellness (AWV) 08/08/2025 [facility]-Depression Screening 08/08/2025 [facility]-Bone Density Scan 09/01/2026 [facility]-RSV Vaccine: 60+ Years or (1 - 1-dose 75+ series) 2028 [facility]-Obesity Intervention Completed [facility]-HIB Vaccines Aged Out [facility]-IPV Vaccines Aged Out [facility]-Hepatitis A Vaccines Aged Out [facility]-Rotavirus Vaccines Aged Out HPV Vaccines Aged Out [facility]-Diabetes: Hemoglobin A1C Discontinued The patient was counseled on the importance of the following screenings: Cardiovascular Risk Diabetes Colorectal Cancer Breast Cancer Lung Cancer Osteoporosis Cervical Cancer [facility] Preventative Services Quick Reference Medicare Risks and Personalized Health Plan co-morbidities The above risks/problems have been discussed with the patient. Pertinent information has been shared with the patient in the After Visit Summary. Follow up plans and orders are seen below in the Assessment/Plan Section. Advanced Care Planning: has NO advanced directive - not interested in additional information Problem List Items Addressed This Visit None Visit Diagnoses Routine general medical examination at health care facility - Primary Health Maintenance Due Topic Date Due [facility]-Hepatitis C Screening Never done [facility]- SDOH Screenings Never done [facility]-Pneumococcal Vaccine: 50+ Years (1 of 2 - PCV) Never done [facility]-Zoster Vaccines (1 of 2) Never done [facility]-DTaP,Tdap,and Td Vaccines (1 - Tdap) 01/07/1997 [facility]-Colorectal Cancer Screening Never done [facility]-Influenza Vaccine (1) Never done [id number] Vaccine (3 - season) 2025 [facility]-Medicare Annual Wellness (AWV) 08/08/2025 [facility]-Depression Screening 08/08/2025 An After Visit Summary and PPPS with all of these plans were given to the patient. Follow Up: No follow-ups on file. Office Progress Note Subjective Josey Morales is a 70 y.o. female who presents for Medicare Annual Wellness Visit Initial. History of Present Illness The patient is a 70-year-old female who presents for a Medicare wellness visit and follow-up on chronic conditions. She reports no changes in her vision or hearing and continues to use corrective glasses. Regular dental check-ups are maintained annually. Her diet includes a variety of fruits, vegetables, and protein sources such as meat, eggs, beans, and cheese. She attempts to stay active but experiences hip pain during ambulation. Influenza and pneumonia vaccinations have been declined. An upcoming mammogramis scheduled, and colonoscopy or Cologuard testing has been declined. A recent bone density test was completed. Blood glucose levels are monitored, and sugary foods and drinks are avoided, opting fordiet soda instead. No allergies, choking incidents, or difficulty swallowing are reported. Vertigo o ccurs when lying flat on her back, inducing nausea. Easy bruising is noted. Driving is continued but preferred to be minimized due to difficulty entering and exiting her vehicle. Hip injections are received every 3 months, which have proven beneficial. Bone spurs and arthritis are present in both hips. The possibility of hip replacement surgery has been discussed. Lisinopril is continued for hypertension management. Albuterol is used as needed for her nebulizer, and a refill is requested. No asthma, sinus, or allergy symptoms have been experienced this fall. Symbicort or Breo Ellipta inhalers are continued. Mild heartburn is experienced typically in the mornings despite taking prescription omeprazole. Food is avoided after 8 PM, and soft drink consumption is limited. Excessive tea consumption is avoideddue to a history of kidney stones. Heartburn typically occurs around 7:30 AM. Fluoxetine is continued for mood regulation, which is reported as effective. She is under the care of an oncologist, with a scheduled appointment on 09/22/2025, marking her 5-year follow-up. Mammograms will continue biannually. Anastrozole has been taken for 5 years. Social History: Hobbies: Visiting with [employer] Diet: Rich in fruits, vegetables, and protein sources such as meat, eggs, beans, and cheese Coffee/Tea/Caffeine-containing Drinks: Limited tea consumption due to kidney stones Sleep: Typically wakes up around 7:30 AM PAST SURGICAL HISTORY: Hip injections every 3 months History of kidney stones FAMILY HISTORY She reports no family history of arthritis or cancer. The following sections have been reviewed and updated during this encounter: Tobacco Allergies Meds Objective Blood pressure 138/80, pulse 74, temperature 36.7 ??C (98 ??F), temperature source Oral, height 1.6m (5' 3 ), weight 78 kg (171 lb 15.3 oz), SpO2 96%. Body mass index is 30.46 kg/m??. Physical Exam Vitals reviewed. Constitutional: Appearance: Normal appearance. HENT: Head: Normocephalic. Right Ear: Tympanic membrane, ear canal and external ear normal. Left Ear: Tympanic membrane, ear canal and external ear normal. Nose: Nose normal. Mouth/Throat: Mouth: Mucous membranes are moist. Pharynx: Oropharynx is clear. Eyes: Conjunctiva/sclera: Conjunctivae normal. Pupils: Pupils are equal, round, and reactive to light. Cardiovascular: Rate and Rhythm: Normal rate and regular rhythm. Pulses: Normal pulses. Heart sounds: Normal heart sounds. Pulmonary: Effort: Pulmonary effort is normal. Breath sounds: Normal breath sounds. Abdominal: Palpations: Abdomen is soft. Musculoskeletal: General: Normal range of motion. Cervical back: Normal range of motion. Skin: General: Skin is warm and dry. Neurological: Mental Status: She is alert and oriented to person, place, and time. Psychiatric: Mood and Affect: Mood normal. Behavior: Behavior normal. Thought Content: Thought content normal. Judgment: Judgment normal. Assessment/Plan Diagnoses and all orders for this visit: Routine general medical examination at [facility] Assessment & Plan 1. Medicare wellness visit: - Blood pressure is well-regulated with the current medication regimen. - Recent lab results indicate normal kidney function, slightly elevated glucose levels, normal liver function, and a normal blood count. - A comprehensive lab workup will be conducted today to assess her overall health status. - Advised to elevate the head of her bed to alleviate heartburn symptoms. 2. Hip arthritis: - Receives hip injections every 3 months, which help alleviate her symptoms. - Advised to consider hip replacement surgery if the injections cease to provide relief. 3. Hypertension: - Currently taking lisinopril, which is effectively managing her blood pressure. - Will continue with this medication. 4. Asthma: - Has not experienced any asthma or allergy symptoms this fall. - A prescription for albuterol has been provided for use as needed with her nebulizer. 5. Gastroesophageal reflux disease (GERD): - Experiences heartburn primarily in the mornings. - Currently taking omeprazole (Prilosec generic) and has been advised to avoid eating after 8 PM and restrict soft drinks. - Advised to elevate the head of her bed to alleviate symptoms. 6. Mood disorder: - Currently taking fluoxetine for mood management, which has been effective. - No changes to her medication are necessary at this time. Verbal consent was obtained to use ambient listening technology to assist in the documentation of the encounter: yes [1] Current Outpatient Medications: albuterol 1.25 MG/3ML nebulizer solution, Take 3 mL (1.25 mg) by nebulization every 4 (four) hours if needed for wheezing., Disp: 360 mL, Rfl: 11 albuterol 108 (90 Base) MCG/ACT inhaler, Inhale 2 puffs 4 (four) times a day if needed for wheezing., Disp: 18 g, Rfl: 11 anastrozole (Arimidex) 1 MG chemo tablet, TAKE ONE (1) TABLET BY MOUTH ONCE DAILY, Disp: 30 tablet,Rfl: 0 celecoxib (CeleBREX) 200 MG capsule, Take 1 capsule (200 mg) by mouth 1 (one) time each day., Disp:, Rfl: Cranberry (AZO Cranberry Gummies) 250 MG chewable tablet, 2 tab(s) orally once a day, Disp: , Rfl: FLUoxetine (PROzac) 20 MG capsule, Take 1 capsule by mouth daily., Disp: 90 capsule, Rfl: 0 Fluticasone Furoate-Vilanterol (Breo Ellipta) 100-25 MCG/ACT aerosol powder , Inhale 1 Inhalation 1(one) time each day., Disp: 60 each, Rfl: 3 lisinopril 20 MG tablet, Take 1 tablet by mouth daily., Disp: 90 tablet, Rfl: 0 omeprazole (PriLOSEC) [address] capsule, Take 1 capsule by mouth daily. Do not crush or chew., Disp:90 capsule, Rfl: 0 Spacer/Aero-Holding Chambers (E-Z Spacer) inhaler, use as directed with deanna, Disp: , Rfl: tiotropium (Spiriva HandiHaler) 18 MCG inhalation capsule, Place 1 capsule (18 mcg) into inhaler and inhale 1 (one) time each day., Disp: 30 capsule, Rfl: 11 [2] Patient Active Problem List Diagnosis Malignant neoplasm of right breast in female, estrogen receptor positive Allergic rhinitis Arthralgia of multiple sites, bilateral Essential (primary) hypertension Chronic obstructive pulmonary disease Depression Esophageal reflux Hyperlipidemia Obesity (BMI 30-39.9) Sleep disorder Major depressive disorder, recurrent, moderate (CMS/HCC) Kidney stone documented in this encounter Plan of Treatment Upcoming Encounters Date Type Department Care Team (Late st Contact Info) Description 10/12/2026 12:30 PM EST Appointment [facility] [address] [place] [address] 10/12/2026 1:30 PM EST Office Visit [facility] [address] [facility] [place] [address] Megan Bonds, KEY WORKER [address] [facility] [address] [place] [address] documented as of this encounter Visit Diagnoses Diagnosis Routine general medical examination at health care facility- Primary Routine general medical examination at a health care facility Essential (primary) hypertension Unspecified essential hypertension Chronic obstructive pulmonary disease, unspecified COPD type ([facility]/HCC) Anxiety and depression Gastroesophageal reflux disease without esophagitis Esophageal reflux documented in this encounter Additional Health Concerns Assessment Noted Time PHQ-9 Depression Total Score: 0 09/11/20 25 8:38 AM EST A fall risk assessment has been complete d for the patient 09/11/2025 8:39 AM EST A Body Mass Index follow-up plan has been documented for the patient 09/11/2025 9:23 AM EST documented as of this encounter Care Teams Manager Inside Relationship Specialty Start Date End Date Janna Arthur, [employer] WORK[employer] [address] [place] [phone] PCP - General Family Medicine 08/10/23 Nuria Malone MD [address] [facility] [address] [place] [phone] Consulting Physician Hematology and Oncology 08/23/21 documented as of this encounter
--- OUTSIDE RECORDS SUMMARY | 2025-09-17 14:40 | XMS_ITS | Encounter Summary ---
Author Organization [facility] Address [address] [place] [address] Care Team Providers Care Truck Assembler Name Role Phone Nuria Malone MD Unavailable [phone] Janna Arthur APRN Primary Care Provider [phone] Reason for Referral * Consultation (Routine) - Authorized Specialty Diagnoses / Procedures Referred By Adam espinoza Referred To Contact Cardiology Diagnoses Syncope, unspecified syncope type Janna Arthur, LAKESHA [address] [place] [address] Phone: tel: fax: Referral ID Status Reason Start Date Expiration Date Visits Requested Visits Authorized [id number] Authorized Specialty Services Required 5 03/19/2027 1 1 * Consultation (Routine) - Authorized Specialty Diagnoses / Procedures Referred By Adam espinoza Referred To Contact Neurology Diagnoses Syncope, unspecified syncope type Dizziness and gidd[place] [address] Phone: tel: fax: Referral ID Status Reason Start Date Expiration Date Visits Requested Visits Authorized [id number] Authorized Specialty Services Required 5 03/19/2027 1 1 Reason for Visit * Reason Comments Hospital Follow Up Hospital follow up. Syncope episode Sunday that sent her to the ER in [place]. Pt is still having issues with dizziness and lightheadedness. Was scheduled a follow up with cardiology. Needs referral for neurology Encounter Details Date Type Department Care Team (Late st Contact Info) Description 09/17/2025 2:40 PM EST Office Visit [facility] [address] [place] [address] Janna Arthur, CABLE TECHNICIAN [address] [place] [address] Syncope, unspecified [...] any time in the past 12 m [facility], were you homeless or living in a assisted (including now)? No 09/11/2025 [facility] Utilities Answer Date Recorded In the [...] documented in this encounter Functional Status * Calculated C-SSRS Risk Score (Lifetime/Recent) Answer Date of Assessment Author No Risk Indicated 09/17/2025 2:47 PM EST Brandy Amanda * Question Answer Date of Assessment Author 1. Wish to be (Past 1 Month) No 025 2:47 PM EST Brandy Amanda 2. Non-Specific Active Suici carlitos Thoughts (Past 1 Month) No 09/17/2025 2:47 PM EST Artem Amanda 6. Suicidal Behavior (Lifetime) No 2:47 PM EST Brandy Amanda documented as of this encounter Miscellaneous Notes * Progress Notes - Janna Arthur, LAKESHA - 09/17/2025 2:40 PM EST Office Progress Note Subjective Josey Morales is a 70 y.o. female who presents for Hospital Follow Up (Hospital follow up. Syncope episode Sunday that sent her to the ER in [place]. Pt is still having issues with dizziness and lightheadedness. Was scheduled a follow up with cardiology. Needs referral for neurology ). History of Present Illness The patient is a 70-year-old female who presents for follow-up on a recent ER visit to [facility] for syncope and dizziness. She experienced an [...] arteries. She was advised to consult a machine folder hannah neurologist. Diet: Consumes toast or oatmeal [...] blood clots. - A referral to a machine folder and neurologist will be made to exclude [...] Breast Care Center [facility] Fausto [address] [address] [place] [address] 10/12/2026 1:30 PM EST Office Visit [facility] [address] [place] [address] Megan Bonds, CABLE TECHNICIAN [address] [facility] Nella [address] [facility] [address] [place] [address] Scheduled Referrals Name Type Priority [...] documented as of this encounter Care Teams Truck Assembler Relationship Specialty Start Date End Date Janna Arthur, CABLE TECHNICIAN [address] [place] [address] PCP - General Family Medicine 08/10/23 Nuria Malone MD [address] Nella [address]gs [facility] [address] [place] [address] Consulting Physician Hematology and Oncology 08/23/21 documented as of this encounter
--- OUTSIDE RECORDS SUMMARY | 2025-09-22 13:23 | XMS_ITS | Encounter Summary ---
Author Organization [facility] Address [address] [place] [address] Care Team Providers Care Service Delivery Manager Name Role Phone Nuria Malone MD Unavailable [phone] Janna Arthur APRN Primary Care Provider [phone] Encounter Details Date Type Department Care Team (Latest Contact Info) Description 09/22/2025 1:23 PM EST - 09/22/2025 11:59 PM [facility] Hospital Encounter [facility] Breast Care Center Comprehensive [facility] Center [address] [phone] Screening mammogram, encounter for Discharge Disposition: Home [...] any time in the past 12 m [facility], were you homeless or living in a care home (including now)? No 09/11/2025 [facility] Utilities Answer Date Recorded In the [...] pleasure in doing things Not at all 09/22/2025 3:03 PM EST Sydnee Braga Feeling down, depressed, or hopeless Not at all 09/22/2025 3:03 PM EST Omi Sydnee Patient Health Questionnaire -2 Score 0 09/22/2025 3:03 PM EST Sydnee Braga * Question Answer Date of Assessment Author Trouble falling or staying a sleep, or sleeping too much Not at all 09/22/2025 3:03 PM EST Omi Sydnee Feeling tired or having zoila le energy Not at all 09/22/2025 3:03 PM EST Omi Sydnee Poor appetite or overeating Not at all 09/22/2025 3: 03 PM EST Sydnee Braga Feeling bad about yourself - or that you are a failure or have let yourself or your family down Not at all 09/22/2025 3:03 PM EST Adrian Bragaayle Trouble concentrating on thi ngs, such as reading the newspaper or watching television Not at all 09/22/2025 3:03 PM Sydnee Cooley Moving or speaking so slowly that other people could have noticed? Or the opposite - being so fidgety or restless that you have been moving around a lot more than usual. Not at all 09/22/2025 3:03 PM Sydnee Cooley Thoughts that you would be b ron off or hurting yourself in some way Not at all 09/22/2025 3:03 PM Sydnee Cooley Patient Health Questionnaire -9 Score 0 09/22/2025 3:03 PM Sydnee Cooley * How difficult have these problems made it for you to do your work, take care of things at home, or get along with other people? Answer Date of Assessment Author Not difficult at all 09/22/2025 3:03 PM Sydnee Brewer documented as of this encounter Medications at Time of Discharge [...] (E-Z Spacer) inhaler use as directed with deanna 7 tiotropium (Spiriva HandiHaler) 18 MCG inhalation [...] Info) Description 10/12/2026 12:30 PM EST Appointment [facility] Breast Care [place] [facility] [address] [address] 10/12/2026 1:30 PM EST Office Visit [facility] [address] [facility], 2nd [place] [address] Megan Bonds, ADMINISTRATION MANAGER [address] [facility] Nella [address] [place] [address] documented as of this encounter Procedures Procedure [...] core-[facility]); right mastectomy, 08/2020; hysterectomy (Hysterectomy from [facility]); and hysterectomy (Hysterectomy from [facility]). Medical history includes breast cancer. COMPARISON STUDIES: Compared to: 08/23/2021 Mammography Breast Diagnostic Tomosynthesis Left at [facility] 08/28/2022 Mammography Breast Diagnostic Tomosynthesis Left at [facility] 08/29/2023 Mammography Breast Diagnostic Tomosynthesis Left at [facility] 09/01/2024 Mammography Breast Diagnostic Tomosynthesis Left at [facility] BREAST COMPOSITION: The breasts are [...] documented as of this encounter Care Teams Service Delivery Manager Relationship Specialty Start Date End Date Janna Arthur APRN [address] [place] [address] PCP - General Family Medicine 08/10/23 Nuria Malone MD [address] [facility] [address] [address] Consulting Physician Hematology and Oncology 08/23/21 documented as of this encounter
--- OUTSIDE RECORDS SUMMARY | 2025-09-22 15:00 | XMS_ITS | Encounter Summary ---
Author Organization [facility] Address [address] [place] [address] Care Team Providers Care Flex O Writer Operator Name Role Phone Nuria Malone MD Unavailable [phone] Janna Arthur APRN Primary Care Provider [phone] Encounter Details Date Type Department Care Team ([facility] st Contact Info) Description 09/22/2025 3:00 PM EST Office Visit [facility] Breast [facility] Center [address] [place] [address] Lynda Espino, ALBA [address] [place] [phone] Malignant neoplasm of right breast in female, [...] any time in the past 12 m [facility], were you homeless or living in a nursing home (including now)? No 09/11/2025 [facility] Utilities Answer Date Recorded In the past 12 months has th e [employer], gas, oil, or water company threatened to [...] all 09/22/2025 3:03 PM EST Sydnee Braga Patient Health Questionnaire -2 Score 0 09/22/2025 3:03 PM EST Sydnee Braga * Question Answer Date of Assessment Author Trouble falling or staying a sleep, or sleeping too much Not at all 09/22/2025 3:03 PM EST Sydnee Braga Feeling tired or having zoila le energy Not at all 09/22/2025 3:03 PM EST Sydnee Braga Poor appetite or overeating Not at all 09/22/2025 3: 03 PM MARGARITO Braga Sydnee Feeling bad about yourself - or that you are a failure or have let yourself or your family down Not at all 09/22/2025 3:03 PM MARGARITO Braga, A bigayle Trouble concentrating on thi [...] way Not at all 09/22/2025 3:03 PM MARGARITO Braga Sydnee Patient Health Questionnaire -9 Score 0 09/22/2025 3:03 PM Sydnee Cooely * How difficult have these problems made it for you to do your work, take care of things at home, or get along with other people? Answer Date of Assessment Author Not difficult at all 09/22/2025 3:03 PM Sydnee Brewer documented as of this encounter Miscellaneous Notes [...] pN0(sn), cM0) right grade 2 ER 100%, IL 100%, HER2 negative IHC 1+ invasive ductal [...] mass on 08/02/20 showed grade 1 IDC ER/IL 100%, HER2 negative by IHC 1+. 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 Last menstrual period was 1976 after hysterectomy. Ovaries intact. She is with her 1st full-term at 17. She did not breast feed. She took oral contraceptives for 5 years. There is no history of infertility treatments. She took Premarin 15 years discontinuing approximately 10 years ago. Social History: She is and lives in [place]. She previously smoked 1 pack per day for 40 years but quit 12 years ago. She rarely drinks alcohol. 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 Family History: There is no family history [...] Stage IA (pT2, pN0(sn), cM0, G2, ER+, IL+, HER2-, Oncotype DX score: 5) - Signed by Nuria Malone MD on 08/24/2021 Oncology Problem List: 1. Stage IIA (pT2 pN0 M0) right grade 2 ER 100%, IL 100% HER2 negative IDC with micropapillary features [...] further episodes have occurred. Follow-up with a ripsaw grader and a neurologist is recommended. She is [...] is encouraged to contact our office through [employer] or at the number provided for any [...] 12:30 PM EST Appointment [facility] [place] [facility] [address] [place] [address] 10/12/2026 1:30 PM EST Office Visit [facility] [address] [facility]nd [place] [address] Megan Bonds APRN [address] [facility] [address] [facility] [address] [place] [address] Scheduled Orders Name Type Priority Associated Diagnoses [...] documented as of this encounter Care Teams Flex O Writer Operator Relationship Specialty Start Date End Date Janna Arthur APRN [facility] [place] [phone] PCP - General Family Medicine 08/10/23 Nuria Malone MD [address] [address] Consulting Physician Hematology and Oncology 08/23/21 documented as of this encounter
--- OUTSIDE RECORDS SUMMARY | 2025-10-07 08:37 | XMS_ITS | Encounter Summary ---
Author Organization [facility] Address [address] [place] [address] Care Team Providers Care Analysis Intern Name Role Phone Nuria Malone MD Unavailable [phone] Janna Arthur APRN Primary Care Provider [phone] Reason for Visit * Reason Comments Med Refill Encounter Details Date Type Department Care Team (Late st Contact Info) Description 09/03/2025 Refill [facility] [address] [place] [address] Janna Arthur APRN [address] [place] [address] Gastroesophageal reflux disease without esophagitis; [...] place to sleep or slept in a mcc (including now)? No 08/04/2024 Utilities Answer Date [...] protocol. Appt requested to be scheduled by [facility]. Patient must schedule an appointment and be seen in clinic for additional refills. documented in this encounter Plan of Treatment Upcoming Encounters Date Type Department Care Team (Late st Contact Info) Description 10/12/2026 12:30 PM EST Appointment [facility] [place] [facility] [address] [place] [address] 10/12/2026 1:30 PM EST Office Visit [facility] Breast [facility] [address] [facility], [address] [place] [address] Megan Bonds, CHOPPED STRAND OPERATOR [address] [facility] [address] [place] [address] documented as of this encounter [...] documented as of this encounter Care Teams Analysis Intern Relationship Specialty Start Date End Date Janna Arthur, CHOPPED STRAND OPERATOR [address] [place] [phone] PCP - General Family Medicine 08/10/23 Nuria Malone MD [address] [facility] [address] [phone] Consulting Physician Hematology and Oncology 08/23/21 documented as of this encounter
--- OUTSIDE RECORDS SUMMARY | 2025-10-07 08:37 | XMS_ITS | Encounter Summary ---
Author Organization [facility] Address [address] [place] [address] Care Team Providers Care Health Care Aide Name Role Phone Nuria Malone MD Unavailable [phone] Janna Arthur HOTEL RESERVATIONIST Primary Care Provider [phone] Reason for Visit * Reason Onset Date Comments HCN - Patient Message 09/15/2025 Encounter Details Date Type Department Care Team (Late st Contact Info) Description 09/15/2025 Telephone [facility] [address] [place] [address] Janna Arthur APRN [address] [place] [address] HCN - Patient Message Social History Tobacco Use Types Packs/Day Years [...] any time in the past 12 m [facility], were you homeless or living in a alf (including now)? No 09/11/2025 [facility] Utilities Answer Date Recorded In the past 12 months has e electric, gas, oil, or water company [...] as of this encounter Functional Status * Calculated C-SSRS Risk Score (Lifetime/Recent) Answer Date of Assessment Author No Risk Indicated 09/17/2025 2:47 PM Brandy Oneal * Question Answer Date of Assessment Author 1. Wish to be (Past 1 Month) No 025 2:47 PM Brandy Oneal 2. Non-Specific Active Suici carlitos Thoughts (Past 1 Month) No 09/17/2025 2:47 PM Artem Oneal 6. Suicidal Behavior (Lifetime) No 2:47 PM Brandy Oneal documented as of this encounter Miscellaneous Notes * Telephone Encounter - Alison Argueta - 09/15/2025 2:31 PM EST Appointment scheduled for ER followup, records request faxed to [facility] * Telephone Encounter - Adela Yang - 09/15/2025 1:50 PM EST Clinical Concern/Question Reason for Call: Pt calling because she fainted over the weekend and was taken to the ED in [place] and pt was recommended to see a neurologist. Pt is requesting a referral and call back. Please advise. Best contact number: [phone] (home) Optimal time of day to reach caller: ANYTIME Additional comments/information from caller: None Note: Please do not reply to this message. Follow-up communication and further actions as a result of this message need to be communicated with the patient directly, if the patient is not active onMyChart. If the patient is active on MyChart, they will receive notification of the communication/outcome via MyChart. documented in this encounter Plan of Treatment Upcoming Encounters Date Type Department Care Team ([facility] st Contact Info) Description 10/12/2026 12:30 PM EST Appointment [facility] [place] [address] [address] [facility] [address] [place] [address] 10/12/2026 1:30 PM EST Office Visit [facility] Breast [facility] [address] [facility]nd [place] [address] Megan Bonds, HOTEL RESERVATIONIST [address] [facility] [address] [place] [address] documented as of this encounter [...] documented as of this encounter Care Teams Health Care Aide Relationship Specialty Start Date End Date Janna Arthur, HOTEL RESERVATIONIST [address] [place] [address] PCP - General Family Medicine 08/10/23 Nuria Malone MD [address] [facility] Nella [address] [place] [address] Consulting Physician Hematology and Oncology 08/23/21 documented as of this encounter
--- OUTSIDE RECORDS SUMMARY | 2025-10-07 08:37 | XMS_ITS | Encounter Summary ---
Author Organization [facility] Address [address] [place] [address] Care Team Providers Care Auction Clerk Name Role Phone Nuria Malone MD Unavailable [phone] Janna Arthur APRN Primary Care Provider [phone] Encounter Details Date Type Department Care Team (Late st Contact Info) Description 09/07/2025 [facility] [address] [place] [address] Janna Arthur APRN [address] [place] [address] Anxiety and depression; Essential (primary) [...] place to sleep or slept in a custodial (including now)? No 08/04/2024 Utilities Answer Date [...] 12:30 PM EST Appointment [facility] [place] [address] [address] [facility] [address] [place] [address] 10/12/2026 1:30 PM EST Office Visit [facility] [address] [facility], 2nd [place] [address] Megan Bonds, FARMWORKER FRUIT [address] [facility] Nella Griggs [address] [address] documented as of this encounter Visit Diagnoses [...] documented as of this encounter Care Teams Auction Clerk Relationship Specialty Start Date End Date Janna Arthur, FARMWORKER FRUIT [address] [place] [phone] PCP - General Family Medicine 08/10/23 Nuria Malone MD [address] N[address] [facility] [address] [place] [address] Consulting Physician Hematology and Oncology 08/23/21 documented as of this encounter
--- OUTSIDE RECORDS SUMMARY | 2025-10-07 08:37 | XMS_ITS | Encounter Summary ---
Author Organization [facility] Address [address] [place] [address] Care Team Providers Care Gear Cutting Machine Operator Name Role Phone Nuria Malone MD Unavailable [phone] Janna Arthur APRN Primary Care Provider Reason for Visit * Reason Comments Med Refill Encounter Details Date Type Department Care Team (Late st Contact Info) Description 09/03/2025 Refill [facility] [address] [facility], [address]nd [place] [address] Nuria Malone MD 800 [facility] [address] [place] [address] Malignant neoplasm of right breast [...] place to sleep or slept in a mcfp (including now)? No 08/04/2024 Utilities Answer Date [...] 12:30 PM EST Appointment [facility] [place] [address] [address] [facility] [address] [place] [address] 10/12/2026 1:30 PM EST Office Visit [facility] [address] [facility], [address]nd [place] [address] Megan Bonds, SCHOOL EXAMINER 800 [facility] [address] [place] [address] documented as of this encounter [...] documented as of this encounter Care Teams Gear Cutting Machine Operator Relationship Specialty Start Date End Date Janna Arthur, SCHOOL EXAMINER [address] [place] [phone] PCP - General Family Medicine 08/10/23 Nuria Malone MD [address] [facility] Nella Griggs [facility] [address] [place] [address] Consulting Physician Hematology and Oncology 08/23/21 documented as of this encounter
--- OUTSIDE RECORDS SUMMARY | 2025-10-07 08:38 | XMS_ITS | Encounter Summary ---
Author Organization [facility] Address [address] [place] [address] Care Team Providers Care Binding Folder Machine Name Role Phone Nuria Malone MD Unavailable [phone] Janna Arthur APRN Primary Care Provider [phone] Reason for Visit * Reason Comments Med Refill Encounter Details Date Type Department Care Team (Late st Contact Info) Description 08/06/2025 Refill [facility] [address] [facility], [address]nd [place] [address] uNria Malone MD 800 [facility] [address] [place] [address] Malignant neoplasm of right breast in female, estrogen receptor positive, unspecified site of breast (Primary Dx) Social History Tobacco Use Types Packs/Day Years Used Date Smoking Tobacco: Former Cigarettes 8 - 2007 Smokeless Tobacco: Never Alcohol Use [...] place to sleep or slept in a prison (including now)? No 08/04/2024 Utilities Answer Date [...] Upcoming Encounters Date Type Department Care Team ([facility] st Contact Info) Description 10/12/2026 12:30 PM EST Appointment [facility] [place] [address] [address] [facility] [address] [place] [address] 10/12/2026 1:30 PM EST Office Visit [facility] [address] [facility], 2nd [place] [address] Megan Bonds, INTERNET MERCHANT 800 [facility] [address] [place] [address] documented as of this encounter [...] documented as of this encounter Care Teams Binding Folder Machine Relationship Specialty Start Date End Date Janna Arthur, INTERNET MERCHANT [address] [place] [phone] PCP - General Family Medicine 08/10/23 Nuria Malone MD 800 [facility] Nella Griggs [facility] [address] [place] [address] Consulting Physician Hematology and Oncology 08/23/21 documented as of this encounter
--- OUTSIDE RECORDS SUMMARY | 2025-10-07 08:38 | XMS_ITS | Encounter Summary ---
Author Organization [facility] Address [address] [place] [address] Care Team Providers Care Hearings Reporter Name Role Phone Nuria Malone MD Unavailable [phone] Janna Arthur APRN Primary Care Provider [phone] Encounter Details Date Type Department Care Team [...] any time in the past 12 m [facility], were you homeless or living in a senior living (including now)? No 09/11/[address] [facility] Utilities Answer Date Recorded In the [...] AM Shanel Eastman Feeling tired or having little energy Not at all 05/2025 8:38 AM Shanel Eastman Poor appetite or [...] [facility] Care [facility] [place] [address] [address]ella [address] [facility] [address] [place] [address] 10/12/2026 1:30 PM EST Office Visit [facility] [address] [facility], 2nd [place] [address] Megan Bonds, BREAD WRAPPING MACHINE FEEDER 800 [facility] [address] [place] [address] documented as of this encounter [...] documented as of this encounter Care Teams Hearings Reporter Relationship Specialty Start Date End Date Janna Arthur, BREAD WRAPPING MACHINE FEEDER [address] [place] [phone] PCP - General Family Medicine 08/10/23 Nuria Malone MD 800 [facility] [place] [address] Consulting Physician Hematology and Oncology 08/23/21 documented as of this encounter
--- OUTSIDE RECORDS SUMMARY | 2025-10-07 08:38 | XMS_ITS | Encounter Summary ---
Author Organization [facility] Address [address] [facility] [place] [address] Care Team Providers Care Invoice Classification Clerk Name Role Phone Nuria Malone MD Unavailable [phone] Janna Arthur APRN Primary Care Provider [phone] Encounter Details Date Type Department Care Team (Latest Contact Info) Description 09/22/2025 Travel Social History Tobacco Use Types Packs/Day [...] any time in the past 12 m [facility], were you homeless or living in a retirement (including now)? No 09/11/2025 [facility] Utilities Answer Date Recorded In the past [...] Questionnaire -2 Score 0 09/22/2025 3:03 PM Sydnee Cooley * Question Answer Date of Assessment Author Trouble falling or staying a sleep, or sleeping too much Not at all 09/22/2025 3:03 PM MARGARITO Braga Sydnee Feeling tired or having zoila le energy Not at all 09/22/2025 3:03 PM Sydnee Cooley Poor appetite or overeating Not at all 09/22/2025 3: 03 PM MARGARITO Braga Sydnee Feeling bad about yourself - or that you are a failure or have let yourself or your family down Not at all 09/22/2025 3:03 PM MARGARITO Braga, Adrian lowryayle Trouble concentrating on thi ngs, such as reading the newspaper or watching television Not at all 09/22/2025 3:03 PM Sydnee Cooley Moving or speaking so slowly that other people could have noticed? Or the opposite - being so fidgety or restless that you have been moving around a lot more than usual. Not at all 09/22/2025 3:03 PM MARGARITO Braga Sydnee Thoughts that you would be b ron [...] difficult at all 09/22/2025 3:03 PM EST Sydnee Knight documented as of this encounter Plan of Treatment Upcoming Encounters Date Type Department Care Team (Late st Contact Info) Description 10/12/2026 12:30 PM EST Appointment [facility] Fausto Griggs [facility] [address] [place] [address] 10/12/2026 1:30 PM EST Office Visit [facility] [address] [facility], 2nd [place] [address] Megan Bonds, SHRIMP PEELING MACHINE OPERATOR [address] [facility] Nella Griggs [facility] [address] [place] [address] documented as of this encounter [...] documented as of this encounter Care Teams Invoice Classification Clerk Relationship Specialty Start Date End Date Janna Arthur, SHRIMP PEELING MACHINE OPERATOR [address] [place] [phone] PCP - General Family Medicine 08/10/23 Nuria Malone MD [address] [facility] Nella Griggs [facility] [address] [place] [address] Consulting Physician Hematology and Oncology 08/23/21 documented as of this encounter
--- OUTSIDE RECORDS SUMMARY | 2025-10-07 08:38 | XMS_ITS | Clinical Summary ---
Author Organization [facility] Address [address] [place] [address] Care Team Providers Care Manager Operations Research Name Role Phone Petra Oliva APRN Primary [...] 50+ (1 of 2 - PCV) 1972 TDAP/TD VACCINES (1 - Tdap) 01/07/1997 01/06/1997 COLOGUARD 1998 COLON CANCER SCREENING 5 YEA R SIGMOIDOSCOPY 1998 COLONOSCOPY 1998 [address] CANCER SCREENING 1998 CT COLONOGRAPHY 1998 FECAL OCCULT BLOOD TEST 1998 FIT Testing (1 year) 1998 ZOSTER VACCINE (1 of 2) 2003 INFLUENZA VACCINE 06/05/2025 COVID-19 Vaccine (3 - 2024-2 6 season) 2025 10/03/2021, 01/12/2021 MAMMOGRAM 09/22/2027 09/22/2025, 08/06, 08/29/2023, Additional history exists Insurance MEDICARE A & B Member Subscriber Plan / Payer (Ef fective 2018-Present) Name:Josey Morales Member ID:[id number] Relation to Subscriber:Self Name:Josey Morales Subscriber ID:[id number] Payer ID:[id number] Group ID:Not on file Type:Not on file Address: [facility] [id number] [address] Care Teams Manager Operations Research Relationship Specialty Start Date End Date Petra Oliva APRN [address] [place] [place], [place] [phone] PCP - General Family Medicine 11/14/21
--- OUTSIDE RECORDS SUMMARY | 2025-10-07 08:38 | XMS_ITS | Clinical Summary ---
Author Organization [facility] Address [address] [place] [address] Care Team Providers Care Material Handling Crew Supervisor Name Role Phone Nuria Malone MD Unavailable [phone] Janna Arthur APRN Primary Care Provider [phone] Allergies Active Allergy Reactions Criticality Noted Date Comments Codeine Shortness of breath, Other - please document in the comment field High 08/10/2020 Medications Spacer/Aero-Holdi lexi Malone (E-Z Spacer) inhaler use as directed with dulera 017 Active Cranberry (AZO Cranberry Gummies) 250 MG chewable tablet 2 tab(s) orally once a day Active celecoxib (CeleBREX) 200 MG capsule Take 1 capsule (200 mg) by mouth 1 (one) time each day. 022 Active albuterol 108 (90 Base) MCG/ACT inhalerIndication s:Moderate persistent asthma without complication Inhale 2 puffs 4 (four) times a day if needed for wheezing. 18 g 11 024 Active Fluticasone Furoate-Vilantero l (Breo Ellipta) 100-25 MCG/ACT aerosol powder Inhale 1 Inhalation 1 (one) time each day. 60 each 3 024 Active tiotropium (Spiriva HandiHaler) 18 MCG inhalation capsuleIndication s:Chronic obstructive pulmonary disease, unspecified COPD type (CMS/HCC) Place 1 capsule (18 mcg) into inhaler and inhale 1 (one) time each day. 30 capsule 11 024 Active lisinopril 20 MG tabletIndications :Essential (primary) hypertension Take 1 tablet by mouth daily. 90 tablet 3 025 Active albuterol 1.25 MG/3ML nebulizer solutionIndicatio ns:Chronic obstructive pulmonary disease, unspecified COPD type (CMS/HCC) Take 3 mL by nebulization every 4 hours as needed for wheezing. 360 mL 11 025 Active FLUoxetine (PROzac) 20 MG capsuleIndication s:Anxiety and depression Take 1 capsule by mouth daily. 90 capsule 025 Active omeprazole (PriLOSEC) [address] capsuleIndication s:Gastroesophagea l reflux disease without esophagitis Take 1 capsule by mouth daily. Do not crush or chew. 90 capsule 3 025 Active budesonide-formot janet (Symbicort) 160-4.5 MCG/ACT inhaler Inhale 2 puffs 2 times a day. Rinse mouth with water after use to reduce aftertaste and incidence of candidiasis. Do not swallow. Active meclizine (Antivert) 25 MG tablet Take 1 tablet by mouth 3 times a day as needed for dizziness. 30 tablet 2 Active ondansetron ODT (Zofran-ODT) 4 MG disintegrating tabletIndications :Nausea Dissolve 1 tablet on the tongue every 8 hours as needed for nausea or vomiting. 20 tablet 3 025 Active fluticasone (Flonase) 50 MCG/ACT nasal sprayIndications: Eustachian tube dysfunction, bilateral Administer 1 spray into each nostril daily. Shake gently. Before first use, prime pump. After use, clean tip and replace cap. 16 g 12 025 Active loratadine (Claritin) 10 MG tabletIndications :Eustachian tube dysfunction, bilateral Take 1 tablet by mouth daily. 30 tablet 11 025 Active albuterol 1.25 MG/3ML nebulizer solutionIndicatio ns:Chronic obstructive pulmonary disease, unspecified COPD type (CMS/HCC) Take 3 mL (1.25 mg) by nebulization every 4 (four) hours if needed for wheezing. 360 mL 11 024 2024 Discontinued(R eorder) anastrozole (Arimidex) 1 MG chemo tabletIndications :Malignant neoplasm of right breast in female, estrogen receptor positive, unspecified site of breast TAKE ONE (1) TABLET BY MOUTH ONCE DAILY 30 tablet 025 2024 Discontinued(R eorder) FLUoxetine (PROzac) 20 MG capsuleIndication s:Anxiety and depression Take 1 capsule by mouth daily. 90 capsule 025 2024 Discontinued(R eorder) lisinopril 20 MG tabletIndications :Essential (primary) hypertension Take 1 tablet by mouth daily. 90 tablet 025 2024 Discontinued(R eorder) omeprazole (PriLOSEC) [address] capsuleIndication s:Gastroesophagea l reflux disease without esophagitis Take 1 capsule by mouth daily. Do not crush or chew. 90 capsule 025 2024 Discontinued(R eorder) meclizine (Antivert) 25 MG tablet Take 1 tablet by mouth 3 times a day as needed for dizziness. 2024 Discontinued(R eorder) anastrozole (Arimidex) 1 MG chemo tabletIndications :Malignant neoplasm of right breast in female, estrogen receptor positive, unspecified site of breast Take 1 tablet (1 mg total) by mouth daily. 90 tablet 3 025 2024 Discontinued Active Problems Problem Noted Date Diagnosed Date Major depressive disorder, recurrent, moderate 1 Kidney stone 12/03/2022 Malignant neoplasm of right breast in female, estrogen receptor positive 08/24/2021 Cancer Staging:Pathologic stage from 08/18/2020:Stage IA(pT2, pN0(sn), cM0, G2, ER+, WV+, HER2-, Oncotype DX score: 5) - Signed by Nuria Malone MD on 08/24/2021 Chronic obstructive pulmonary disease 03/19/2018 Arthralgia of multiple sites, bilateral 05/09/20 Allergic rhinitis 11/29/2016 Obesity (BMI 30-39.9) 11/29/2016 Sleep disorder 11/29/2016 Hyperlipidemia 03/03/2015 Essential (primary) hypertension 01/30/2015 Depression 01/30/2015 Esophageal reflux 01/30/2015 Encounters Date Type Department Care Team Description 10/05/2025 Refill [facility] Breast Care Center [address] [facility] [place] [address] Nuria Malone MD Malignant neoplasm of right breast in female, estrogen receptor positive, unspecified site of breast 09/22/2025 3:00 PM EST Office Visit [facility] Breast Care [place] [address] [facility] [place] [address] Lynda Espino PA Malignant neoplasm of right breast in female, estrogen receptor positive, unspecified site of breast (Primary Dx); Encounter for screening mammogram for malignant neoplasm of breast; Encounter for monitoring aromatase inhibitor therapy 09/22/2025 1:23 PM EST - 09/22/2025 11:59 PM EST Hospital Encounter [facility] Breast [facility] [address] [place] [address] Screening mammogram, encounter for Discharge Disposition: Home or Self Care 09/22/2025 Travel 09/17/2025 2:40 PM EST Office Visit [facility] [address] [place] [address] Janna Arthur APRN Syncope, unspecified syncope type (Primary Dx); Dizziness and giddiness; Nausea; Vertigo; Eustachian tube dysfunction, bilateral; Brain fog 09/17/2025 Travel 09/15/2025 Telephone [facility] [address] [place] [address] Janna Arthur APRN HCN - Patient Message 09/11/2025 8:20 AM EST Office Visit [facility] [address] [place] [address] Janna Arthur APRN Routine general medical examination at health care facility (Primary Dx); Essential (primary) hypertension; Chronic obstructive pulmonary disease, unspecified COPD type (CMS/HCC); Anxiety and depression; Gastroesophageal reflux disease without esophagitis 09/11/2025 Travel 09/07/2025 Refill [facility] [address] [place] [address] Janna Arthur APRN Anxiety and depression; Essential (primary) hypertension; Gastroesophageal reflux disease without esophagitis 09/03/2025 Refill [facility] [address] [facility] [place] [address] Nuria Malone MD Malignant neoplasm of right breast in female, estrogen receptor positive, unspecified site of breast 09/03/2025 Refill [facility] [address] [place] [address] Janna Arthur APRN Gastroesophageal reflux disease without esophagitis; Essential (primary) hypertension; Anxiety and depression 08/06/2025 Refill [facility] [address] [facility] [place] [address] Nuria Malone MD Malignant neoplasm of right breast in female, estrogen receptor positive, unspecified site of breast (Primary Dx) from Last 3 Months Immunizations Immunization Administration Dates Next Due [employer] COVID-19 Vaccine (Blue Cap) 18+ 10/03/20 21,01/12/2021 TD (adult), 2 Lf tetanus tox oid, preservative free, adsorbed 01/06/1997 Family History Medical History Relation Name Comments Asthma Father Asthma Mother Relation Name Status Comments Father Mother Social History Tobacco Use Types Packs/Day Years Used Date Smoking Tobacco: Former Cigarettes 1 20 1 8 - 2007 Passive Smoke Exposure: Past Smokeless [...] any time in the past 12 m [facility], were you homeless or living in a correction (including now)? No 09/11/2025 [facility] Utilities Answer Date Recorded In the [...] Mass Index 30.46 09/22/2025 3:09 PM EST Plan of Treatment Upcoming Encounters Date Type Department Care Team (Late st Contact Info) Description 10/12/2026 12:30 PM EST Appointment [facility] Breast Care Center Comprehensive Breast [facility] Center [place] [address] [place] [address] 10/12/2026 1:30 PM EST Office Visit [facility] Breast Care Center [address] [facility]nd [place] [address] Megan Bonds, AUTOMOTIVE INSTRUCTOR [address] [facility] [address] [place] [address] Health Maintenance Due Date Last Done Comments [facility]-Hepatitis C Screening 1953 [facility]-Pneumococcal Vaccine: 50+ Years (1 of 2 - PCV) 1972 [facility]-Zoster Vaccines (1 of 2) 1972 [facility]-DTaP,Tdap,and Td Vaccines (1 - Tdap) 01/07/1997 01/06/1997 CT Colonography 1998 Colonoscopy 1998 FIT-DNA 1998 FIT 1998 FOBT 1998 Sigmoidoscopy 1998 [facility]-Colorectal Cancer Screening 1998 [facility]-RSV Vaccine: 60+ Years or (1 - Risk 60-74 years 1-dose series) 2013 CED-PVXMV-20 Vaccine (3 - season) 2025 10/03/2021, 01/12/2021 [facility]-Influenza Vaccine (#1) 2025 [facility]- SDOH Screenings 03/11/2026 [facility]-Adult SDOH Screenings 03/11/2026 09/11/2025 [facility]-Infant/Child/Adol SDOH Screenings 03/11/2026 09/11/2025 [facility]-Bone Density Scan 09/01/2026 09/01/2024 [facility]-Medicare Annual Wellness (AWV) 09/11/2026 09/11/2025, 08/08/2024 [facility]-Depression Screening 09/22/2026 025, 09/22/2025, 02/27/2024 [facility]-Diabetes: Hemoglobin A1C Discontinued 05/15/2022, 12/17/2018, 05/09/2017, [...] 1:47 PM EST Screening mammogram, encounter for DEXA BONE DENSITY Routine 09/01/2024 12: 11 PM EDT Malignant neoplasm of right breast in female, estrogen receptor positive, unspecified site of breast (CMS/HCC) Use of anastrozole HEMOGLOBIN A1C Routine 05/15/2022 4:10 PM EDT Prediabetes from Last 3 Months or Most Recently Relevant to Health Maintenance Results * Mammography Breast Screening Tomosynthesis Left [...] core-IDC); right mastectomy, 08/2020; hysterectomy (Hysterectomy from [employer]); and hysterectomy (Hysterectomy from [facility]). Medical history includes breast cancer. COMPARISON STUDIES: Compared to: 08/23/2021 Mammography Breast Diagnostic Tomosynthesis Left at [facility] 08/28/2022 Mammography Breast Diagnostic Tomosynthesis Left at [facility] 08/29/2023 Mammography Breast Diagnostic Tomosynthesis Left at [facility] 09/01/2024 Mammography Breast Diagnostic Tomosynthesis Left at [facility] BREAST COMPOSITION: The breasts are heterogeneously dense, which may obscure small masses. FINDINGS: There are benign appearing calcifications present in the left breast. There is no evidence of suspicious masses, calcifications, or other abnormal findings. us Nuria Malone MD IMG BI PROCEDURES Final Resul t * Dexa Bone Density (09/01/2024 12:11 PM EDT) Anatomical Region Laterality Modality L-spine Radio Fluoroscop y Narrative 09/07/2024 4:14 PM EST [facility] [address] [place] [address] DXA Bone Densitometry Report: [09/01/2024] BMD test performed using the PCT International DXA System (analysis version: 14.10) manufactured by [employer]. REFERRING PROVIDER: Dr. Megan Bonds, LKAESHA CLINICAL INFORMATION: osteoporosis PATIENT NAME: Josey Morales [...] comparison and calculation of change in BMD). us Megan Bonds APRN IMG DXA PROCEDURES Final Result * Hemoglobin A1c (05/15/2022 4:10 PM EDT) Hemoglobin A1c 5.4 <5.7 % 05/15/2022 6:09 PM EDT [facility] Blood Venous blood specimen / Unknown Venipuncture / Unknown 05/15/2022 4:10 PM EDT 05/15/2022 4:10 PM EDT Narrative [facility] - 05/15/2022 6:09 PM EDT HA1C [...] APRN LAB BLOOD ORDERABLES Nell parra Result [facility] [address] [place] [phone] from Last 3 Months or Most Recently Relevant to Health Maintenance Insurance MEDICARE ANTHEM Care Teams Material Handling Crew Supervisor Relationship Specialty Start Date End Date Janna Arthur, LAKESHA [address] [place] [address] PCP - General Family Medicine 08/10/23 Nuria Malone MD [address] [address] Consulting Physician Hematology and Oncology 08/23/21
--- OUTSIDE RECORDS SUMMARY | 2025-10-07 08:38 | XMS_ITS | Encounter Summary ---
Author Organization [facility] Address [address] [address] Care Team Providers Care Javascript Software Engineer Name Role Phone Nuria Malone MD Unavailable [phone] Janna Arthur APRN Primary Care Provider Encounter Details Date Type Department Care Team (Latest Contact Info) Description 09/17/2025 Travel Social History Tobacco Use Types Packs/Day [...] any time in the past 12 m [facility], were you homeless or living in a snf (including now)? No 09/11/2025 [facility] Utilities Answer Date Recorded In the past [...] Brandy Amanda documented as of this encounter Plan of Treatment Upcoming Encounters Date Type Department Care Team (Late st Contact Info) Description 10/12/2026 12:30 PM EST Appointment [facility] [address] [facility] [address] [place] [address] 10/12/2026 1:30 PM EST Office Visit [facility] [address] [facility] [place] [address] Megan Bonds, CALL CENTER SPECIALIST [address] [facility] [place] [address] [address] documented as of this encounter Visit Diagnoses [...] documented as of this encounter Care Teams Javascript Software Engineer Relationship Specialty Start Date End Date Janna Arthur APRN [facility] [place] [address] PCP - General Family Medicine 08/10/23 Nuria Malone MD [address] [facility] [address] [place] [address] Consulting Physician Hematology and Oncology 08/23/21 documented as of this encounter
--- OUTSIDE RECORDS SUMMARY | 2025-10-07 08:38 | XMS_ITS | Encounter Summary ---
Author Organization [facility] Address [address] [place] [address] Care Team Providers Care Jeep Driver Name Role Phone Nuria Malone MD Unavailable [phone] Janna Arthur APRN Primary Care Provider [phone] Reason for Visit * Reason Comments Med Refill Encounter Details Date Type Department Care Team (Late st Contact Info) Description 10/05/2025 Refill [facility] [address] [facility]nd [place] [address] Nuria Malone MD [address] [facility] [place] [address] [place] [address] Malignant neoplasm of right breast [...] any time in the past 12 m [facility], were you homeless or living in a long term (including now)? No 09/11/2025 [facility] Utilities Answer Date Recorded In the past 12 months has [facility] [employer], gas, oil, or water company threatened to [...] 12:30 PM EST Appointment [facility] [place] [facility] [address] [facility] [address] [place] [address] 10/12/2026 1:30 PM EST Office Visit [facility] [address] [facility]nd [place] [address] Megan Bonds, WHEELAGE CLERK [address] [facility] [address] [address] documented as of this encounter Visit Diagnoses [...] documented as of this encounter Care Teams Jeep Driver Relationship Specialty Start Date End Date Janna Arthur, WHEELAGE CLERK [address] [place] [phone] PCP - General Family Medicine 08/10/23 Nuria Malone MD [address] [facility] [address] [address] Consulting Physician Hematology and Oncology 08/23/21 documented as of this encounter
--- NOTE | 2025-10-07 08:45 | CA_ITS ---
APPROVED REPORT EXAM: Comprehensive 2D, Doppler, and color-flow Echocardiogram Ecommerce Merchandising Manager: Linda Yates RVT Ht: 5 ft 3 in Wt: 172lbs BSA: 1.81 BP: 191/87 mmHg Indications: SYNCOPE,DIZZINESS,ABNORMAL EKG 2D Dimensions LA Volume 48.80 mL LA Volume Index 26.81 mL/m2 (M/F) 16-34 M-Mode Dimensions RVDd 2.72 cm (0.9-2.6) LA Diam 3.81 cm (1.9-4.0) LVDd 6.04 cm (3.5-5.7) LVDs 4.42 cm (3.5-5.7) IVSd 0.51 cm (0.6-1.1) PWd 0.81 cm (0.6-1.1) EF (Teich) 51.50% FS 26.80% EDV (Teich) 182.80 mL ESV (Teich) 88.60 mL LV Diastology E Decel Time 183 (160-240 msec) E/A Ratio 0.6 Aortic Valve MILLI Index 1.44 cm2/m2 AoV Peak Stephen. 123.0 (50-130 cm/s) AO Peak GR. 6.10 mmHg AO Mean GR. 2.90 (<5 mmHg) AO VTI 25.7 (18-25 cm) MILLI (VTI) 2.68 (2.5-4.5 cm2) Mitral Valve MV E Max Stephen. 59.0 (40-130 cm/s) MV A Velocity 101.0 (40-130 cm/s) E/A Ratio 0.58 MV PHT 54.0 ms Pulmonary Valve PV Peak Velocity 100.0 (50-150 cm/s) Left Ventricle The left ventricle is normal size. Left ventricular systolic function is mildly reduced. There is increased left ventricular wall thickness. The septum is asynchronous. Grade 1 diastolic dysfunction is present. LVEF is 45% Right Ventricle Right ventricle is mildly to moderately dilated. The right ventricular systolic function is normal Atria Left atrium is mildly dilated. Right atrium is mildly dilated. There is no color Doppler evidence of interatrial shunt. Aortic Valve The aortic valve is mildly thickened. There is no hemodynamically significant aortic valvular stenosis. Trace aortic regurgitation is present. Mitral Valve The mitral valve is mildly thickened. No evidence of mitral valve stenosis. Trace mitral regurgitation is present. Tricuspid Valve The tricuspid valve leaflets are thin and pliable. Trace tricuspid regurgitation. There is insufficient TR jet to estimate RVSP. Pulmonic Valve The pulmonary valve is grossly normal in structure. Trace pulmonic valve regurgitation is present. Great Vessels The aortic root is normal in size. IVC is normal in size and collapses >50% with inspiration. Pericardium There is no pericardial effusion. Other Information Study Quality: Technically Difficult Conclusion Mildly reduced LV systolic function (LVEF 45%). Asynchronous septum. Mild to moderate RV dilation with normal RV function. Biatrial dilation. No significant valvular stenosis or regurgitation. Electronically signed by : Anne-Marie Stacy MD 10/16/2025 17:20:37
== END 2025-10-07 23:59 | disposition home or self-care (01) ==
LOC: RT 08:35
PROVIDERS: PCP Nurse Practitioner Family; Visit Provider Nurse Practitioner Family
DX: I11.9 Hypertensive heart disease without heart failure (principal); R55 Syncope and collapse; R42 Dizziness and giddiness; R93.1 Abnormal findings on diagnostic imaging of heart and coronary circulation; R94.31 Abnormal electrocardiogram [ECG] [EKG]
CPT/HCPCS: 93306

== ENCOUNTER 2025-11-04 12:16 | Outpatient (CLI) | payer MEDICARE, BC, SELFPAY ==
--- OUTSIDE RECORDS SUMMARY | 2025-09-11 08:20 | XMS_ITS | Encounter Summary ---
Author Organization [facility] Address [address] [place] [address] Care Team Providers Care Customer Response Representative Name Role Phone Nuria Malone MD Unavailable [phone] Janna Arthur APRN Primary Care Provider [phone] Reason for Visit * Reason Comments Medicare Annual Wellness Visit Initial Encounter Details Date Type Department Care Team (Late st Contact Info) Description 09/11/2025 8:20 AM EST Office Visit [facility] [address] [place] [address] Janna Arthur, LAKESHA [address] [place] [address] Routine general medical examination at [...] any time in the past 12 m [facility], were you homeless or living in a residential (including now)? No 09/11/2025 [facility] Utilities Answer Date Recorded In the past 12 months has th e electric, gas, oil, or water company threatened [...] documented in this encounter Functional Status * BP Answer Date of Assessment Author 138/80 09/11/2025 8:33 AM EST Jimenez, Shanel * Temp Answer Date of Assessment Author 98 09/11/2025 8:33 AM EST Jimenez, A lma * Temp src Answer Date of Assessment Author Oral 09/11/2025 8:33 AM EST Jimenez, A lma * Pulse Answer Date of Assessment Author 74 09/11/2025 8:33 AM EST Jimenez, A lma * SpO2 Answer Date of Assessment Author 96 09/11/2025 8:33 AM EST Jimenez, A lma * Height Answer Date of Assessment Author 63 09/11/2025 8:33 AM EST Jimenez, A lma * Weight Answer Date of Assessment Author 2751.34 09/11/2025 8:33 AM EST Jimenez, A lma * BMI (Calculated) Answer Date of Assessment Author 30.5 09/11/2025 8:33 AM EST Jimenez, A lma * Percent Excess Weight Loss Answer Date of Assessment Author 0 09/11/2025 8:33 AM EST Jimenez, A lma * Total Weight Change Percent Answer Date of Assessment Author 2222 09/11/2025 8:33 AM EST Jimenez, A lma * Weight Change Since Preop Answer Date of Assessment Author 77.98 09/11/2025 8:33 AM EST Jimenez, A lma * Initial Excess Weight Answer Date of Assessment Author -52.16 09/11/2025 8:33 AM EST Jimenez, A lma * IBW in lbs (Bariatric) Answer Date of Assessment Author 115 09/11/2025 8:33 AM EST Jimenez, A lma * Weight Change Since Last Visit Answer Date of Assessment Author 77.98 09/11/2025 8:33 AM EST Jimenez, A lma * IBW in kg (Bariatric) Answer Date of Assessment Author 52.16 09/11/2025 8:33 AM EST Jimenez, A lma * Percent of IBW Answer Date of Assessment Author 5,274.81 09/11/2025 8:33 AM EST Jimenez, A lma * EBW (kg) Answer Date of Assessment Author 2,749.86 09/11/2025 8:33 AM EST Jimenez, A lma * EBW (lbs) Answer Date of Assessment Author 2,744.15 09/11/2025 8:33 AM EST Jimenez, A lma * Weight Change 24 hrs Answer Date of Assessment Author .7 09/11/2025 8:33 AM EST Jimenez, A lma * AWV Health Risk Assessment Completion Question Answer Date of Assessment Author AWV Health Risk Assessment Complete Yes 09/11/2025 8:48 AM EST Janna Arthur A PRN * Depression Screening Question Answer Date of Assessment Author Will the patient answer the depression risk questions? Yes 09/11/2025 8:38 AM EST Jimenez, Shanel * BSA (Calculated - sq m) Answer Date of Assessment Author 1.86 09/11/2025 8:33 AM EST Jimenez, A lma * BMI (Calculated) Answer Date of Assessment Author 30.47 09/11/2025 8:33 AM EST Jimenez, A lma * BP Location Answer Date of Assessment Author Left arm 09/11/2025 8:33 AM EST Jimenez, A lma * IBW/kg (Calculated) Male Answer Date of Assessment Author 56.9 09/11/2025 8:33 AM EST Jimenez, A lma * IBW/kg (Calculated) Female Answer Date of Assessment Author 52.4 09/11/2025 8:33 AM EST Jimenez, A lma * IBW/kg (Calculated) Answer Date of Assessment Author 52.4 09/11/2025 8:33 AM EST Jimenez, A lma * Over the past 2 weeks, how often have you been bothered by any of the following problems? Question Answer Date of Assessment Author Little interest or pleasure in doing things Not at all 09/11/2025 8:38 AM EST Jimenez, Shanel Feeling down, depressed, or hopeless Not at all 05/2025 8:38 AM EST Jimenez, Shanel Patient Health Questionnaire-2 Score 0 05/2025 8:38 AM EST Jimenez, Shanel * Over the past 2 weeks, how often have you been bothered by any of the following problems? Question Answer Date of Assessment Author Trouble falling or staying a sleep, or sleeping too much Not at all 09/11/2025 8:38 AM EST Jimenez, Shanel Feeling tired or having little energy Not at all 05/2025 8:38 AM EST Jimenez, Shanel Poor appetite or overeating Not at all 09/11/2025 8: 38 AM EST Jimenez, Shanel Feeling bad about yourself - or that you are a failure or have let yourself or your family down Not at all 09/11/2025 8:38 AM EST Jimenez, Shanel Trouble concentrating on thi ngs, such as reading the newspaper or watching television Not at all 09/11/2025 8:38 AM EST Jimenez, Shanel Moving or speaking so slowly that other people could have noticed. Or the opposite - being so fidgety or restless that you have been moving around a lot more than usual Not at all 09/11/2025 8:38 AM EST Jimenez, Shanel Thoughts that you would be b ron off or hurting yourself in some way Not at all 09/11/2025 8:38 AM EST Jimenez, Shanel Patient Health Questionnaire-9 Score 0 11/0 05/2025 8:38 AM EST Jimenez, Shanel * Calculated C-SSRS Risk Score (Lifetime/Recent) Answer Date of Assessment Author No Risk Indicated 09/11/2025 8:38 AM EST Jimenez, Shanel * How difficult have these problems made it for you to do your work, take care of things at home, or get along with other people? Answer Date of Assessment Author Not difficult at all 09/11/2025 8:38 AM EST Rang el, Shanel * Weight in (lb) to have BMI = 25 Answer Date of Assessment Author 140.8 09/11/2025 8:33 AM EST Jimenez, A lma * BMI (Calculated) Answer Date of Assessment Author 30.5 09/11/2025 8:33 AM EST Jimenez, A lma * Percent Excess Weight Loss Answer Date of Assessment Author 0 09/11/2025 8:33 AM EST Jimenez, A lma * Weight Change Since Preop Answer Date of Assessment Author 78 09/11/2025 8:33 AM EST Jimenez, A lma * Initial Excess Weight Answer Date of Assessment Author -52.16 09/11/2025 8:33 AM EST Jimenez, A lma * IBW in kg (Bariatric) Answer Date of Assessment Author 52.16 09/11/2025 8:33 AM EST Jimenez, A lma * IBW in lb (Bariatric) Answer Date of Assessment Author 115 09/11/2025 8:33 AM EST Jimenez, A lma * Weight Change Since Last Visit Answer Date of Assessment Author 78 09/11/2025 8:33 AM EST Jimenez, A lma * Percent of IBW Answer Date of Assessment Author 149.53 09/11/2025 8:33 AM EST Jimenez, A lma * EBW (kg) Answer Date of Assessment Author 25.82 09/11/2025 8:33 AM EST Jimenez, A lma * EBW (lb) Answer Date of Assessment Author 56.96 09/11/2025 8:33 AM MARGARITO Jimenez, A lma * What were the three objects I asked you to remember? Question Answer Date of Assessment Author Apple 0 09/11/2025 8:49 AM Janna Boudreaux APRN Table 1 09/11/2025 8:49 AM Janna Boudreaux APRN Gayathri 0 09/11/2025 8:49 AM Janna Boudreaux APRN * Six-Item Cognitive Screening Question Answer Date of Assessment Author Did the patient correctly re peat all three words 0 09/11/2025 8:49 AM Janna Boudreaux A PRN What year is this? 0 09/11/2025 8:49 AM Janna Boudreaux APRN What month is this? 0 09/11/2025 8:49 AM CORNEL T Janna Arthur APRN What is the day of the week? 0 09/11/2025 8 :49 AM Janna Boudreaux APRN * Total Question Answer Date of Assessment Author Total Incorrect 1 09/11/2025 8:49 AM Janna Farias APRN * Hospitalization Question Answer Date of Assessment Author Have you been hospitalized s teresa we last saw you? No 09/11/2025 8:48 AM Janna Boudreaux A PRN * Alcohol Assessment Question Answer Date of Assessment Author In a typical week, how much alcohol do you drink? None 09/11/2025 8:48 AM Janna Boudreaux APRN Do you ever have 5 or more alcoholic drinks on one occasion? No 09/11/2025 8:48 AM Janna Short APRN * Seen Outside Provider? Question Answer Date of Assessment Author Have you seen a health care provider outside our clinic since we last saw you? Yes 09/11/2025 8:48 AM Janna Boudreaux A PRN Date of Visit: [id number] 09/11/2025 8:48 AM Janna Short APRN Provider Name Dr. Jason Liz 09/11/2025 8:48 AM Janna Boudreaux APRN * Home Risk Assessment AWV Question Answer Date of Assessment Author Have you fallen in the last year? No falls in the last year or 1 fall with no injury in the last year 09/11/2025 8:48 AM Janna Boudreaux APRN Does your home have rugs in the hallway? No 09/11/2025 8:48 AM Janna Boudreaux APRN Does your home have grab bars in the bathroom? Yes 09/11/2025 8:48 AM Janna Boudreaux APRN Does you home have handrails on the stairs? Yes 09/11/2025 8:48 AM Janna Boudreaux APRN Does your home have good lighting? Yes 09/11/2025 8:48 AM Janna Boudreaux APRN Do you know where to locate and how to properly use a first aid kit and fire extinguisher in case of an emergency? Yes 09/11/2025 8:48 AM Janna Boudreaux APRN * Health Habits (AWV) Question Answer Date of Assessment Author In general, how would you say your health is? Good 09/11/2025 8:48 AM Janna Boudreaux A PRN In general, how satisfied are you with your life? Very Satisfied 09/11/2025 8:48 AM Janna Boudreaux APRN In the past 7 days, how much pain have you felt? Some 09/11/2025 8:48 AM Janna Boudreaux QUARRY MANAGER Do you usually exercise at least 30 minutes or more, 4 days a week? No 09/11/2025 8:48 AM Janna Boudreaux A PRN Do you usually eat a diet that has at least 4 servings of fruit & vegetables, includes whole grain & fiber and avoids other than occasional servings of high fat foods? Yes 09/11/2025 8:48 AM Janna Boudreaux A PRN How would you describe the condition of your mouth and teeth (including false teeth or dentures)? Good 09/11/2025 8:48 AM Janna Boudreaux, A PRN Do you always fasten your seat belt when you are in the car? Yes 09/11/2025 8:48 AM EST Sandhya, Janna M, A PRN In the past 7 days have you had any problems staying or falling asleep? No 09/11/2025 8:48 AM EST Jake Arthur, QUARRY MANAGER In the past 7 days have you had problems with constipation? No 09/11/2025 8:48 AM EST Janna Arthur, A PRN * Activities of Daily Living Screening Question Answer Date of Assessment Author In the past 7 days, did you need help from others to perform everyday activities such as eating, getting dressed, grooming, bathing, walking, or using the toilet? No 09/11/2025 8:48 AM Janna Boudreaux, A PRN In the past 7 days, did you need help from others to take care of things such as laundry and housekeeping, banking, shopping, using the telephone, food preparation, transportation, or taking your own medications? No 09/11/2025 8:48 AM EST Claire Arthur QUARRY MANAGER * Memory Question Answer Date of Assessment Author Do you or any of your friend s or family members have any concerns about your memory? No 09/11/2025 8:48 AM Janna Boudreaux, A PRN * Hearing Question Answer Date of Assessment Author Do you have any problems wit h your hearing? No 09/11/2025 8:48 AM Janna Boudreaux, A PRN * Difference in Weight Since Last Visit Answer Date of Assessment Author 0.7 09/11/2025 8:33 AM EST Jimenez, A lma * Temp (in Celsius) for KOI IV Answer Date of Assessment Author 36.7 09/11/2025 8:33 AM EST Jimenez, A lma * IBW/kg (Calculated) Answer Date of Assessment Author 52.4 09/11/2025 8:33 AM EST Jimenez, A lma * Adult Low Range Vt 6mL/kg Answer Date of Assessment Author 314.4 09/11/2025 8:33 AM EST Jimenez, A lma * Adult Moderate Range Vt 8mL/kg Answer Date of Assessment Author 419.2 09/11/2025 8:33 AM EST Jimenez, A lma * Adult High Range Vt 10mL/kg Answer Date of Assessment Author 524 09/11/2025 8:33 AM EST Jimenez, A lma * Pain Score Answer Date of Assessment Author 0 09/11/2025 8:37 AM EST Jimenez, A lma * Patient Position Answer Date of Assessment Author Sitting 09/11/2025 8:33 AM EST Jimenez, A lma * Pain Screening/Additional Assessments Question Answer Date of Assessment Author Pain Screening/Assessments Pain Screening 09/11/2025 8 :37 AM EST Jimenez, Shanel * Pain Screening Answer Date of Assessment Author 0-10 09/11/2025 8:37 AM EST Jimenez, A lma * C-SSRS (Screener) Question Answer Date of Assessment Author Is patient awake, alert, and able/willing to answer questions appropriately? Yes 09/11/2025 8:38 AM EST Ra lexiel, Shanel 1. Wish to be (Past 1 Month) No 025 8:38 AM EST Jimenez, Shanel 2. Non-Specific Active Suici carlitos Thoughts (Past 1 Month) No 09/11/2025 8:38 AM EST Jimenez, Shanel 6. Suicidal Behavior (Lifetime) No 8:38 AM EST Jimenez, Shanel * BP Answer Date of Assessment Author 138/80 09/11/2025 8:33 AM EST Jimenez, A lma * Temp Answer Date of Assessment Author 98 09/11/2025 8:33 AM EST Jimenez, A lma * Temp src Answer Date of Assessment Author Oral 09/11/2025 8:33 AM EST Jimenez, A lma * Pulse Answer Date of Assessment Author 74 09/11/2025 8:33 AM EST Jimenez, A lma * SpO2 Answer Date of Assessment Author 96 09/11/2025 8:33 AM EST Jimenez, A lma * Height Answer Date of Assessment Author 63 09/11/2025 8:33 AM EST Jimenez, A lma * Weight Answer Date of Assessment Author 2751.34 09/11/2025 8:33 AM EST Jimenez, A lma * AWV Health Risk Assessment Completion Question Answer Date of Assessment Author AWV Health Risk Assessment Complete Yes 09/11/2025 8:48 AM EST SandhyaJanna M, A PRN * BSA (Calculated - sq m) Answer Date of Assessment Author 1.86 09/11/2025 8:33 AM EST Jimenez, A lma * BMI (Calculated) Answer Date of Assessment Author 30.47 09/11/2025 8:33 AM EST Jimenez, A lma * BP Location Answer Date of Assessment Author Left arm 09/11/2025 8:33 AM EST Jimenez, A lma * Over the past 2 weeks, how often have you been bothered by any of the following problems? Question Answer Date of Assessment Author Little interest or pleasure in doing things Not at all 09/11/2025 8:38 AM EST Jimenez, Shanel Feeling down, depressed, or hopeless Not at all 05/2025 8:38 AM EST Jimenez, Shanel Patient Health Questionnaire-2 Score 0 05/2025 8:38 AM EST Jimenez Shanel * Over the past 2 weeks, how often have you been bothered by any of the following problems? Question Answer Date of Assessment Author Trouble falling or staying a sleep, or sleeping too much Not at all 09/11/2025 8:38 AM EST Jimenez, Shanel Feeling tired or having little energy Not at all 05/2025 8:38 AM EST Jimenez, Shanel Poor appetite or overeating Not at all 09/11/2025 8 :38 AM EST Jimenez, Shanel Feeling bad about yourself - or that you are a failure or have let yourself or your family down Not at all 09/11/2025 8:38 AM EST Jimenez, Shanel Trouble concentrating on thi ngs, such as reading the newspaper or watching television Not at all 09/11/2025 8:38 AM EST Jimenez Shanel Moving or speaking so slowly that other people could have noticed. Or the opposite - being so fidgety or restless that you have been moving around a lot more than usual Not at all 09/11/2025 8:38 AM EST Jimenez Shanel Thoughts that you would be b ron off or hurting yourself in some way Not at all 09/11/2025 8:38 AM EST Jimenez, Shanel Patient Health Questionnaire-9 Score 0 05/2025 8:38 AM EST Jimenez Shanel * Calculated C-SSRS Risk Score (Lifetime/Recent) Answer Date of Assessment Author No Risk Indicated 09/11/2025 8:38 AM EST Tony Shanel * How difficult have these problems made it for you to do your work, take care of things at home, or get along with other people? Answer Date of Assessment Author Not difficult at all 09/11/2025 8:38 AM EST Emmanuel pratt, Shanel * Weight in (lb) to have BMI = 25 Answer Date of Assessment Author 140.8 09/11/2025 8:33 AM EST Tony, A lma * Hospitalization Question Answer Date of Assessment Author Have you been hospitalized s teresa we last saw you? No 09/11/2025 8:48 AM Janna Boudreaux A PRN * Alcohol Assessment Question Answer Date of Assessment Author In a typical week, how much alcohol do you drink? None 09/11/2025 8:48 AM Janna Boudreaux APRN Do you ever have 5 or more alcoholic drinks on one occasion? No 09/11/2025 8:48 AM Janna Short APRN * Seen Outside Provider? Question Answer Date of Assessment Author Have you seen a health care provider outside our clinic since we last saw you? Yes 09/11/2025 8:48 AM Janna Boudreaux A PRN Date of Visit: [id number] 09/11/2025 8:48 AM Janna Short APRN Provider Name Dr. Jason Liz 09/11/2025 8:48 AM Janna Boudreaux APRN * Home Risk Assessment AWV Question Answer Date of Assessment Author Have you fallen in the last year? No falls in the last year or 1 fall with no injury in the last year 09/11/2025 8:48 AM Janna Boudreaux APRN Does your home have rugs in the hallway? No 09/11/2025 8:48 AM Janna Boudreaux APRN Does your home have grab bars in the bathroom? Yes 09/11/2025 8:48 AM Janna Boudreaux APRN Does you home have handrails on the stairs? Yes 09/11/2025 8:48 AM Janna Boudreaux APRN Does your home have good lighting? Yes 09/11/2025 8:48 AM EST Janna Arthur, QUARRY MANAGER Do you know where to locate and how to properly use a first aid kit and fire extinguisher in case of an emergency? Yes 09/11/2025 8:48 AM EST Janna Arthur, QUARRY MANAGER * Health Habits (AWV) Question Answer Date of Assessment Author In general, how would you say your health is? Good 09/11/2025 8:48 AM EST Janna Arthur M, A PRN In general, how satisfied are you with your life? Very Satisfied 09/11/2025 8:48 AM EST Janna Arthur, QUARRY MANAGER In the past 7 days, how much pain have you felt? Some 09/11/2025 8:48 AM EST Janna Arthur, QUARRY MANAGER Do you usually exercise at least 30 minutes or more, 4 days a week? No 09/11/2025 8:48 AM EST Janna Arthur M, A PRN Do you usually eat a diet that has at least 4 servings of fruit & vegetables, includes whole grain & fiber and avoids other than occasional servings of high fat foods? Yes 09/11/2025 8:48 AM EST Janna Arthur M, A PRN How would you describe the condition of your mouth and teeth (including false teeth or dentures)? Good 09/11/2025 8:48 AM EST Janna Arthur M, A PRN Do you always fasten your seat belt when you are in the car? Yes 09/11/2025 8:48 AM EST Janna Arthur M, A PRN In the past 7 days have you had any problems staying or falling asleep? No 09/11/2025 8:48 AM EST Jake Arthur, QUARRY MANAGER In the past 7 days have you had problems with constipation? No 09/11/2025 8:48 AM EST Janna Arthur M, A PRN * Activities of Daily Living Screening Question Answer Date of Assessment Author In the past 7 days, did you need help from others to perform everyday activities such as eating, getting dressed, grooming, bathing, walking, or using the toilet? No 09/11/2025 8:48 AM EST Janna Arthur M, A PRN In the past 7 days, did you need help from others to take care of things such as laundry and housekeeping, banking, shopping, using the telephone, food preparation, transportation, or taking your own medications? No 09/11/2025 8:48 AM EST Claire Arthur, QUARRY MANAGER * Memory Question Answer Date of Assessment Author Do you or any of your friend s or family members have any concerns about your memory? No 09/11/2025 8:48 AM Janna Boudreaux, Adrian PRN * Hearing Question Answer Date of Assessment Author Do you have any problems wit h your hearing? No 09/11/2025 8:48 AM EST Janna Arthur, A PRN * Pain Score Answer Date of Assessment Author 0 09/11/2025 8:37 AM EST Jimenez, A lma * Patient Position Answer Date of Assessment Author Sitting 09/11/2025 8:33 AM EST Jimenez, A lma * Learning Needs Screening Question Answer Date of Assessment Author Are there things (barriers) that make it harder for this patient to learn? No Barriers 09/11/2025 8:39 AM EST Tony Shanel What is the best language to use for teaching this patient about his/her health? [place] 09/11/2025 8:39 AM EST Tony Shanel What format does this patient think is most helpful for learning? Listening;Reading;Demons tration;Pictures/Video 09/11/2025 8:39 AM EST Tony Shanel Primary Learner Patient 09/11/2025 8:39 AM EST Shanel Malhotra * Readiness to Learn Question Answer Date of Assessment Author Readiness Eager 09/11/2025 8:39 AM EST Casimiro parra Shanel * C-SSRS (Screener) Question Answer Date of Assessment Author Is patient awake, alert, and able/willing to answer questions appropriately? Yes 09/11/2025 8:38 AM EST Jigar Malhotraa 1. Wish to be (Past 1 Month) No 025 8:38 AM EST Tony Shanel 2. Non-Specific Active Suici carlitos Thoughts (Past 1 Month) No 09/11/2025 8:38 AM EST Tony Shanel 6. Suicidal Behavior (Lifetime) No 8:38 AM EST Jimenez, Shanel documented as of this encounter Mental Status * BP Answer Entry Date Author 138/80 09/11/2025 8:33 AM EST Jimenez, A lma * Temp Answer Entry Date Author 98 09/11/2025 8:33 AM EST Jimenez, A lma * Temp src Answer Entry Date Author Oral 09/11/2025 8:33 AM EST Jimenez, A lma * Pulse Answer Entry Date Author 74 09/11/2025 8:33 AM EST Jimenez, A lma * SpO2 Answer Entry Date Author 96 09/11/2025 8:33 AM EST Jimenez, A lma * Height Answer Entry Date Author 63 09/11/2025 8:33 AM EST Jimenez, A lma * Weight Answer Entry Date Author 2751.34 09/11/2025 8:33 AM EST Jimenez, A lma * BMI (Calculated) Answer Entry Date Author 30.5 09/11/2025 8:33 AM EST Jimenez, A lma * Percent Excess Weight Loss Answer Entry Date Author 0 09/11/2025 8:33 AM EST Jimenez, A lma * Total Weight Change Percent Answer Entry Date Author 2222 09/11/2025 8:33 AM EST Jimenez, A lma * Weight Change Since Preop Answer Entry Date Author 77.98 09/11/2025 8:33 AM EST Jimenez, A lma * Initial Excess Weight Answer Entry Date Author -52.16 09/11/2025 8:33 AM EST Jimenez, A lma * IBW in lbs (Bariatric) Answer Entry Date Author 115 09/11/2025 8:33 AM EST Jimenez, A lma * Weight Change Since Last Visit Answer Entry Date Author 77.98 09/11/2025 8:33 AM EST Jimenez, A lma * IBW in kg (Bariatric) Answer Entry Date Author 52.16 09/11/2025 8:33 AM EST Jimenez, A lma * Percent of IBW Answer Entry Date Author 5,274.81 09/11/2025 8:33 AM EST Jimenez, A lma * EBW (kg) Answer Entry Date Author 2,799.86 09/11/2025 8:33 AM EST Jimenez, A lma * EBW (lbs) Answer Entry Date Author 2,474.15 09/11/2025 8:33 AM EST Jimenez, A lma * Weight Change 24 hrs Answer Entry Date Author .7 09/11/2025 8:33 AM EST Jimenez, A lma * AWV Health Risk Assessment Completion Question Answer Entry Date Author AWV Health Risk Assessment Complete Yes 09/11/2025 8:48 AM EST [place] SpringsJanna M, A PRN * Depression Screening Question Answer Entry Date Author Will the patient answer the depression risk questions? Yes 09/11/2025 8:38 AM EST Jimenez, Shanel * BSA (Calculated - sq m) Answer Entry Date Author 1.86 09/11/2025 8:33 AM EST Jimenez, A lma * BMI (Calculated) Answer Entry Date Author 30.47 09/11/2025 8:33 AM EST Jimenez, A lma * BP Location Answer Entry Date Author Left arm 09/11/2025 8:33 AM EST Jimenez, A lma * IBW/kg (Calculated) Male Answer Entry Date Author 56.9 09/11/2025 8:33 AM EST Jimenez, A lma * IBW/kg (Calculated) Female Answer Entry Date Author 52.4 09/11/2025 8:33 AM EST Jimenez, A lma * IBW/kg (Calculated) Answer Entry Date Author 52.4 09/11/2025 8:33 AM EST Jimenez, A lma * Over the past 2 weeks, how often have you been bothered by any of the following problems? Question Answer Entry Date Author Little interest or pleasure in doing things Not at all 09/11/2025 8:38 AM EST Jimenez, Shanel Feeling down, depressed, or hopeless Not at all 05/2025 8:38 AM EST Jimenez, Shanel Patient Health Questionnaire-2 Score 0 05/2025 8:38 AM EST Jimenez, Shanel * Over the past 2 weeks, how often have you been bothered by any of the following problems? Question Answer Entry Date Author Trouble falling or staying a sleep, or sleeping too much Not at all 09/11/2025 8:38 AM EST Jimenez, Shanel Feeling tired or having little energy Not at all 05/2025 8:38 AM EST Jimenez, Shanel Poor appetite or overeating Not at all 09/11/2025 8: 38 AM EST Jimenez, Shanel Feeling bad about yourself - or that you are a failure or have let yourself or your family down Not at all 09/11/2025 8:38 AM EST Jimenez, Shanel Trouble concentrating on thi ngs, such as reading the newspaper or watching television Not at all 09/11/2025 8:38 AM EST Jimenez, Shanel Moving or speaking so slowly that other people could have noticed. Or the opposite - being so fidgety or restless that you have been moving around a lot more than usual Not at all 09/11/2025 8:38 AM EST Jimenez, Shanel Thoughts that you would be b ron off or hurting yourself in some way Not at all 09/11/2025 8:38 AM EST Jimenez, Shanel Patient Health Questionnaire-9 Score 0 05/2025 8:38 AM EST Jimenez, Shanel * HARK Concern Calculation Answer Entry Date Author 1 09/11/2025 8:39 AM EST Jimenez, A lma * Food Insecurity Concern Calculation Answer Entry Date Author 1 09/11/2025 8:39 AM EST Jimenez, A lma * Transportation Needs Concern Calculation Answer Entry Date Author 1 09/11/2025 8:39 AM EST Jimenez, A lma * Housing Stability Concern Calculation Answer Entry Date Author 0 09/11/2025 8:39 AM EST Jimenez, A lma * Utilities Concern Calculation Answer Entry Date Author 1 09/11/2025 8:39 AM EST Jimenez, A lma * [facility] Calculation Answer Entry Date Author 3 09/11/2025 8:38 AM EST Jimenez, A lma * Calculated C-SSRS Risk Score (Lifetime/Recent) Answer Entry Date Author No Risk Indicated 09/11/2025 8:38 AM EST Jimenez, Shanel * How difficult have these problems made it for you to do your work, take care of things at home, or get along with other people? Answer Entry Date Author Not difficult at all 09/11/2025 8:38 AM EST Rang el, Shanel * Restart Pain Assessment Timer Answer Entry Date Author Yes 09/11/2025 8:37 AM EST Jimenez, A lma * Weight in (lb) to have BMI = 25 Answer Entry Date Author 140.8 09/11/2025 8:33 AM EST Jimenez, A lma * BMI (Calculated) Answer Entry Date Author 30.5 09/11/2025 8:33 AM EST Jimenez, A lma * Percent Excess Weight Loss Answer Entry Date Author 0 09/11/2025 8:33 AM EST Jimenez, A lma * Weight Change Since Preop Answer Entry Date Author 78 09/11/2025 8:33 AM EST Jimenez, A lma * Initial Excess Weight Answer Entry Date Author -52.16 09/11/2025 8:33 AM EST Jimenez, A lma * IBW in kg (Bariatric) Answer Entry Date Author 52.16 09/11/2025 8:33 AM EST Jimenez, A lma * IBW in lb (Bariatric) Answer Entry Date Author 115 09/11/2025 8:33 AM EST Jimenez, A lma * Weight Change Since Last Visit Answer Entry Date Author 78 09/11/2025 8:33 AM EST Jimenez, A lma * Percent of IBW Answer Entry Date Author 149.53 09/11/2025 8:33 AM EST Jimenez, A lma * EBW (kg) Answer Entry Date Author 25.82 09/11/2025 8:33 AM EST Jimenez, A lma * EBW (lb) Answer Entry Date Author 56.96 09/11/2025 8:33 AM EST Jimenez, A lma * What were the three objects I asked you to remember? Question Answer Entry Date Author Apple 0 09/11/2025 8:49 AM Janna Boudreaux APRN Table 1 09/11/2025 8:49 AM Janna Boudreaux APRN Gayathri 0 09/11/2025 8:49 AM Janna Boudreaux APRN * Six-Item Cognitive Screening Question Answer Entry Date Author Did the patient correctly re peat all three words 0 09/11/2025 8:49 AM Janna Boudreaux A PRN What year is this? 0 09/11/2025 8:49 AM Janna Boudreaux APRN What month is this? 0 09/11/2025 8:49 AM ES T Janna Arthur APRN What is the day of the week? 0 09/11/2025 8 :49 AM Janna Boudreaux APRN * Total Question Answer Entry Date Author Total Incorrect 1 09/11/2025 8:49 AM Janna Farias APRN * Hospitalization Question Answer Entry Date Author Have you been hospitalized s teresa we last saw you? No 09/11/2025 8:48 AM Janna Boudreaux, A PRN * Alcohol Assessment Question Answer Entry Date Author In a typical week, how much alcohol do you drink? None 09/11/2025 8:48 AM Janna Boudreaux APRN Do you ever have 5 or more alcoholic drinks on one occasion? No 09/11/2025 8:48 AM Janna Short APRN * Seen Outside Provider? Question Answer Entry Date Author Have you seen a health care provider outside our clinic since we last saw you? Yes 09/11/2025 8:48 AM Janna Boudreaux APRN Date of Visit: [address] 09/11/2025 8:48 AM Janna Boudreaux APRN Provider Name Dr. Jasno Liz 09/11/2025 8:4 8 AM Janna Boudreaux APRN * Home Risk Assessment AWV Question Answer Entry Date Author Have you fallen in the last year? No falls in the last year or 1 fall with no injury in the last year 09/11/2025 8:48 AM Janna Boudreaux APRN Does your home have rugs in the hallway? No 09/11/2025 8:48 AM Janna Boudreaux APRN Does your home have grab bars in the bathroom? Yes 09/11/2025 8:48 AM Janna Boudreaux APRN Does you home have handrails on the stairs? Yes 09/11/2025 8:48 AM Janna Boudreaux APRN Does your home have good lighting? Yes 09/11/2025 8:48 AM Janna Boudreaux APRN Do you know where to locate and how to properly use a first aid kit and fire extinguisher in case of an emergency? Yes 09/11/2025 8:48 AM Payton Boudreauxe M, QUARRY MANAGER * Health Habits (AWV) Question Answer Entry Date Author In general, how would you say your health is? Good 09/11/2025 8:48 AM EST Janna Arthur M, A PRN In general, how satisfied are you with your life? Very Satisfied 09/11/2025 8:48 AM EST Janna Arthur, QUARRY MANAGER In the past 7 days, how much pain have you felt? Some 09/11/2025 8:48 AM EST Janna Arthur, QUARRY MANAGER Do you usually exercise at least 30 minutes or more, 4 days a week? No 09/11/2025 8:48 AM EST Janna Arthur, A PRN Do you usually eat a diet that has at least 4 servings of fruit & vegetables, includes whole grain & fiber and avoids other than occasional servings of high fat foods? Yes 09/11/2025 8:48 AM EST Milan Arthur, QUARRY MANAGER How would you describe the condition of your mouth and teeth (including false teeth or dentures)? Good 09/11/2025 8:48 AM EST Payton Arthure M, A PRN Do you always fasten your seat belt when you are in the car? Yes 09/11/2025 8:48 AM EST Payton Arthure M, A PRN In the past 7 days have you had any problems staying or falling asleep? No 09/11/2025 8:48 AM EST [place] M, A PRN In the past 7 days have you had problems with constipation? No 09/11/2025 8:48 AM EST Janna Arthur M, A PRN * Activities of Daily Living Screening Question Answer Entry Date Author In the past 7 days, did you need help from others to perform everyday activities such as eating, getting dressed, grooming, bathing, walking, or using the toilet? No 09/11/2025 8:48 AM EST Payton Arthure M, A PRN In the past 7 days, did you need help from others to take care of things such as laundry and housekeeping, banking, shopping, using the telephone, food preparation, transportation, or taking your own medications? No 09/11/2025 8:48 AM EST Claire Arthur M, QUARRY MANAGER * Memory Question Answer Entry Date Author Do you or any of your friend s or family members have any concerns about your memory? No 09/11/2025 8:48 AM Janna Boudreaux A PRN * Hearing Question Answer Entry Date Author Do you have any problems wit h your hearing? No 09/11/2025 8:48 AM Janna Boudreaux A PRN * Difference in Weight Since Last Visit Answer Entry Date Author 0.7 09/11/2025 8:33 AM EST Jimenez, A lma * Temp (in Celsius) for KOI IV Answer Entry Date Author 36.7 09/11/2025 8:33 AM EST Jimenez, A lma * IBW/kg (Calculated) Answer Entry Date Author 52.4 09/11/2025 8:33 AM EST Jimenez, A lma * Adult Low Range Vt 6mL/kg Answer Entry Date Author 314.4 09/11/2025 8:33 AM EST Jimenez, A lma * Adult Moderate Range Vt 8mL/kg Answer Entry Date Author 419.2 09/11/2025 8:33 AM EST Jimenez, A lma * Adult High Range Vt 10mL/kg Answer Entry Date Author 524 09/11/2025 8:33 AM EST Jimenez, A lma * Pain Score Answer Entry Date Author 0 09/11/2025 8:37 AM EST Jimenez, A lma * LIA-7 Question Answer Entry Date Author Feeling Nervous, Anxious, or on Edge 0 09/11/2025 8:39 AM EST Jimenez, Shanel Not Being Able to Stop or Control Worrying 0 09/11/2025 8:39 AM EST Jimenez, Shanel Worrying too Much About Different Things 0 09/11/2025 8:39 AM EST Jimenez, Shanel Trouble Relaxing 0 09/11/2025 8:39 AM EST R kristen, Shanel Being so Restless That it is Hard to Sit Still 0 09/11/2025 8:39 AM EST Jimenez, Shanel Becoming Easily Annoyed or Irritable 0 09/11/2025 8:39 AM EST Jimenez, Shanel Feeling Afraid as if Something Awful Might Happen 0 09/11/2025 8:39 AM EST Jimenez, Shanel LIA-7 Total Score 0 09/11/2025 8:39 AM EST Tony, Shanel If you checked off any problems, how difficult have these problems made it for you to do your work, take care of things at home, or get along with other people? Not difficult at all 09/11/2025 8:39 AM EST Jimenez, Shanel * Patient Position Answer Entry Date Author Sitting 09/11/2025 8:33 AM EST Jimenez, A lma * Pain Screening Answer Entry Date Author 0-10 09/11/2025 8:37 AM EST Jimenez, A lma * C-SSRS (Screener) Question Answer Entry Date Author Is patient awake, alert, and able/willing to answer questions appropriately? Yes 09/11/2025 8:38 AM EST Shanel Malhotra 1. Wish to be (Past 1 Month) No 025 8:38 AM EST Tony Shanel 2. Non-Specific Active Suici carlitos Thoughts (Past 1 Month) No 09/11/2025 8:38 AM EST Tony Shanel 6. Suicidal Behavior (Lifetime) No 8:38 AM EST Tony Shanel documented in this encounter Miscellaneous Notes * Clinician Note [...] Never done UKY-Influenza Vaccine (1) Never done [id number] Vaccine (3 - 2024- season) 2025 UKY-Medicare [...] Breast Cancer Lung Cancer Osteoporosis Cervical Cancer [facility] Preventative Services Quick Reference Medicare Risks and [...] Never done UKY-Influenza Vaccine (1) Never done [id number]-11 Vaccine (3 - season) 2025 UKY-Medicare Annual [...] 5 years. Social History: Hobbies: Visiting with [employer] Diet: Rich in fruits, vegetables, and protein [...] this visit: Routine general medical examination at health care facility Assessment & Plan 1. Medicare [...] 12:30 PM EST Appointment [facility] [address] [place] [address] 10/12/2026 1:30 PM EST Office Visit [facility] [place] [address] [facility]nd [place] [address] Megan Bonds APRN 800 [facility] [address] [place] [address] documented as of this encounter Visit Diagnoses Diagnosis Routine general medical examination at health care facility- Primary Routine general medical examination at a health care facility Essential (primary) hypertension Unspecified essential hypertension Chronic obstructive pulmonary disease, unspecified COPD type (CMS/HCC) Anxiety and depression Gastroesophageal reflux disease without [...] documented as of this encounter Care Teams Customer Response Representative Relationship Specialty Start Date End Date Janna Arthur APRN [address] [place] [address] PCP - General Family Medicine 08/10/23 Nuria Malone MD [address] [facility] Nella [address] [address] Consulting Physician Hematology and Oncology 08/23/21 documented as of this encounter
--- OUTSIDE RECORDS SUMMARY | 2025-09-17 14:40 | XMS_ITS | Encounter Summary ---
Author Organization [facility] Address [address] [place] [address] Care Team Providers Care Passenger Screener Name Role Phone Nuria Malone MD Unavailable [phone] Janna Arthur APRN Primary Care Provider [phone] Reason for Referral * Consultation (Routine) - Authorized Specialty Diagnoses / Procedures Referred By Adam espinoza Referred To Contact Cardiology Diagnoses Syncope, unspecified syncope type Janna Arthur, LAKESHA [address] [place] [address] Phone: tel: fax: Referral ID Status Reason Start Date Expiration Date Visits Requested Visits Authorized [id number] Authorized Specialty Services Required 5 03/19/2027 1 1 * Consultation (Routine) - Authorized Specialty Diagnoses / Procedures Referred By Adam espinoza Referred To Contact Neurology Diagnoses Syncope, unspecified syncope type Dizziness and giddiness [place] [address] Phone: tel: fax: Referral ID Status Reason Start Date Expiration Date Visits Requested Visits Authorized [id number] Authorized Specialty Services Required 03/19/2027 1 1 Reason for Visit * Reason Comments Hospital Follow Up Hospital follow up. Syncope episode Sunday that sent her to the ER in [place]. Pt is still having issues with dizziness and lightheadedness. Was scheduled a follow up with cardiology. Needs referral for neurology Encounter Details Date Type Department Care Team (Late st Contact Info) Description 09/17/2025 2:40 PM EST Office Visit [facility] [address] [place] [address] Janna Arthur, CARPENTER'S ASSISTANT [address] [place] [phone] Syncope, unspecified syncope type (Primary Dx); Dizziness and giddiness; Nausea; Vertigo; Eustachian tube dysfunction, bilateral; Brain fog Social History Tobacco Use Types Packs/Day Years Used Date Smoking Tobacco: Former Cigarettes 1 24 11 988 2007 Passive Smoke Exposure: Past Smokeless Tobacco: [...] any time in the past 12 m [facility], were you homeless or living in a correction (including now)? No 09/11/2025 [facility] Utilities Answer Date Recorded In the [...] Sign Reading Time Taken Comments Blood Pressure 130/82 09/17/2025 2:40 PM EST Pulse 68 09/17/2025 2:40 PM EST Temperature 36.6 C (97.8 F) 09/17/2025 2:40 PM EST Respiratory Rate 20 09/17/2025 2:40 PM EST Oxygen Saturation 98% 09/17/2025 2:40 PM EST Inhaled Oxygen Concentration - - Weight 78.1 kg (172 lb 2.9 oz) 09/17/2025 2:40 P M EST Height 160 cm (5' 3 ) 09/17/2025 2:40 PM EST Body Mass Index 30.5 09/17/2025 2:40 PM EST documented in this encounter Functional Status * BP Answer Date of Assessment Author 130/82 09/17/2025 2:40 PM EST Holden Amandayn * Temp Answer Date of Assessment Author 97.8 09/17/2025 2:40 PM EST Holden Amandayn * Pulse Answer Date of Assessment Author 68 09/17/2025 2:40 PM EST Holden Amanda amilyn * Resp Answer Date of Assessment Author 20 09/17/2025 2:40 PM EST Holden Amandayn * SpO2 Answer Date of Assessment Author 98 09/17/2025 2:40 PM EST Holden Amanda amilyn * Height Answer Date of Assessment Author 63 09/17/2025 2:40 PM EST Holden Amanda amilyn * Weight Answer Date of Assessment Author 2754.87 09/17/2025 2:40 PM EST Holden Amandayn * BMI (Calculated) Answer Date of Assessment Author 30.6 09/17/2025 2:40 PM EST Holden Amanda amilyn * Percent Excess Weight Loss Answer Date of Assessment Author 0 09/17/2025 2:40 PM EST Holden Amanda amilyn * Total Weight Change Percent Answer Date of Assessment Author 2222 09/17/2025 2:40 PM EST Holden Amanda amilyn * Weight Change Since Preop Answer Date of Assessment Author 78.08 09/17/2025 2:40 PM EST Holden Amanda amilyn * Initial Excess Weight Answer Date of Assessment Author -52.16 09/17/2025 2:40 PM Holden Oneal * IBW in lbs (Bariatric) Answer Date of Assessment Author 115 09/17/2025 2:40 PM EST Holden Amandayn * Weight Change Since Last Visit Answer Date of Assessment Author 78.08 09/17/2025 2:40 PM Holden Onealyn * IBW in kg (Bariatric) Answer Date of Assessment Author 52.16 09/17/2025 2:40 PM Holden Onealyn * Percent of IBW Answer Date of Assessment Author 5,281.58 09/17/2025 2:40 PM Holden Onealyn * EBW (kg) Answer Date of Assessment Author 2,753.39 09/17/2025 2:40 PM Holden Onealyn * EBW (lbs) Answer Date of Assessment Author 2,747.68 09/17/2025 2:40 PM Holden Onealyn * Weight Change 24 hrs Answer Date of Assessment Author .1 09/17/2025 2:40 PM Holden Oneal * BSA (Calculated - sq m) Answer Date of Assessment Author 1.86 09/17/2025 2:40 PM Holden Onealyn * BMI (Calculated) Answer Date of Assessment Author 30.51 09/17/2025 2:40 PM Holden Onealyn * IBW/kg (Calculated) Male Answer Date of Assessment Author 56.9 09/17/2025 2:40 PM Holden Onealyn * IBW/kg (Calculated) Female Answer Date of Assessment Author 52.4 09/17/2025 2:40 PM Holden Oneal amilyn * Restart Vitals Timer Answer Date of Assessment Author Yes 09/17/2025 2:40 PM Holden Onealyn * IBW/kg (Calculated) Answer Date of Assessment Author 52.4 09/17/2025 2:40 PM Holden Oneal amilyn * Calculated C-SSRS Risk Score (Lifetime/Recent) Answer Date of Assessment Author No Risk Indicated 09/17/2025 2:47 PM Brandy Oneal * Weight in (lb) to have BMI = 25 Answer Date of Assessment Author 140.8 09/17/2025 2:40 PM Holden Oneal * BMI (Calculated) Answer Date of Assessment Author 30.6 09/17/2025 2:40 PM Holden Oneal * Percent Excess Weight Loss Answer Date of Assessment Author 0 09/17/2025 2:40 PM Holden Oneal * Weight Change Since Preop Answer Date of Assessment Author 78.1 09/17/2025 2:40 PM Holden Oneal * Initial Excess Weight Answer Date of Assessment Author -52.16 09/17/2025 2:40 PM Holden Oneal * IBW in kg (Bariatric) Answer Date of Assessment Author 52.16 09/17/2025 2:40 PM Holden Oneal * IBW in lb (Bariatric) Answer Date of Assessment Author 115 09/17/2025 2:40 PM Holden Oneal * Weight Change Since Last Visit Answer Date of Assessment Author 78.1 09/17/2025 2:40 PM Holden Oneal * Percent of IBW Answer Date of Assessment Author 149.72 09/17/2025 2:40 PM Holden Oneal * EBW (kg) Answer Date of Assessment Author 25.92 09/17/2025 2:40 PM Holden Oneal * EBW (lb) Answer Date of Assessment Author 57.18 09/17/2025 2:40 PM Holden Oneal * Difference in Weight Since Last Visit Answer Date of Assessment Author 0.1 09/17/2025 2:40 PM Holden Oneal * Temp (in Celsius) for [place] Answer Date of Assessment Author 36.6 09/17/2025 2:40 PM Holden Oneal * IBW/kg (Calculated) Answer Date of Assessment Author 52.4 09/17/2025 2:40 PM Holden Oneal * Adult Low Range Vt 6mL/kg Answer Date of Assessment Author 314.4 09/17/2025 2:40 PM Holden Oneal * Adult Moderate Range Vt 8mL/kg Answer Date of Assessment Author 419.2 09/17/2025 2:40 PM Holden Onealyn * Adult High Range Vt 10mL/kg Answer Date of Assessment Author 524 09/17/2025 2:40 PM Holden Oneal * Pain Score Answer Date of Assessment Author 0 09/17/2025 2:46 PM Holden Oneal * Vitals Timer Question Answer Date of Assessment Author Restart Vitals Timer Yes 09/17/2025 2:40 PM Lolis Brandy Robertson * Pain Screening/Additional Assessments Question Answer Date of Assessment Author Pain Screening/Assessments Pain Screening 09/17/2025 2 :46 PM Brandy Oneal * Pain Screening Answer Date of Assessment Author 0-10 09/17/2025 2:46 PM Holden Oneal * C-SSRS (Screener) Question Answer Date of Assessment Author Is patient awake, alert, and able/willing to answer questions appropriately? Yes 09/17/2025 2:47 PM Brandy Oneal 1. Wish to be (Past 1 Month) No 025 2:47 PM Brandy Oneal 2. Non-Specific Active Suici carlitos Thoughts (Past 1 Month) No 09/17/2025 2:47 PM Artem Oneal 6. Suicidal Behavior (Lifetime) No 2:47 PM Brandy Oneal * BP Answer Date of Assessment Author 130/82 09/17/2025 2:40 PM Holden Oneal * Temp Answer Date of Assessment Author 97.8 09/17/2025 2:40 PM Holden Oneal * Pulse Answer Date of Assessment Author 68 09/17/2025 2:40 PM Holden Oneal * Resp Answer Date of Assessment Author 20 09/17/2025 2:40 PM Holden Oneal * SpO2 Answer Date of Assessment Author 98 09/17/2025 2:40 PM Holden Oneal * Height Answer Date of Assessment Author 63 09/17/2025 2:40 PM Holden Oneal * Weight Answer Date of Assessment Author 2754.87 09/17/2025 2:40 PM Holden Oneal * BSA (Calculated - sq m) Answer Date of Assessment Author 1.86 09/17/2025 2:40 PM Holden Oneal * BMI (Calculated) Answer Date of Assessment Author 30.51 09/17/2025 2:40 PM Holden Oneal * Restart Vitals Timer Answer Date of Assessment Author Yes 09/17/2025 2:40 PM Holden Oneal * Calculated C-SSRS Risk Score (Lifetime/Recent) Answer Date of Assessment Author No Risk Indicated 09/17/2025 2:47 PM Brandy Oneal * Weight in (lb) to have BMI = 25 Answer Date of Assessment Author 140.8 09/17/2025 2:40 PM Holden Oneal * Pain Score Answer Date of Assessment Author 0 09/17/2025 2:46 PM Holden Oneal * C-SSRS (Screener) Question Answer Date of Assessment Author Is patient awake, alert, and able/willing to answer questions appropriately? Yes 09/17/2025 2:47 PM Brandy Oneal 1. Wish to be (Past 1 Month) No 025 2:47 PM Brandy Oneal 2. Non-Specific Active Suici carlitos Thoughts (Past 1 Month) No 09/17/2025 2:47 PM Artem Oneal 6. Suicidal Behavior (Lifetime) No 2:47 PM Brandy Oneal documented as of this encounter Mental Status * BP Answer Entry Date Author 130/82 09/17/2025 2:40 PM Holden Oneal * Temp Answer Entry Date Author 97.8 09/17/2025 2:40 PM Holden Oneal * Pulse Answer Entry Date Author 68 09/17/2025 2:40 PM Holden Oneal * Resp Answer Entry Date Author 20 09/17/2025 2:40 PM Holden Oneal * SpO2 Answer Entry Date Author 98 09/17/2025 2:40 PM Holden Oneal * Height Answer Entry Date Author 63 09/17/2025 2:40 PM Holden Oneal * Weight Answer Entry Date Author 2754.87 09/17/2025 2:40 PM Holden Oneal * BMI (Calculated) Answer Entry Date Author 30.6 09/17/2025 2:40 PM Holden Oneal * Percent Excess Weight Loss Answer Entry Date Author 0 09/17/2025 2:40 PM Holden Oneal * Total Weight Change Percent Answer Entry Date Author 2222 09/17/2025 2:40 PM Holden Oneal * Weight Change Since Preop Answer Entry Date Author 78.08 09/17/2025 2:40 PM Holden Onealyn * Initial Excess Weight Answer Entry Date Author -52.16 09/17/2025 2:40 PM Holden Oneal * IBW in lbs (Bariatric) Answer Entry Date Author 115 09/17/2025 2:40 PM Holden Onealyn * Weight Change Since Last Visit Answer Entry Date Author 78.08 09/17/2025 2:40 PM Holden Oneal * IBW in kg (Bariatric) Answer Entry Date Author 52.16 09/17/2025 2:40 PM Holden Oneal * Percent of IBW Answer Entry Date Author 5,281.58 09/17/2025 2:40 PM Holden Oneal * EBW (kg) Answer Entry Date Author 2,753.39 09/17/2025 2:40 PM Holden Oneal * EBW (lbs) Answer Entry Date Author 2,747.68 09/17/2025 2:40 PM Holden Oneal * Weight Change 24 hrs Answer Entry Date Author .1 09/17/2025 2:40 PM Holden Oneal * BSA (Calculated - sq m) Answer Entry Date Author 1.86 09/17/2025 2:40 PM Holden Oneal * BMI (Calculated) Answer Entry Date Author 30.51 09/17/2025 2:40 PM Holden Oneal * IBW/kg (Calculated) Male Answer Entry Date Author 56.9 09/17/2025 2:40 PM Holden Oneal * IBW/kg (Calculated) Female Answer Entry Date Author 52.4 09/17/2025 2:40 PM Holden Onealyn * Restart Vitals Timer Answer Entry Date Author Yes 09/17/2025 2:40 PM Holden Oneal * IBW/kg (Calculated) Answer Entry Date Author 52.4 09/17/2025 2:40 PM Holden Oneal * Calculated C-SSRS Risk Score (Lifetime/Recent) Answer Entry Date Author No Risk Indicated 09/17/2025 2:47 PM Brandy Oneal * Restart Pain Assessment Timer Answer Entry Date Author Yes 09/17/2025 2:46 PM Holden Oneal * Weight in (lb) to have BMI = 25 Answer Entry Date Author 140.8 09/17/2025 2:40 PM Holden Oneal * BMI (Calculated) Answer Entry Date Author 30.6 09/17/2025 2:40 PM Holden Oneal * Percent Excess Weight Loss Answer Entry Date Author 0 09/17/2025 2:40 PM Holden Oneal * Weight Change Since Preop Answer Entry Date Author 78.1 09/17/2025 2:40 PM Holden Oneal * Initial Excess Weight Answer Entry Date Author -52.16 09/17/2025 2:40 PM Holden Oneal * IBW in kg (Bariatric) Answer Entry Date Author 52.16 09/17/2025 2:40 PM Holden Oneal * IBW in lb (Bariatric) Answer Entry Date Author 115 09/17/2025 2:40 PM Holden Oneal * Weight Change Since Last Visit Answer Entry Date Author 78.1 09/17/2025 2:40 PM Holden Oneal * Percent of IBW Answer Entry Date Author 149.72 09/17/2025 2:40 PM Holden Oneal * EBW (kg) Answer Entry Date Author 25.92 09/17/2025 2:40 PM Holden Oneal * EBW (lb) Answer Entry Date Author 57.18 09/17/2025 2:40 PM Holden Oneal * Difference in Weight Since Last Visit Answer Entry Date Author 0.1 09/17/2025 2:40 PM Holden Oneal * Temp (in Celsius) for [place] Answer Entry Date Author 36.6 09/17/2025 2:40 PM Holden Oneal * IBW/kg (Calculated) Answer Entry Date Author 52.4 09/17/2025 2:40 PM Holden Oneal * Adult Low Range Vt 6mL/kg Answer Entry Date Author 314.4 09/17/2025 2:40 PM EST Holden Amanda * Adult Moderate Range Vt 8mL/kg Answer Entry Date Author 419.2 09/17/2025 2:40 PM Holden Onealyn * Adult High Range Vt 10mL/kg Answer Entry Date Author 524 09/17/2025 2:40 PM Holden Oneal * Pain Score Answer Entry Date Author 0 09/17/2025 2:46 PM Holden Oneal * Vitals Timer Question Answer Entry Date Author Restart Vitals Timer Yes 09/17/2025 2:40 PM E Brandy Robertson * Pain Screening Answer Entry Date Author 0-10 09/17/2025 2:46 PM Holden Oneal * C-SSRS (Screener) Question Answer Entry Date Author Is patient awake, alert, and able/willing to answer questions appropriately? Yes 09/17/2025 2:47 PM Brandy Oneal 1. Wish to be (Past 1 Month) No 025 2:47 PM Brandy Oneal 2. Non-Specific Active Suici carlitos Thoughts (Past 1 Month) No 09/17/2025 2:47 PM Artem Oneal 6. Suicidal Behavior (Lifetime) No 2:47 PM Brandy Oneal documented in this encounter Miscellaneous Notes * Progress Notes - Janna Arthur, CARPENTER'S ASSISTANT - 09/17/2025 2:40 PM EST Office Progress Note Subjective Josey Morales is a 70 y.o. female who presents for Hospital Follow Up (Hospital follow up. Syncope episode Sunday that sent her to the ER in [place]. Pt is still having issues with dizziness and lightheadedness. Was scheduled a follow up with cardiology. Needs referral for neurology ). History of Present Illness The patient is a 70-year-old female who presents for follow-up on a recent ER visit to [facility] for syncope and dizziness. She experienced an episode of lightheadedness and near syncope while preparing coffee on Sunday morning, which led to her being transported to the emergency room. She was accompanied by her husbandand daughter. Despite not having any orthostatic changes, she reported feeling incoherent and disoriented. Since the incident, she has been experiencing persistent symptoms of fogginess, shakiness, and lightheadedness. Initial nausea was present but has since subsided. Her appetite remains normal, and she has been consuming toast or oatmeal for breakfast. She reportsadequate hydration but frequent urination. She does not experience any fever, chills, ear pain, pressure, or popping sensations in her ears. She also does not report any wheezing but mentions a sensation of nasal congestion. She has a history of chronic rhinorrhea but does not believe it is relatedto her current symptoms. She has no known allergies and reports normal sleep patterns. In the ER, she was administered Ringer's lactate and prescribed medication for vertigo, which provided partial relief. A CT scan revealed no tumors, masses, stroke, or blood clots. However, there wasa mention of some abnormalities in her neck arteries. She was advised to consult a information architect hannah neurologist. Diet: Consumes toast or oatmeal for breakfast Coffee/Tea/Caffeine-containing Drinks: Drinks one or two cups of coffee daily Sleep: Reports normal sleep patterns The following sections have been reviewed and updated during this encounter: Tobacco Allergies Meds Problems Med Hx Surg Hx OB Status Fam Hx Objective Blood pressure 130/82, pulse 68, temperature 36.6 ??C (97.8 ??F), resp. rate 20, height 1.6 m (5' 3 ), weight 78.1 kg (172 lb 2.9 oz), SpO2 98%. Body mass index is 30.5 kg/m??. Physical Exam Vitals reviewed. Constitutional: General: She is not in acute distress. Appearance: Normal appearance. HENT: Right Ear: External ear normal. A middle ear effusion is present. Left Ear: External ear normal. A middle ear effusion is present. Eyes: Extraocular Movements: Extraocular movements intact. Conjunctiva/sclera: Conjunctivae normal. Cardiovascular: Rate and Rhythm: Normal rate and regular rhythm. Pulmonary: Effort: Pulmonary effort is normal. Breath sounds: Normal breath sounds. Musculoskeletal: Comments: Walking slow but steady with cane Skin: General: Skin is warm and dry. Neurological: Mental Status: She is alert and oriented to person, place, and time. Cranial Nerves: No cranial nerve deficit. Motor: Weakness present. Psychiatric: Mood and Affect: Mood normal. Behavior: Behavior normal. Thought Content: Thought content normal. Judgment: Judgment normal. Assessment/Plan Diagnoses and all orders for this visit: Syncope, unspecified syncope type - Ambulatory referral to Neurology; Future - Ambulatory referral to Cardiology; Future Dizziness and giddiness - Ambulatory referral to Neurology; Future Nausea - ondansetron ODT (Zofran-ODT) 4 MG disintegrating tablet; Dissolve 1 tablet on the tongue every 8 hours as needed for nausea or vomiting. Vertigo Eustachian tube dysfunction, bilateral - fluticasone (Flonase) 50 MCG/ACT nasal spray; Administer 1 spray into each nostril daily. Shake gently. Before first use, prime pump. After use, clean tip and replace cap. - loratadine (Claritin) 10 MG tablet; Take 1 tablet by mouth daily. Brain fog Other orders - meclizine (Antivert) 25 MG tablet; Take 1 tablet by mouth 3 times a day as needed for dizziness. Assessment & Plan 1. Vertigo: - Symptoms include lightheadedness, dizziness, and feeling like passing out. The patient has been experiencing these symptoms since the ER visit. - Physical exam findings indicate no fever, normal blood pressure, heart rate, and oxygen levels. EKG and CT scans showed no tumors, masses, stroke, or blood clots. - A referral to a information architect and neurologist will be made to exclude other potential causes. The patient has been advised to engage in physical therapy or home exercises to restore normalcy if the vertigo is the root cause. Dr. Neena Hamlin's YouTube channel was recommended for exercises to reposition the canaliths in the inner ear. - A prescription for meclizine has been provided. The patient has also been advised to use Flonase unless she has glaucoma. A referral to neurology and cardiology for evaluation to be safe has been entered. We reviewed all ER notes and labs and imaging Verbal consent was obtained to use ambient listening technology to assist in the documentation of the encounter: yes documented in this encounter Plan of Treatment Upcoming Encounters Date Type Department Care Team (Late st Contact Info) Description 10/12/2026 12:30 PM EST Appointment [facility] Fausto Griggs [facility] [address] [place] [address] 10/12/2026 1:30 PM EST Office Visit [facility] [address] [place] [address] Megan Bonds, CARPENTER'S ASSISTANT [address] Nella Griggs [facility] [address] [place] [address] Scheduled Referrals Name Type Priority Associated Diagnoses Order Schedule Ambulatory referral to Neurology Outpatient Referral Routine Syncope, unspecified syncope type Dizziness and giddiness 1 Occurrences starting 09/17/2025 until 03/21/2027 Ambulatory referral to Cardiology Outpatient Referral Routine Syncope, unspecified syncope type 1 Occurrences starting 09/17/2025 until 03/21/2027 documented as of this encounter Visit Diagnoses Diagnosis Syncope, unspecified syncope type- Primary Dizziness and giddiness Nausea Nausea alone Vertigo Dizziness and giddiness Eustachian tube dysfunction, bilateral Brain fog documented in this encounter Additional Health Concerns Assessment Noted Time PHQ-9 Depression Total Score: 0 09/11/20 25 8:38 AM EST A fall risk assessment has been complete d for the patient 09/17/2025 2:47 PM EST A Body Mass Index follow-up plan has been documented for the patient 09/17/2025 3:15 PM EST documented as of this encounter Care Teams Passenger Screener Relationship Specialty Start Date End Date Janna Arthur, CARPENTER'S ASSISTANT [address] [place] [id number] PCP - General Family Medicine 08/10/23 Nuria Malone MD [address] Nella Griggs [facility] [address] [place] [phone] Consulting Physician Hematology and Oncology 08/23/21 documented as of this encounter
--- OUTSIDE RECORDS SUMMARY | 2025-09-22 13:23 | XMS_ITS | Encounter Summary ---
Author Organization [facility] Address [address] [place] [address] Care Team Providers Care Email Engineer Name Role Phone Nuria Malone MD Unavailable [phone] Janna Arthur APRN Primary Care Provider [phone] Encounter Details Date Type Department Care Team (Latest Contact Info) Description 09/22/2025 1:23 PM EST - 09/22/2025 11:59 PM [facility] Hospital Encounter [facility] Breast Care Center Comprehensive [facility] [address] [phone] Screening mammogram, encounter for Discharge Disposition: Home or Self Care Social History Tobacco Use Types Packs/Day Years Used Date Smoking Tobacco: Former Cigarettes 2007 Passive Smoke Exposure: Past Smokeless Tobacco: [...] Date Recorded Patient Health Questionnaire-2 Score 0 09/22/2025 Exercise Vital Sign Answer Date Recorde d On average, how many days pe r week do you engage in moderate to strenuous exercise (like a brisk walk)? 0 days 08/04/2024 On average, how many minutes do you engage in exercise at this level? 0 min 08/04/2024 PHQ-9 Answer Date Recorded Patient Health Questionnaire-9 Score 0 09/22/2025 Humiliation, Afraid, Rape, and Kick questionnair e [...] any time in the past 12 m [facility], were you homeless or living in a snf (including now)? No 09/11/2025 [facility] Utilities Answer Date Recorded In the [...] Sign Reading Time Taken Comments Blood Pressure - - Pulse - - Temperature - - Respiratory Rate - - Oxygen Saturation - - Inhaled Oxygen Concentration - - Weight 78 kg (172 lb) 09/22/2025 1:28 PM EST Height 160 cm (5' 3 ) 09/22/2025 1:28 PM EST Body Mass Index 30.47 09/22/2025 1:28 PM EST documented in this encounter Functional Status * BMI (Calculated) Answer Date of Assessment Author 30.5 09/22/2025 1:28 PM EST Constance Lyon * Percent Excess Weight Loss Answer Date of Assessment Author 0 09/22/2025 1:28 PM EST Constance Lyon * Total Weight Change Percent Answer Date of Assessment Author 2222 09/22/2025 1:28 PM EST Constance Lyon * Weight Change Since Preop Answer Date of Assessment Author 78 09/22/2025 1:28 PM EST Constance Lyon * Initial Excess Weight Answer Date of Assessment Author -52.16 09/22/2025 1:28 PM EST Constance Lyon * IBW in lbs (Bariatric) Answer Date of Assessment Author 115 09/22/2025 1:28 PM EST Constance Lyon * Weight Change Since Last Visit Answer Date of Assessment Author 78 09/22/2025 1:28 PM EST Constance Lyon * IBW in kg (Bariatric) Answer Date of Assessment Author 52.16 09/22/2025 1:28 PM EST Constance Lyon * Percent of IBW Answer Date of Assessment Author 5,276.07 09/22/2025 1:28 PM EST Constance Lyon * EBW (kg) Answer Date of Assessment Author 2,750.52 09/22/2025 1:28 PM EST Camron, Constance * EBW (lbs) Answer Date of Assessment Author 2,744.81 09/22/2025 1:28 PM EST Camron, Constance * Weight Change 24 hrs Answer Date of Assessment Author -.081 09/22/2025 1:28 PM EST Camron, Constance * BSA (Calculated - sq m) Answer Date of Assessment Author 1.86 09/22/2025 1:28 PM EST Camron, Constance * BMI (Calculated) Answer Date of Assessment Author 30.48 09/22/2025 1:28 PM EST Camron, Constance * IBW/kg (Calculated) Male Answer Date of Assessment Author 56.9 09/22/2025 1:28 PM EST Camron, Constance * IBW/kg (Calculated) Female Answer Date of Assessment Author 52.4 09/22/2025 1:28 PM EST Camron, Constance * IBW/kg (Calculated) Answer Date of Assessment Author 52.4 09/22/2025 1:28 PM EST Camron, Constance * Weight in (lb) to have BMI = 25 Answer Date of Assessment Author 140.8 09/22/2025 1:28 PM EST Camron, Constance * BMI (Calculated) Answer Date of Assessment Author 30.5 09/22/2025 1:28 PM EST Camron, Constance * Percent Excess Weight Loss Answer Date of Assessment Author 0 09/22/2025 1:28 PM EST Camron, Constance * Weight Change Since Preop Answer Date of Assessment Author 78.02 09/22/2025 1:28 PM EST Camron, Constance * Initial Excess Weight Answer Date of Assessment Author -52.16 09/22/2025 1:28 PM EST Camron, Constance * IBW in kg (Bariatric) Answer Date of Assessment Author 52.16 09/22/2025 1:28 PM EST Camron, Constance * IBW in lb (Bariatric) Answer Date of Assessment Author 115 09/22/2025 1:28 PM EST Camron, Constance * Weight Change Since Last Visit Answer Date of Assessment Author 78.02 09/22/2025 1:28 PM EST Camron, Constance * Percent of IBW Answer Date of Assessment Author 149.57 09/22/2025 1:28 PM EST Camron, Constance * EBW (kg) Answer Date of Assessment Author 25.84 09/22/2025 1:28 PM EST Camron, Constance * EBW (lb) Answer Date of Assessment Author 57 09/22/2025 1:28 PM EST Camron, Constance * Difference in Weight Since Last Visit Answer Date of Assessment Author -0.08 09/22/2025 1:28 PM EST Camron, Constance * IBW/kg (Calculated) Answer Date of Assessment Author 52.4 09/22/2025 1:28 PM EST Camron, Constance * Adult Low Range Vt 6mL/kg Answer Date of Assessment Author 314.4 09/22/2025 1:28 PM EST Camron, Constance * Adult Moderate Range Vt 8mL/kg Answer Date of Assessment Author 419.2 09/22/2025 1:28 PM EST Camron, Constance * Adult High Range Vt 10mL/kg Answer Date of Assessment Author 524 09/22/2025 1:28 PM EST Camron, Constance * Enter Height and Weight Question Answer Date of Assessment Author Height 63 09/22/2025 1:28 PM EST Stew art, Constance Weight 2752 09/22/2025 1:28 PM EST Stewa rt, Constance * BSA (Calculated - sq m) Answer Date of Assessment Author 1.86 09/22/2025 1:28 PM EST Camron, Constance * BMI (Calculated) Answer Date of Assessment Author 30.48 09/22/2025 1:28 PM EST Camron Constance * Weight in (lb) to have BMI = 25 Answer Date of Assessment Author 140.8 09/22/2025 1:28 PM EST Camron, Constance * Enter Height and Weight Question Answer Date of Assessment Author Height 63 09/22/2025 1:28 PM EST Stewa rt, Constance Weight 2752 09/22/2025 1:28 PM EST Stewa rt, Constance documented as of this encounter Mental Status * BMI (Calculated) Answer Entry Date Author 30.5 09/22/2025 1:28 PM EST CamronMigdaliaConstance * Percent Excess Weight Loss Answer Entry Date Author 0 09/22/2025 1:28 PM EST Camron, Constance * Total Weight Change Percent Answer Entry Date Author 222109/22/2025 1:28 PM EST Camron, Constance * Weight Change Since Preop Answer Entry Date Author 78 09/22/2025 1:28 PM EST Camron, Constance * Initial Excess Weight Answer Entry Date Author -52.16 09/22/2025 1:28 PM EST Camron, Constance * IBW in lbs (Bariatric) Answer Entry Date Author 115 09/22/2025 1:28 PM EST Camron, Constance * Weight Change Since Last Visit Answer Entry Date Author 78 09/22/2025 1:28 PM EST Camron, Constance * IBW in kg (Bariatric) Answer Entry Date Author 52.16 09/22/2025 1:28 PM EST Camron, Constance * Percent of IBW Answer Entry Date Author 5,276.07 09/22/2025 1:28 PM EST Camron, Constance * EBW (kg) Answer Entry Date Author 2,750.52 09/22/2025 1:28 PM EST Camron, Constance * EBW (lbs) Answer Entry Date Author 2,744.81 09/22/2025 1:28 PM EST Camron, Constance * Weight Change 24 hrs Answer Entry Date Author -.081 09/22/2025 1:28 PM EST Camron, Constance * BSA (Calculated - sq m) Answer Entry Date Author 1.86 09/22/2025 1:28 PM EST Camron, Constance * BMI (Calculated) Answer Entry Date Author 30.48 09/22/2025 1:28 PM EST Camron, Constance * IBW/kg (Calculated) Male Answer Entry Date Author 56.9 09/22/2025 1:28 PM EST Camron, Constance * IBW/kg (Calculated) Female Answer Entry Date Author 52.4 09/22/2025 1:28 PM EST Camron, Constance * IBW/kg (Calculated) Answer Entry Date Author 52.4 09/22/2025 1:28 PM EST Camron, Constance * Weight in (lb) to have BMI = 25 Answer Entry Date Author 140.8 09/22/2025 1:28 PM EST Camron, Constance * BMI (Calculated) Answer Entry Date Author 30.5 09/22/2025 1:28 PM EST Camron, Constance * Percent Excess Weight Loss Answer Entry Date Author 0 09/22/2025 1:28 PM EST Migdalia Lyonorah * Weight Change Since Preop Answer Entry Date Author 78.02 09/22/2025 1:28 PM EST Migdalia Lyonorah * Initial Excess Weight Answer Entry Date Author -52.16 09/22/2025 1:28 PM EST Migdalia Lyonorah * IBW in kg (Bariatric) Answer Entry Date Author 52.16 09/22/2025 1:28 PM EST Migdalia Lyonorah * IBW in lb (Bariatric) Answer Entry Date Author 115 09/22/2025 1:28 PM EST Migdalia Lyonorah * Weight Change Since Last Visit Answer Entry Date Author 78.02 09/22/2025 1:28 PM EST Migdalia Lyonorah * Percent of IBW Answer Entry Date Author 149.57 09/22/2025 1:28 PM EST Migdalia Lyonorah * EBW (kg) Answer Entry Date Author 25.84 09/22/2025 1:28 PM EST Constance Lyon * EBW (lb) Answer Entry Date Author 57 09/22/2025 1:28 PM EST Migdalia Lyonorah * Difference in Weight Since Last Visit Answer Entry Date Author -0.08 09/22/2025 1:28 PM EST Migdalia Lyonorah * IBW/kg (Calculated) Answer Entry Date Author 52.4 09/22/2025 1:28 PM EST Migdalia Lyonorah * Adult Low Range Vt 6mL/kg Answer Entry Date Author 314.4 09/22/2025 1:28 PM EST Constance Lyon * Adult Moderate Range Vt 8mL/kg Answer Entry Date Author 419.2 09/22/2025 1:28 PM EST Migdalia Lyonorah * Adult High Range Vt 10mL/kg Answer Entry Date Author 524 09/22/2025 1:28 PM EST Migdalia Lyonorah * Enter Height and Weight Question Answer Entry Date Author Height 63 09/22/2025 1:28 PM EST Stewa rtConstance Weight 2752 09/22/2025 1:28 PM EST Stewa rtConstance documented in this encounter Medications at Time of Discharge albuterol 1.25 MG/3ML nebulizer solutionIndications :Chronic obstructive pulmonary disease, unspecified COPD type (CMS/HCC) Take 3 mL by nebulization every 4 hours as needed for wheezing. 360 mL 11 5 budesonide-formoter ol (Symbicort) 160-4.5 MCG/ACT inhaler Inhale 2 puffs 2 times a day. Rinse mouth with water after use to reduce aftertaste and incidence of candidiasis. Do not swallow. celecoxib (CeleBREX) 200 MG capsule Take 1 capsule (200 mg) by mouth 1 (one) time each day. 2 Cranberry (AZO Cranberry Gummies) 250 MG chewable tablet 2 tab(s) orally once a day FLUoxetine (PROzac) 20 MG capsuleIndications: Anxiety and depression Take 1 capsule by mouth daily. 90 capsule 5 fluticasone (Flonase) 50 MCG/ACT nasal sprayIndications:Eu stachian tube dysfunction, bilateral Administer 1 spray into each nostril daily. Shake gently. Before first use, prime pump. After use, clean tip and replace cap. 16 g 12 5 Fluticasone Furoate-Vilanterol (Breo Ellipta) 100-25 MCG/ACT aerosol powder Inhale 1 Inhalation 1 (one) time each day. 60 each 3 4 lisinopril 20 MG tabletIndications:E ssential (primary) hypertension Take 1 tablet by mouth daily. 90 tablet 3 5 loratadine (Claritin) 10 MG tabletIndications:E ustachian tube dysfunction, bilateral Take 1 tablet by mouth daily. 30 tablet 11 5 meclizine (Antivert) 25 MG tablet Take 1 tablet by mouth 3 times a day as needed for dizziness. 30 tablet 2 5 omeprazole (PriLOSEC) [address] capsuleIndications: Gastroesophageal reflux disease without esophagitis Take 1 capsule by mouth daily. Do not crush or chew. 90 capsule 3 5 ondansetron ODT (Zofran-ODT) 4 MG disintegrating tabletIndications:N ausea Dissolve 1 tablet on the tongue every 8 hours as needed for nausea or vomiting. 20 tablet 3 5 Spacer/Aero-Holding Chambers (E-Z Spacer) inhaler use as directed with dulera 7 tiotropium (Spiriva HandiHaler) 18 MCG inhalation capsuleIndications: Chronic obstructive pulmonary disease, unspecified COPD type (CMS/HCC) Place 1 capsule (18 mcg) into inhaler and inhale 1 (one) time each day. 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 90 tablet 3 5 09/23/20 25 documented as of this encounter Plan of Treatment Upcoming Encounters Date Type Department Care Team (Late st Contact Info) Description 10/12/2026 12:30 PM EST Appointment [facility] Breast Care Center Comprehensive Breast Care Center [place] [address] Nella [address] [facility] [address] [place] [address] 10/12/2026 1:30 PM EST Office Visit [facility] [place] [address] [facility]nd [place] [address] Megan Bonds, ENVIRONMENTAL HEALTH SAFETY MANAGER [address] [facility] [address] [place] [address] documented as of this encounter Procedures Procedure Name Priority Date/Time Associated Diagnosis Comments MAMMOGRAPHY BREAST SCREENING TOMOSYNTHESIS LEFT Routine 09/22/2025 1:47 PM EST Screening mammogram, encounter for documented in this encounter Results * Mammography Breast Screening Tomosynthesis Left (09/22/2025 1:47 PM EST) Anatomical Region Laterality Modality Breast Left Mammography Impressions 09/22/2025 2:13 PM EST No mammographic evidence of malignancy. BI-RADS CATEGORY: Left: 2 - Benign Overall: 2 - Benign RECOMMENDATION: - Routine Screening Mammogram in 1 Year. Patient Lifetime Risk Score of Breast Malignancy: A risk score has not been calculated for this patient. This risk assessment is calculated using the Tiara Risk Assessment model which may underestimate the lifetime risk of breast malignancy. COMMUNICATION: Computer-aided detection (CAD) and tomosynthesis were utilized by the radiologist in the interpretation of this examination. The results and recommendations will be sent to the patient in a printed lay language version of the imaging report. Narrative 09/22/2025 2:13 PM EST EXAM: Mammography Breast Screening with Tomosynthesis REASON FOR EXAM: Screening Mammogram HISTORY: Patient is 70 y.o. Hormone history includes control (4 years) and other (Anastrozole). Surgical and procedural history include right breast biopsy, 07/2020 (ultrasound core-[facility]); right mastectomy, 08/2020; hysterectomy (Hysterectomy from [facility]); and hysterectomy (Hysterectomy from [facility] Medical history includes breast cancer. COMPARISON STUDIES: Compared to: 08/23/2021 Mammography Breast Diagnostic Tomosynthesis Left at [facility] 08/28/2022 Mammography Breast Diagnostic Tomosynthesis Left at [facility] 08/29/2023 Mammography Breast Diagnostic Tomosynthesis Left at [facility] 09/01/2024 Mammography Breast Diagnostic Tomosynthesis Left at [facility] BREAST COMPOSITION: The breasts are heterogeneously dense, which may obscure small masses. FINDINGS: There are benign appearing calcifications present in the left breast. There is no evidence of suspicious masses, calcifications, or other abnormal findings. us Nuria Malone MD IMG BI PROCEDURES Final Resul t documented in this encounter Visit Diagnoses Diagnosis Screening mammogram, encounter for documented in this encounter Additional Health Concerns Assessment Noted Time PHQ-9 Depression Total Score: 0 09/22/20 25 3:03 PM EST A fall risk assessment has been complete d for the patient 09/22/2025 3:08 PM EST A Body Mass Index follow-up plan has been documented for the patient 09/17/2025 3:15 PM EST documented as of this encounter Care Teams Email Engineer Relationship Specialty Start Date End Date Janna Arthur APRN [address] [place] [address] PCP - General Family Medicine 08/10/23 Nuria Malone MD [address] [facility] Nella Gr[address] [address] Consulting Physician Hematology and Oncology 08/23/21 documented as of this encounter
--- OUTSIDE RECORDS SUMMARY | 2025-09-22 15:00 | XMS_ITS | Encounter Summary ---
Author Organization [facility] Address [address] [place] [address] Care Team Providers Care Precision Assembler Bench Name Role Phone Nuria Malone MD Unavailable [phone] Janna Arthur APRN Primary Care Provider [phone] Encounter Details Date Type Department Care Team ([facility] st Contact Info) Description 09/22/2025 3:00 PM EST Office Visit [facility] [address] [place] [address] Lynda Espino, ALBA [address] [place] [id number] Malignant neoplasm of right breast in female, estrogen receptor positive, unspecified site of breast (Primary Dx); Encounter for screening mammogram for malignant neoplasm of breast; Encounter for monitoring aromatase inhibitor therapy Social History Tobacco Use Types Packs/Day Years [...] time in the past 12 m [facility], were you homeless or living in a alf (including now)? No 09/11/2025 [facility] Utilities Answer Date Recorded In the past 12 months has th e Eligible, gas, oil, or water company threatened to [...] Sign Reading Time Taken Comments Blood Pressure 132/87 09/22/2025 3:09 PM EST Pulse 52 09/22/2025 3:09 PM EST Temperature 36.7 C (98.1 F) 09/22/2025 3:09 PM EST Respiratory Rate 18 09/22/2025 3:09 PM EST Oxygen Saturation 95% 09/22/2025 3:09 PM EST Inhaled Oxygen Concentration - - Weight 78 kg (171 lb 15.3 oz) 09/22/2025 3:09 PM EST Height 160 cm (5' 3 ) 09/22/2025 3:09 PM EST Body Mass Index 30.46 09/22/2025 3:09 PM EST documented in this encounter Functional Status * BP Answer Date of Assessment Author 132/87 09/22/2025 3:09 PM EST Braga, Ab igayle * Temp Answer Date of Assessment Author 98.1 09/22/2025 3:09 PM EST Braga, Ab igayle * Pulse Answer Date of Assessment Author 52 09/22/2025 3:09 PM EST Braga, Ab igayle * Resp Answer Date of Assessment Author 18 09/22/2025 3:09 PM EST Braga, Ab igayle * SpO2 Answer Date of Assessment Author 95 09/22/2025 3:09 PM EST Braga, Ab igayle * Height Answer Date of Assessment Author 63 09/22/2025 3:09 PM EST Braga, Ab igayle * Weight Answer Date of Assessment Author 2751.34 09/22/2025 3:09 PM EST Braga, Ab igayle * BMI (Calculated) Answer Date of Assessment Author 30.5 09/22/2025 3:09 PM EST Braga, Ab igayle * Percent Excess Weight Loss Answer Date of Assessment Author 0 09/22/2025 3:09 PM EST Braga, Ab igayle * Total Weight Change Percent Answer Date of Assessment Author 2222 09/22/2025 3:09 PM EST Braga, Ab igayle * Weight Change Since Preop Answer Date of Assessment Author 77.98 09/22/2025 3:09 PM EST Braga, Ab igayle * Initial Excess Weight Answer Date of Assessment Author -52.16 09/22/2025 3:09 PM EST Braga, Ab igayle * IBW in lbs (Bariatric) Answer Date of Assessment Author 115 09/22/2025 3:09 PM EST Braga, Ab igayle * Weight Change Since Last Visit Answer Date of Assessment Author 77.98 09/22/2025 3:09 PM EST Braga, Ab igayle * IBW in kg (Bariatric) Answer Date of Assessment Author 52.16 09/22/2025 3:09 PM EST Braga, Ab igayle * Percent of IBW Answer Date of Assessment Author 5,274.81 09/22/2025 3:09 PM EST Braga, Ab igayle * EBW (kg) Answer Date of Assessment Author 2,749.86 09/22/2025 3:09 PM EST Braga, Ab igayle * EBW (lbs) Answer Date of Assessment Author 2,744.15 09/22/2025 3:09 PM EST Braga, Ab igayle * Distress Thermometer Score Question Answer Date of Assessment Author Appointment Type Initial consult 09/22/2025 3:04 PM ES T Braga, Sydnee Based on the past week, susan mckeon select the number that best describes how much distress you have had. 0 being none and 10 being the most extreme. 7 09/22/2025 3:04 PM EST Braga, Lin hudson * Practical Concerns Question Answer Date of Assessment Author Taking care of myself 0 09/22/2025 3:04 PM EST Braga, Sydnee Housing 0 09/22/2025 3:04 PM EST Braga , Sydnee Finances 0 09/22/2025 3:04 PM EST Braga , Sydnee Transportation 0 09/22/2025 3:04 PM EST Troy ry, Sydnee Work 0 09/22/2025 3:04 PM EST Braga , Sydnee Treatment Decisions 0 09/22/2025 3:04 PM ES T Braga, Sydnee Taking care of others 0 09/22/2025 3:04 PM EST Braga, Sydnee School No 09/22/2025 3:04 PM EST Braga , Sydnee Insurance 0 09/22/2025 3:04 PM EST Braga , Sydnee child care attendant school 0 09/22/2025 3:04 PM EST Braga , Sydnee Having enough food 0 09/22/2025 3:04 PM EST Braga, Sydnee Access to medicine 0 09/22/2025 3:04 PM EST Braga, Sydnee * Social Concerns Question Answer Date of Assessment Author Relationship with children 0 09/22/2025 3:0 4 PM EST Braga, Sydnee Relationship with spouse or partner 0 09/22 3:04 PM EST Braga, Sydnee Ability to have children 0 09/22/2025 3:04 PM EST Braga, Sydnee Relationship with family members 0 09/22/20 3:04 PM EST Braga, Sydnee Communication with health care team 0 09/22 3:04 PM EST Braga, Sydnee Relationship with friends or coworkers 0 3:04 PM EST Braga, Sydnee Prejudice or discrimination 0 09/22/2025 3: 04 PM EST Braga, Sydnee * Emotional Concerns Question Answer Date of Assessment Author Sadness or Depression 0 09/22/2025 3:04 PM EST Braga, Sydnee Fear 0 09/22/2025 3:04 PM EST Braga , Sydnee Worry or anxiety 0 09/22/2025 3:04 PM EST B erry, Sydnee Loss of interest or enjoyment 0 09/22/2025 3:04 PM EST Braga, Sydnee Grief or loss 0 09/22/2025 3:04 PM EST Berr y, Sydnee Loneliness 0 09/22/2025 3:04 PM EST Braga , Sydnee Anger 0 09/22/2025 3:04 PM EST Braga , Sydnee Changes in appearance 0 09/22/2025 3:04 PM EST Braga, Sydnee Feelings of worthlessness or being a burden 0 09/22/2025 3:04 PM EST Braga, Sydnee * Spiritual/Hindu Concerns Question Answer Date of Assessment Author Sense of meaning or purpose 0 09/22/2025 3: 04 PM EST Braga, Sydnee Change in tereza or beliefs 0 09/22/2025 3:0 4 PM EST Braga, Sydnee , dying or afterlife 0 09/22/2025 3:04 PM EST Braga, Sydnee Conflict between beliefs and cancer treatments 0 09/22/2025 3:04 PM EST Braga, Sydnee Relationship with the sacred 0 09/22/2025 3 :04 PM EST Braga, Sydnee Ritual or dietary needs 0 09/22/2025 3:04 P M EST Braga, Sydnee * Physical Concerns Question Answer Date of Assessment Author Changes in eating 0 09/22/2025 3:04 PM EST Braga, Sydnee Fatigue 0 09/22/2025 3:04 PM EST Braga , Sydnee Memory/Concentration 0 09/22/2025 3:[address] Braga, Sydnee Pain 1 09/22/2025 3:04 PM EST Berr y, Sydnee Sexual health 0 09/22/2025 3:04 PM EST Berr y, Sydnee Sleep 0 09/22/2025 3:04 PM EST Braga , Sydnee Substance use 0 09/22/2025 3:04 PM EST Berr y, Sydnee Tobacco use 0 09/22/2025 3:04 PM EST Braga , Sydnee Loss or change of physical abilities 0 09/05 3:04 PM EST Braga, Sydnee * Weight Change 24 hrs Answer Date of Assessment Author -.1 09/22/2025 3:09 PM EST Braga, Ab igayle * Depression Screening Question Answer Date of Assessment Author Will the patient answer the depression risk questions? Yes 09/22/2025 3:03 PM EST Braga, Sydnee * BSA (Calculated - sq m) Answer Date of Assessment Author 1.86 09/22/2025 3:09 PM EST Braga, Ab igayle * BMI (Calculated) Answer Date of Assessment Author 30.47 09/22/2025 3:09 PM EST Braga, Ab igayle * BP Location Answer Date of Assessment Author Left arm 09/22/2025 3:09 PM EST Braga, Ab igayle * IBW/kg (Calculated) Male Answer Date of Assessment Author 56.9 09/22/2025 3:09 PM EST Braga, Ab igayle * IBW/kg (Calculated) Female Answer Date of Assessment Author 52.4 09/22/2025 3:09 PM EST Braga, Ab igayle * Restart Vitals Timer Answer Date of Assessment Author Yes 09/22/2025 3:09 PM EST Braga, Ab igayle * IBW/kg (Calculated) Answer Date of Assessment Author 52.4 09/22/2025 3:09 PM EST Braga, Ab igayle * Over the past 2 weeks, how often have you been bothered by any of the following problems? Question Answer Date of Assessment Author Little interest or pleasure in doing things Not at all 09/22/2025 3:03 PM EST Braga, Sydnee Feeling down, depressed, or hopeless Not at all 09/22/2025 3:03 PM EST Braga, Sydnee Patient Health Questionnaire -2 Score 0 09/22/2025 3:03 PM EST Braga, Sydnee * Over the past 2 weeks, how often have you been bothered by any of the following problems? Question Answer Date of Assessment Author Trouble falling or staying a sleep, or sleeping too much Not at all 09/22/2025 3:03 PM EST Braga, Sydnee Feeling tired or having zoila le energy Not at all 09/22/2025 3:03 PM EST Braga, Sydnee Poor appetite or overeating Not at all 09/22/2025 3: 03 PM EST Braga, Sydnee Feeling bad about yourself - or that you are a failure or have let yourself or your family down Not at all 09/22/2025 3:03 PM EST Braga, A bigayle Trouble concentrating on thi ngs, such as reading the newspaper or watching television Not at all 09/22/2025 3:03 PM EST Braga, Sydnee Moving or speaking so slowly that other people could have noticed. Or the opposite - being so fidgety or restless that you have been moving around a lot more than usual Not at all 09/22/2025 3:03 PM EST Braga, A bigayle Thoughts that you would be b ron off or hurting yourself in some way Not at all 09/22/2025 3:03 PM EST Braga, Sydnee Patient Health Questionnaire -9 Score 0 09/22/2025 3:03 PM EST Braga, Sydnee * How difficult have these problems made it for you to do your work, take care of things at home, or get along with other people? Answer Date of Assessment Author Not difficult at all 09/22/2025 3:03 PM EST Berr y, Sydnee * Weight in (lb) to have BMI = 25 Answer Date of Assessment Author 140.8 09/22/2025 3:09 PM EST Braga, Ab igayle * BMI (Calculated) Answer Date of Assessment Author 30.5 09/22/2025 3:09 PM EST Barga, Ab igayle * Percent Excess Weight Loss Answer Date of Assessment Author 0 09/22/2025 3:09 PM EST Braga, Ab igayle * Weight Change Since Preop Answer Date of Assessment Author 78 09/22/2025 3:09 PM EST Braga, Ab igayle * Initial Excess Weight Answer Date of Assessment Author -52.16 09/22/2025 3:09 PM EST Braga, Ab igayle * IBW in kg (Bariatric) Answer Date of Assessment Author 52.16 09/22/2025 3:09 PM EST Braga, Ab igayle * IBW in lb (Bariatric) Answer Date of Assessment Author 115 09/22/2025 3:09 PM EST Braga, Ab igayle * Weight Change Since Last Visit Answer Date of Assessment Author -0.02 09/22/2025 3:09 PM EST Braga, Ab igayle * Percent of IBW Answer Date of Assessment Author 149.53 09/22/2025 3:09 PM EST Braga, Ab igayle * EBW (kg) Answer Date of Assessment Author 25.82 09/22/2025 3:09 PM EST Braga, Ab igayle * EBW (lb) Answer Date of Assessment Author 56.96 09/22/2025 3:09 PM EST Braga, Ab igayle * Difference in Weight Since Last Visit Answer Date of Assessment Author -0.02 09/22/2025 3:09 PM EST Braga, Ab igayle * Temp (in Celsius) for [place] IV Answer Date of Assessment Author 36.7 09/22/2025 3:09 PM EST Braga, Ab igayle * IBW/kg (Calculated) Answer Date of Assessment Author 52.4 09/22/2025 3:09 PM EST Braga, Ab igayle * Adult Low Range Vt 6mL/kg Answer Date of Assessment Author 314.4 09/22/2025 3:09 PM EST Braga, Ab igayle * Adult Moderate Range Vt 8mL/kg Answer Date of Assessment Author 419.2 09/22/2025 3:09 PM EST Braga, Ab igayle * Adult High Range Vt 10mL/kg Answer Date of Assessment Author 524 09/22/2025 3:09 PM EST Braga, Ab igayle * Vitals Timer Question Answer Date of Assessment Author Restart Vitals Timer Yes 09/22/2025 3:[address] Braga, Sydnee * Patient Position Answer Date of Assessment Author Sitting 09/22/2025 3:09 PM EST Braga, Ab igayle * BP Answer Date of Assessment Author 132/87 09/22/2025 3:09 PM EST Braga, Ab igayle * Temp Answer Date of Assessment Author 98.1 09/22/2025 3:09 PM EST Braga, Ab igayle * Pulse Answer Date of Assessment Author 52 09/22/2025 3:09 PM EST Braga, Ab igayle * Resp Answer Date of Assessment Author 18 09/22/2025 3:09 PM EST Braga, Ab igayle * SpO2 Answer Date of Assessment Author 95 09/22/2025 3:09 PM EST Braga, Ab igayle * Height Answer Date of Assessment Author 63 09/22/2025 3:09 PM EST Braga, Ab igayle * Weight Answer Date of Assessment Author 2751.34 09/22/2025 3:09 PM EST Braga, Ab igayle * Distress Thermometer Score Question Answer Date of Assessment Author Appointment Type Initial consult 09/22/2025 3:04 PM ES T Braga, Sydnee Based on the past week, plea se select the number that best describes how much distress you have had. 0 being none and 10 being the most extreme. 7 09/22/2025 3:04 PM EST Braga, Lin hudson * Practical Concerns Question Answer Date of Assessment Author Taking care of myself 0 09/22/2025 3:04 PM EST Braga, Sydnee Housing 0 09/22/2025 3:04 PM EST Braga , Sydnee Finances 0 09/22/2025 3:04 PM EST Braga , Sydnee Transportation 0 09/22/2025 3:04 PM EST Rtoy ry, Sydnee Work 0 09/22/2025 3:04 PM EST Braga , Sydnee Treatment Decisions 0 09/22/2025 3:04 PM ES T Braga, Sydnee Taking care of others 0 09/22/2025 3:04 PM EST Braga, Sydnee School No 09/22/2025 3:04 PM EST Braga , Sydnee Insurance 0 09/22/2025 3:04 PM EST Braga , Sydnee child care attendant school 0 09/22/2025 3:04 PM EST Braga , Sydnee Having enough food 0 09/22/2025 3:04 PM EST Braga, Sydnee Access to medicine 0 09/22/2025 3:04 PM EST Braga, Sydnee * Social Concerns Question Answer Date of Assessment Author Relationship with children 0 09/22/2025 3:0 4 PM EST Braga, Sydnee Relationship with spouse or partner 0 09/22 3:04 PM EST Braga, Sydnee Ability to have children 0 09/22/2025 3:04 PM EST Braga, Sydnee Relationship with family members 0 09/22/20 25 3:04 PM EST Braga, Sydnee Communication with health care team 0 09/22 3:04 PM EST Braga, Sydnee Relationship with friends or coworkers 0 3:04 PM EST Braga, Sydnee Prejudice or discrimination 0 09/22/2025 3: 04 PM EST Braga, Sydnee * Emotional Concerns Question Answer Date of Assessment Author Sadness or Depression 0 09/22/2025 3:04 PM EST Braga, Sydnee Fear 0 09/22/2025 3:04 PM EST Braga , Sydnee Worry or anxiety 0 09/22/2025 3:04 PM EST B erry, Sydnee Loss of interest or enjoyment 0 09/22/2025 3:04 PM EST Braga, Sydnee Grief or loss 0 09/22/2025 3:04 PM EST Berr y, Sydnee Loneliness 0 09/22/2025 3:04 PM EST Braga , Sydnee Anger 0 09/22/2025 3:04 PM EST Braga , Sydnee Changes in appearance 0 09/22/2025 3:04 PM EST Braga, Sydnee Feelings of worthlessness or being a burden 0 09/22/2025 3:04 PM EST Braga, Sydnee * Spiritual/Hindu Concerns Question Answer Date of Assessment Author Sense of meaning or purpose 0 09/22/2025 3: 04 PM EST Braga, Sydnee Change in tereza or beliefs 0 09/22/2025 3:0 4 PM EST Braga, Sydnee , dying or afterlife 0 09/22/2025 3:04 PM EST Braga, Sydnee Conflict between beliefs and cancer treatments 0 09/22/2025 3:04 PM EST Braga, Sydnee Relationship with the sacred 0 09/22/2025 3 :04 PM EST Braga, Sydnee Ritual or dietary needs 0 09/22/2025 3:04 P M EST Braga, Sydnee * Physical Concerns Question Answer Date of Assessment Author Changes in eating 0 09/22/2025 3:04 PM EST Braga, Sydnee Fatigue 0 09/22/2025 3:04 PM EST Braga , Sydnee Memory/Concentration 0 09/22/2025 3:[address] Braga, Sydnee Pain 1 09/22/2025 3:04 PM EST Braga , Sydnee Sexual health 0 09/22/2025 3:04 PM EST Berr y, Sydnee Sleep 0 09/22/2025 3:04 PM EST Braga , Sydnee Substance use 0 09/22/2025 3:04 PM EST Berr y, Sydnee Tobacco use 0 09/22/2025 3:04 PM EST Braga , Sydnee Loss or change of physical abilities 0 09/05 3:04 PM EST Braga, Sydnee * BSA (Calculated - sq m) Answer Date of Assessment Author 1.86 09/22/2025 3:09 PM EST Braga, Ab igayle * BMI (Calculated) Answer Date of Assessment Author 30.47 09/22/2025 3:09 PM EST Braga, Ab igayle * BP Location Answer Date of Assessment Author Left arm 09/22/2025 3:09 PM EST Braga, Ab igayle * Restart Vitals Timer Answer Date of Assessment Author Yes 09/22/2025 3:09 PM EST Braga, Ab igayle * Over the past 2 weeks, how often have you been bothered by any of the following problems? Question Answer Date of Assessment Author Little interest or pleasure in doing things Not at all 09/22/2025 3:03 PM EST Omi Sydnee Feeling down, depressed, or hopeless Not at all 09/22/2025 3:03 PM EST Omi Sydnee Patient Health Questionnaire -2 Score 0 09/22/2025 3:03 PM EST Omi Sydnee * Over the past 2 weeks, how [...] at all 09/22/2025 3: 03 PM EST Omi Sydnee Feeling bad about yourself - or that you are a failure or have let yourself or your family down Not at all 09/22/2025 3:03 PM EST Omi, A bigayle Trouble concentrating on thi ngs, such as reading the newspaper or watching television Not at all 09/22/2025 3:03 PM EST Omi Sydnee Moving or speaking so slowly that other people could have noticed. Or the opposite - being so fidgety or restless that you have been moving around a lot more than usual Not at all 09/22/2025 3:03 PM EST Omi, A bigayle Thoughts that you would be b ron off or hurting yourself in some way Not at all 09/22/2025 3:03 PM EST Omi Sydnee Patient Health Questionnaire -9 Score 0 09/22/2025 3:03 PM EST Omi Sydnee * How difficult have these problems made it for you to do your work, take care of things at home, or get along with other people? Answer Date of Assessment Author Not difficult at all 09/22/2025 3:03 PM EST Siobhan babin Sydnee * Weight in (lb) to have BMI = 25 Answer Date of Assessment Author 140.8 09/22/2025 3:09 PM EST Braga, Ab igayle * Patient Position Answer Date of Assessment Author Sitting 09/22/2025 3:09 PM EST Braga, Ab igayle documented as of this encounter Mental Status * BP Answer Entry Date Author 132/87 09/22/2025 3:09 PM EST Braga, Ab igayle * Temp Answer Entry Date Author 98.1 09/22/2025 3:09 PM EST Braga, Ab igayle * Pulse Answer Entry Date Author 52 09/22/2025 3:09 PM EST Braga, Ab igayle * Resp Answer Entry Date Author 18 09/22/2025 3:09 PM EST Braga, Ab igayle * SpO2 Answer Entry Date Author 95 09/22/2025 3:09 PM EST Braga, Ab igayle * Height Answer Entry Date Author 63 09/22/2025 3:09 PM EST Braga, Ab igayle * Weight Answer Entry Date Author 2751.34 09/22/2025 3:09 PM EST Braga, Ab igayle * BMI (Calculated) Answer Entry Date Author 30.5 09/22/2025 3:09 PM EST Braga, Ab igayle * Percent Excess Weight Loss Answer Entry Date Author 0 09/22/2025 3:09 PM EST Braga, Ab igayle * Total Weight Change Percent Answer Entry Date Author 2222 09/22/2025 3:09 PM EST Braga, Ab igayle * Weight Change Since Preop Answer Entry Date Author 77.98 09/22/2025 3:09 PM EST Braga, Ab igayle * Initial Excess Weight Answer Entry Date Author -52.16 09/22/2025 3:09 PM EST Braga, Ab igayle * IBW in lbs (Bariatric) Answer Entry Date Author 115 09/22/2025 3:09 PM EST Braga, Ab igayle * Weight Change Since Last Visit Answer Entry Date Author 77.98 09/22/2025 3:09 PM EST Braga, Ab igayle * IBW in kg (Bariatric) Answer Entry Date Author 52.16 09/22/2025 3:09 PM EST Braga, Ab igayle * Percent of IBW Answer Entry Date Author 5,274.81 09/22/2025 3:09 PM EST Braga, Ab igayle * EBW (kg) Answer Entry Date Author 2,749.86 09/22/2025 3:09 PM EST Braga, Ab igayle * EBW (lbs) Answer Entry Date Author 2,744.15 09/22/2025 3:09 PM EST Braga, Ab igayle * Distress Thermometer Score Question Answer Entry Date Author Appointment Type Initial consult 09/22/2025 3:04 PM ES T Braga, Sydnee Based on the past week, susan mckeon select the number that best describes how much distress you have had. 0 being none and 10 being the most extreme. 7 09/22/2025 3:04 PM EST Braga, Lin hudson * Practical Concerns Question Answer Entry Date Author Taking care of myself 0 09/22/2025 3:04 PM EST Braga, Sydnee Housing 0 09/22/2025 3:04 PM EST Braga , Sydnee Finances 0 09/22/2025 3:04 PM EST Braga , Sydnee Transportation 0 09/22/2025 3:04 PM EST Troy ry, Sydnee Work 0 09/22/2025 3:04 PM EST Braga , Sydnee Treatment Decisions 0 09/22/2025 3:04 PM ES T Braga, Sydnee Taking care of others 0 09/22/2025 3:04 PM EST Braga, Sydnee School No 09/22/2025 3:04 PM EST Braga , Sydnee Insurance 0 09/22/2025 3:04 PM EST Braga , Sydnee child care attendant school 0 09/22/2025 3:04 PM EST Braga , Sydnee Having enough food 0 09/22/2025 3:04 PM EST Braga, Sydnee Access to medicine 0 09/22/2025 3:04 PM EST Braga, Sydnee * Social Concerns Question Answer Entry Date Author Relationship with children 0 09/22/2025 3:0 4 PM EST Braga, Sydnee Relationship with spouse or partner 0 09/22 3:04 PM EST Braga, Sydnee Ability to have children 0 09/22/2025 3:04 PM EST Braga, Sydnee Relationship with family members 0 09/22/20 25 3:04 PM EST Braga, Sydnee Communication with health care team 0 09/22 3:04 PM EST Braga, Sydnee Relationship with friends or coworkers 0 3:04 PM EST Braga, Sydnee Prejudice or discrimination 0 09/22/2025 3: 04 PM EST Braga, Sydnee * Emotional Concerns Question Answer Entry Date Author Sadness or Depression 0 09/22/2025 3:04 PM EST Braga, Sydnee Fear 0 09/22/2025 3:04 PM EST Braga , Sydnee Worry or anxiety 0 09/22/2025 3:04 PM EST B erry, Sydnee Loss of interest or enjoyment 0 09/22/2025 3:04 PM EST Braga, Sydnee Grief or loss 0 09/22/2025 3:04 PM EST Berr y, Sydnee Loneliness 0 09/22/2025 3:04 PM EST Braga , Sydnee Anger 0 09/22/2025 3:04 PM EST Braga , Sydnee Changes in appearance 0 09/22/2025 3:04 PM EST Braga, Sydnee Feelings of worthlessness or being a burden 0 09/22/2025 3:04 PM EST Braga, Sydnee * Spiritual/Hindu Concerns Question Answer Entry Date Author Sense of meaning or purpose 0 09/22/2025 3: 04 PM EST Braga, Sydnee Change in tereza or beliefs 0 09/22/2025 3:0 4 PM EST Braga, Sydnee , dying or afterlife 0 09/22/2025 3:04 PM EST Braga, Sydnee Conflict between beliefs and cancer treatments 0 09/22/2025 3:04 PM EST Braga, Sydnee Relationship with the sacred 0 09/22/2025 3 :04 PM EST Braga, Sydnee Ritual or dietary needs 0 09/22/2025 3:04 P M EST Braga, Sydnee * Physical Concerns Question Answer Entry Date Author Changes in eating 0 09/22/2025 3:04 PM EST Braga, Sydnee Fatigue 0 09/22/2025 3:04 PM EST Braga , Sydnee Memory/Concentration 0 09/22/2025 3:[address] Braga, Sydnee Pain 1 09/22/2025 3:04 PM EST Braga , Sydnee Sexual health 0 09/22/2025 3:04 PM EST Berr y, Sydnee Sleep 0 09/22/2025 3:04 PM EST Braga , Sydnee Substance use 0 09/22/2025 3:04 PM EST Berr y, Sydnee Tobacco use 0 09/22/2025 3:04 PM EST Braga , Sydnee Loss or change of physical abilities 0 09/05 3:04 PM EST Braga, Sydnee * Weight Change 24 hrs Answer Entry Date Author -.1 09/22/2025 3:09 PM EST Braga, Ab igayle * Depression Screening Question Answer Entry Date Author Will the patient answer the depression risk questions? Yes 09/22/2025 3:03 PM EST Braga, Sydnee * BSA (Calculated - sq m) Answer Entry Date Author 1.86 09/22/2025 3:09 PM EST Braga, Ab igayle * BMI (Calculated) Answer Entry Date Author 30.47 09/22/2025 3:09 PM EST Braga, Ab igayle * BP Location Answer Entry Date Author Left arm 09/22/2025 3:09 PM EST Braga, Ab igayle * IBW/kg (Calculated) Male Answer Entry Date Author 56.9 09/22/2025 3:09 PM EST Braga, Ab igayle * IBW/kg (Calculated) Female Answer Entry Date Author 52.4 09/22/2025 3:09 PM EST Braga, Ab igayle * Restart Vitals Timer Answer Entry Date Author Yes 09/22/2025 3:09 PM EST Braga, Ab igayle * IBW/kg (Calculated) Answer Entry Date Author 52.4 09/22/2025 3:09 PM EST Braga, Ab igayle * Over the past 2 weeks, how often have you been bothered by any of the following problems? Question Answer Entry Date Author Little interest or pleasure in doing things Not at all 09/22/2025 3:03 PM EST Braga, Sydnee Feeling down, depressed, or hopeless Not at all 09/22/2025 3:03 PM EST Braga, Sydnee Patient Health Questionnaire -2 Score 0 09/22/2025 3:03 PM EST Braga, Sydnee * Over the past 2 weeks, how often have you been bothered by any of the following problems? Question Answer Entry Date Author Trouble falling or staying a sleep, or sleeping too much Not at all 09/22/2025 3:03 PM EST Braga, Sydnee Feeling tired or having zoila le energy Not at all 09/22/2025 3:03 PM EST Braga, Sydnee Poor appetite or overeating Not at all 09/22/2025 3: 03 PM EST Braga, Sydnee Feeling bad about yourself - or that you are a failure or have let yourself or your family down Not at all 09/22/2025 3:03 PM EST Braga, A bigayle Trouble concentrating on thi ngs, such as reading the newspaper or watching television Not at all 09/22/2025 3:03 PM EST Braga, Sydnee Moving or speaking so slowly that other people could have noticed. Or the opposite - being so fidgety or restless that you have been moving around a lot more than usual Not at all 09/22/2025 3:03 PM EST Braga, A bigayle Thoughts that you would be b ron off or hurting yourself in some way Not at all 09/22/2025 3:03 PM EST Braga, Sydnee Patient Health Questionnaire -9 Score 0 09/22/2025 3:03 PM EST Braga, Sydnee * [facility] Calculation Answer Entry Date Author 3 09/22/2025 3:03 PM EST Braga, Ab igayle * How difficult have these problems made it for you to do your work, take care of things at home, or get along with other people? Answer Entry Date Author Not difficult at all 09/22/2025 3:03 PM EST Berr y, Sydnee * Weight in (lb) to have BMI = 25 Answer Entry Date Author 140.8 09/22/2025 3:09 PM EST Braga, Ab igayle * BMI (Calculated) Answer Entry Date Author 30.5 09/22/2025 3:09 PM EST Braag, Ab igayle * Percent Excess Weight Loss Answer Entry Date Author 0 09/22/2025 3:09 PM EST Braga, Ab igayle * Weight Change Since Preop Answer Entry Date Author 78 09/22/2025 3:09 PM EST Braga, Ab igayle * Initial Excess Weight Answer Entry Date Author -52.16 09/22/2025 3:09 PM EST Braga, Ab igayle * IBW in kg (Bariatric) Answer Entry Date Author 52.16 09/22/2025 3:09 PM EST Braga, Ab igayle * IBW in lb (Bariatric) Answer Entry Date Author 115 09/22/2025 3:09 PM EST Braga, Ab igayle * Weight Change Since Last Visit Answer Entry Date Author -0.02 09/22/2025 3:09 PM EST Braga, Ab igayle * Percent of IBW Answer Entry Date Author 149.53 09/22/2025 3:09 PM EST Braga, Ab igayle * EBW (kg) Answer Entry Date Author 25.82 09/22/2025 3:09 PM EST Braga, Ab igayle * EBW (lb) Answer Entry Date Author 56.96 09/22/2025 3:09 PM EST Braga, Ab igayle * Difference in Weight Since Last Visit Answer Entry Date Author -0.02 09/22/2025 3:09 PM EST Braga, Ab igayle * Temp (in Celsius) for [place] IV Answer Entry Date Author 36.7 09/22/2025 3:09 PM EST Braga, Ab igayle * IBW/kg (Calculated) Answer Entry Date Author 52.4 09/22/2025 3:09 PM EST Braga, Ab igayle * Adult Low Range Vt 6mL/kg Answer Entry Date Author 314.4 09/22/2025 3:09 PM EST Braga, Ab igayle * Adult Moderate Range Vt 8mL/kg Answer Entry Date Author 419.2 09/22/2025 3:09 PM EST Braga, Ab igayle * Adult High Range Vt 10mL/kg Answer Entry Date Author 524 09/22/2025 3:09 PM EST Braga, Ab igayle * BP Cuff Size Answer Entry Date Author Adult 09/22/2025 3:09 PM EST Braga, Ab igayle * Vitals Timer Question Answer Entry Date Author Restart Vitals Timer Yes 09/22/2025 3:[address] Braga Sydnee * Patient Position Answer Entry Date Author Sitting 09/22/2025 3:09 PM EST Braga, Ab igayle documented in this encounter Miscellaneous Notes * Progress Notes - Lynda Espino PA - 09/22/2025 3:00 PM EST ONCOLOGY FOLLOW UP NOTE Patient Name: Josey Morales Date of : 1955 Encounter date: 09/22/2025 Chief complaint: Josey Morales is a 70 y.o. female who presents for scheduled follow-up and continuing oncology care. She has no breast cancer related complaints today. Current Treatment Plan: Anastrozole 1 mg daily Oncology History Overview Note Diagnosis: Stage IA (pT2, pN0(sn), cM0) right grade 2 ER 100%, IA 100%, HER2 negative IHC 1+ invasive ductal carcinoma originating in the upper outer quadrant. Procedure: 08/18/2020: Right mastectomy SNLB Treatment: 09/25/2020 - present: Anastrozole HPI: Josey Morales is a 69 y.o. female who originally presented in July 2020 with a palpableright breast mass. She noticed a knot on her right breast for many years, but approximately two weeks prior to presentation it became painful and enlarged. Bilateral diagnostic mammography w/ US in July 2020 showed a right 53 mm mass, 11 o'clock as well as a 2cm right axillary lymph node. US guided core needle biopsy of the mass on 08/02/20 showed grade 1 IDC ER/IA 100%, HER2 negative by IHC 1+. FNA of an abnormal appearing LN was negative. On 08/18/2020 she underwent a right mastectomy and sentinel lymph biopsy with final pathology revealing grade 2 invasive ductal carcinoma with micro papillary features measuring 45 mm in greatest dimension with 1-sentinel lymph; pT2 pN0 (sn). The margins of resection were clear. HER2 was repeated the final specimen and was negative by FISH at a ratio of 1.2. Oncotype was low at 5 and she was started on anastrozole in September 2020. Malignant neoplasm of right breast in female, estrogen receptor positive 08/18/2020 Cancer Staged Staging form: Breast, AJCC 8th Edition, Pathologic stage from 08/18/2020: Stage IA (pT2, pN0(sn), cM0, G2, ER+, IA+, HER2-, Oncotype DX score: 5) - Signed by Nuria Maolne MD on 08/24/2021 08/24/2021 Initial Diagnosis Malignant neoplasm of right breast in female, estrogen receptor positive (CMS/HCC) Surgery Interval History: History of Present Illness The patient is a 70-year-old female who presents for a left screening mammogram and follow-up. She reports no abnormalities in her breasts and conducts regular self- examinations during showers. She has not yet discontinued anastrozole, with her prescription expiring this month. She reports no issues with the medication. She will stop taking it after this script is complete, as she is at her 5 year aaron of adjuvant therapy. Two weeks ago, she experienced an episode of near syncope while standing at her kitchen counter around 9:30 AM, without any preceding intake of food or drink. This episode was characterized by suddendizziness, generalized numbness, and vertigo. She typically experiences vertigo only when lying down. Her primary care physician prescribed medication for vertigo, and she has not had any further episodes since then. She has been advised to consult with a er manager and neurologist but has not yet scheduled these appointments, and is planning to see them locally. Her blood work, chest CT, head CT, blood pressure, and blood sugar levels were all within normal limits. She reports no palpitations, falls, syncope, chest pain, nausea, vomiting, or abdominal pain. ROS: Review of Systems Constitutional: Negative. Negative for fatigue and fever. HENT: Negative. Respiratory: Negative. Negative for cough and shortness of breath. Cardiovascular: Negative. Negative for chest pain. Gastrointestinal: Negative. Negative for abdominal pain, diarrhea, nausea and vomiting. Endocrine: Negative for hot flashes. Musculoskeletal: Positive for arthralgias and gait problem (Due to stiffness). Neurological: Positive for gait problem (Due to stiffness). Psychiatric/Behavioral: Negative. As per HPI and above. All other systems reviewed and were negative. 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 Last menstrual period was 1976 after hysterectomy. Ovaries intact. She is with her 1st full-term at 17. She did not breast feed. She took oral contraceptives for 5 years. There is no history of infertility treatments. She took Premarin 15 years discontinuing approximately 10 years ago. Social History: She is and lives in [place]. She previously smoked 1 pack per day for 40 years but quit 12 years ago. She rarely drinks alcohol. She is retired from working at an animal alf. Family History: There is no family history of malignancy. Reviewed Past Medical History/Past Surgical History, Current Medications/Allergies, Family and Social History; unchanged from last clinic visit or updated as indicated. Allergies and Adverse Drug Reactions: Codeine Medications: Current Outpatient Medications Medication Instructions albuterol 108 (90 Base) MCG/ACT inhaler 2 puffs, Inhalation, 4 times daily PRN albuterol 1.25 mg, Nebulization, Every 4 hours PRN anastrozole (ARIMIDEX) 1 mg, Oral budesonide-formoterol (Symbicort) 160-4.5 MCG/ACT inhaler 2 puffs, 2 times daily celecoxib (CELEBREX) 200 mg, Daily Cranberry (AZO Cranberry Gummies) 250 MG chewable tablet 2 tab(s) orally once a day FLUoxetine (PROZAC) 20 mg, Oral, Daily fluticasone (Flonase) 50 MCG/ACT nasal spray 1 spray, Each Nostril, Daily, Shake gently. Before first use, prime pump. After use, clean tip and replace cap. Fluticasone Furoate-Vilanterol (Breo Ellipta) 100-25 MCG/ACT aerosol powder 1 Inhalation, Inhalation, Daily lisinopril 20 mg, Oral, Daily loratadine (CLARITIN) 10 mg, Oral, Daily meclizine (ANTIVERT) 25 mg, Oral, 3 times daily PRN omeprazole (PRILOSEC) 40 mg, Oral, Daily, Do not crush or chew. ondansetron ODT (ZOFRAN-ODT) 4 mg, Oral, Every 8 hours PRN Spacer/Aero-Holding Chambers (E-Z Spacer) inhaler use as directed with dulera tiotropium (SPIRIVA HANDIHALER) 18 mcg, Inhalation, Daily Performance Status: 2: Ambulatory and capable of all self-care but unable to work. Up & about >50% waking hours Visit Vitals BP 132/87 (BP Location: Left arm, Patient Position: Sitting, BP Cuff Size: Adult) Pulse 52 Temp 36.7 ??C (98.1 ??F) Resp 18 Ht 1.6 m (5' 3 ) Wt 78 kg (171 lb 15.3 oz) SpO2 95% BMI 30.46 kg/m?? OB Status Hysterectomy Smoking Status Former BSA 1.86 m?? Physical Examination: GENERAL: Obese female alert and in no acute distress. NECK: Supple, without cervical or clavicular LA RESPIRATORY: Lungs CTA bilaterally with symmetrical chest expansion HEART: Regular rate and rhythm without murmurs BREAST: S/p right mastectomy, right chest wall is without evidence of local tumor recurrence. No axillary adenopathy is appreciated. Left breast is without dominant mass, nipple discharge or skin changes. No abnormal axillary lymphadenopathy. ABDOMEN: Obese, nontender with positive bowel sounds EXT: No pedal edema is present bilaterally. SKIN: No rashes or subcutaneous nodules. No bruising. NEURO: Alert, oriented, conversational. There are no focal deficits. PSYCH: Judgment and insight are unimpaired. Mood and affect appropriate Radiology: Mammography Breast Screening Tomosynthesis Left Result date: 09/22/2025 FINDINGS: There are benign appearing calcifications present in the left breast. There is no evidence of suspicious masses, calcifications, or other abnormal findings. IMPRESSION: No mammographic evidence of malignancy. BI-RADS CATEGORY: Left: 2 - Benign Overall: 2 - Benign RECOMMENDATION: Routine Screening Mammogram in 1 Year. I visualized the recent imaging above and discussed the current radiology findings with the patientin detail and provided the report to the patient and answered all questions. Josey Morales is a 70 y.o. female with Cancer Staging Malignant neoplasm of right breast in female, estrogen receptor positive Staging form: Breast, AJCC 8th Edition - Pathologic stage from 08/18/2020: Stage IA (pT2, pN0(sn), cM0, G2, ER+, IA+, HER2-, Oncotype DX score: 5) - Signed by Nuria Maolne MD on 08/24/2021 Oncology Problem List: 1. Stage IIA (pT2 pN0 M0) right grade 2 ER 100%, IA 100% HER2 negative IDC with micropapillary features originating in the upper outer quadrant. S/p right mastectomy and sentinel lymph node biopsy 2. Hypertension 3. Encounter for monitoring antineoplastic hormonal therapy: Anastrozole 1 mg daily Assessment & Plan 1. Breast Cancer. The mammogram results were satisfactory, showing no indications of breast cancer. Benign calcifications were observed, which have remained stable. A subsequent mammogram has been scheduled for 1 yearfrom now. She continues in remission from right hormone receptor positive, HER2 negative breast cancer and will complete 5 years of adjuvant endocrine therapy this month when her script runs out, September 2025. 2. Vertigo. An episode of dizziness and numbness occurred two weeks ago, which included vertigo. Medication forvertigo was prescribed by the primary care provider, and no further episodes have occurred. Follow-up with a er manager and a neurologist is recommended. She is planning to see both locally closer to home. Regimen related toxicities Arthralgias Genetics Testing not indicated Bone Health DEXA scan from August 2024 shows slight worsening of bone density with T-scores still measuring inthe osteopenic range. She wanted to discuss the possibility of a bisphosphonate or bone modifying agent with her PCP. Unable to take calcium due to history of kidney stones. Continue weight-bearing exercises and vitamin- D. Since she is completing AI, advised to continue bone density monitoring with her PCP. Follow-up RTC 1 year with me and mammogram As always, she is encouraged to contact our office through [employer] or at the number provided for any additional questions or concerns. She voiced understanding of the plan, asked appropriate questions, and all questions were answered to her satisfaction today. Verbal consent was obtained to use ambient listening technology to assist in the documentation of the encounter: yes Lynda Espino PA-C Medical Oncology documented in this encounter Plan of Treatment Upcoming Encounters Date Type Department Care Team (Late st Contact Info) Description 10/12/2026 12:30 PM EST Appointment [facility] [place] [facility] [address] [facility] [address] [place] [address] 10/12/2026 1:30 PM EST Office Visit [facility] Breast Care [place] [address] [facility] [place] [address] Megan Bonds, SPA COORDINATOR [address] [facility] [address] [place] [address] Scheduled Orders Name Type Priority Associated Diagnoses Orde r Schedule Mammography Breast Screening Tomosynthesis Bilateral Imaging Routine Malignant neoplasm of right breast in female, estrogen receptor positive, unspecified site of breast Encounter for screening mammogram for malignant neoplasm of breast Expected: 09/22/2026 (Approximate), Expires: 03/26/2027 documented as of this encounter Visit Diagnoses Diagnosis Malignant neoplasm of right breast in female, estrogen receptor positive, unspecified site of breast- Primary Encounter for screening mammogram for malignant neoplasm of breast Encounter for monitoring aromatase inhibitor therapy documented in this encounter Additional Health Concerns Assessment Noted Time PHQ-9 Depression Total Score: 0 09/22/20 25 3:03 PM EST A fall risk assessment has been complete d for the patient 09/22/2025 3:08 PM EST A Body Mass Index follow-up plan has been documented for the patient 09/17/2025 3:15 PM EST documented as of this encounter Care Teams Precision Assembler Bench Relationship Specialty Start Date End Date Janna Arthur APRN [address] [place] [id number] PCP - General Family Medicine 08/10/23 Nuria Malone MD [address] [facility] [address] [address] Consulting Physician Hematology and Oncology 08/23/21 documented as of this encounter
--- NOTE | 2025-11-04 | CA_ITS ---
APPROVED REPORT Exam: Pharmacologic Technologist: Diann Sterling Ht: 5 ft 3 in Wt: 172 lbs BSA: 1.81 m2 HR: 72 bpm BP: 188/81 mmHg Indications: Syncope, Dizziness Stress Test Details Test: Lexiscan HR Resting HR: 72 bpm Max Heart Rate (APMHR): 148.643066 bpm Max HR Achieved: 102 bpm Target HR (85% APMHR): 125.388128 bpm % of APMHR: 68.92 Recovery HR: 72 bpm BP Resting BP: 188.0/81.0 mmHg Max BP: 184.0/80.0 mmHg Recovery BP: 155.0/76.0 mmHg ECG Resting ECG: Normal sinus rhythm Stress ECG Conclusion Symptoms: Dizziness. No chest pain. Arrhythmias/Ectopy: None ST-T Changes: < 1.[address] segment changes. Conclusion: Non-diagnostic Lexiscan stress test. Electronically signed by : Anne-Marie Stacy MD 11/06/2025 14:48:03
--- OUTSIDE RECORDS SUMMARY | 2025-11-04 12:19 | XMS_ITS | Encounter Summary ---
Author Organization [facility] Address [address] [place] [address] Care Team Providers Care Field Checker Name Role Phone Nuria Malone MD Unavailable [phone] Janna Arthur BACK FACER Primary Care Provider [phone] Reason for Visit * Reason Onset Date Comments HCN - Patient Message 09/15/2025 Encounter Details Date Type Department Care Team (Late st Contact Info) Description 09/15/2025 Telephone [facility] [address] [place] [address] Janna Arthur APRN [address] [place] [address] HCN - Patient Message Social History Tobacco Use Types Packs/Day Years Used Date Smoking Tobacco: Former Cigarettes 1 24 11 988 - 2007 Passive Smoke Exposure: Past [...] any time in the past 12 m [facility], were you homeless or living in a nursing home (including now)? No 09/11/2025 [facility] Utilities Answer Date Recorded In [...] for ER followup, records request faxed to [facility] * Telephone Encounter - Adela Yang - 09/15/2025 1:50 PM EST Clinical Concern/Question Reason for Call: Pt calling because she fainted over the weekend and was taken to the ED in [place] and pt was recommended to see a neurologist. Pt is requesting a referral and call back. Please advise. Best contact number: [phone] (home) Optimal time of day to reach caller: ANYTIME Additional comments/information from caller: None Note: Please do not reply to this message. Follow-up communication and further actions as a result of this message need to be communicated with the patient directly, if the patient is not active onMyChart. If the patient is active on MyChart, they will receive notification of the communication/outcome via [employer]. documented in this encounter Plan of Treatment Upcoming Encounters Date Type Department Care Team (Late st Contact Info) Description 10/12/2026 12:30 PM EST Appointment [facility] [address] [facility] [address] [place] [address] 10/12/2026 1:30 PM EST Office Visit [facility] Breast Care Center [address] [facility]nd [place] [address] Megan Bonds, BACK FACER [address] [facility] [address] [facility] [address] [place] [address] documented as of this encounter [...] documented as of this encounter Care Teams Field Checker Relationship Specialty Start Date End Date Janna Arthur, BACK FACER [address] [place] [phone] PCP - General Family Medicine 08/10/23 Nuria Malone MD [address] [facility] [address] [facility] [address] [place] [phone] Consulting Physician Hematology and Oncology 08/23/21 documented as of this encounter
--- OUTSIDE RECORDS SUMMARY | 2025-11-04 12:19 | XMS_ITS | Encounter Summary ---
Author Organization [facility] Address [address] [place] [address] Care Team Providers Care Millinery Teacher Name Role Phone Nuria Malone MD Unavailable [phone] Janna Arthur APRN Primary Care Provider [phone] Reason for Visit * Reason Comments Med Refill Encounter Details Date Type Department Care Team (Late st Contact Info) Description 09/03/2025 Refill [facility] [address] [place] [address] Janna Arthur APRN [address] [place] [address] Gastroesophageal reflux disease without esophagitis; [...] place to sleep or slept in a skilled nursing (including now)? No 08/04/2024 Utilities Answer Date [...] protocol. Appt requested to be scheduled by [facility]. Patient must schedule an appointment and be seen in clinic for additional refills. documented in this encounter Plan of Treatment Upcoming Encounters Date Type Department Care Team (Late st Contact Info) Description 10/12/2026 12:30 PM EST Appointment [facility] [address] [place] [address] 10/12/2026 1:30 PM EST Office Visit PAV Breast [facility] [address] [facility], 2nd [place] [address] Megan Bonds, CROSSBAR SWITCH ADJUSTER 800 [facility] [address] [place] [address] documented as of this encounter [...] documented as of this encounter Care Teams Millinery Teacher Relationship Specialty Start Date End Date Janna Arthur, CROSSBAR SWITCH ADJUSTER [address] [place] [phone] PCP - General Family Medicine 08/10/23 Nuria Malone MD [address] [facility] Nella Sauced[address] [phone] Consulting Physician Hematology and Oncology 08/23/21 documented as of this encounter
--- OUTSIDE RECORDS SUMMARY | 2025-11-04 12:19 | XMS_ITS | Encounter Summary ---
Author Organization [facility] Address [address] [place] [address] Care Team Providers Care Shingle Cutter Name Role Phone Nuria Malone MD Unavailable [phone] Janna Arthur APRN Primary Care Provider [phone] Encounter Details Date Type Department Care Team (Late st Contact Info) Description 09/07/2025 [facility] [address] [place] [address] Janna Arthur APRN [address] [place] [address] Anxiety and depression; Essential (primary) [...] place to sleep or slept in a retirement (including now)? No 08/04/2024 Utilities Answer Date [...] 12:30 PM EST Appointment [facility] [place] [address] Nella [address] [facility] [address] [place] [address] 10/12/2026 1:30 PM EST Office Visit [facility] Breast [facility] [address] [facility], 2nd [place] [address] Megan Bonds, HOSPICE/HOME HEALTH AIDE [address] [facility] Nella Griggs [address] [address] documented as of this encounter Visit Diagnoses [...] documented as of this encounter Care Teams Shingle Cutter Relationship Specialty Start Date End Date Janna Arthur, HOSPICE/HOME HEALTH AIDE [address] [place] [phone] PCP - General Family Medicine 08/10/23 Nuria Malone MD 800 Nena Haro [facility] [address] [place] [address] Consulting Physician Hematology and Oncology 08/23/21 documented as of this encounter
--- OUTSIDE RECORDS SUMMARY | 2025-11-04 12:20 | XMS_ITS | Encounter Summary ---
Author Organization [facility] Address [address] [place] [address] Care Team Providers Care Office Machine Repair Shop Supervisor Name Role Phone Nuria Malone MD Unavailable Janna Arthur APRN Primary Care Provider [phone] Reason for Visit * Reason Comments Med Refill Encounter Details Date Type Department Care Team (Late st Contact Info) Description 08/06/2025 [facility]ill [facility] [address] [facility], 2nd [place] [address] Nuria Malone MD 800 [facility] [address] [place] [address] Malignant neoplasm of right breast [...] place to sleep or slept in a long term (including now)? No 08/04/2024 Utilities Answer Date [...] Upcoming Encounters Date Type Department Care Team ([facility] st Contact Info) Description 10/12/2026 12:30 PM EST Appointment [facility] [place] [address] Nella [address]gs [facility] [address] [place] [address] 10/12/2026 1:30 PM EST Office Visit [facility] [address] [facility], 2nd [place] [address] Megan Bonds, RETAIL PHARMACIST 800 [facility] [address] [place] [address] documented as of this encounter [...] documented as of this encounter Care Teams Office Machine Repair Shop Supervisor Relationship Specialty Start Date End Date Janna Arthur, RETAIL PHARMACIST [address] [place] [phone] PCP - General Family Medicine 08/10/23 Nuria Malone MD 800 [facility] Nella Griggs [facility] [address] [place] [address] Consulting Physician Hematology and Oncology 08/23/21 documented as of this encounter
--- OUTSIDE RECORDS SUMMARY | 2025-11-04 12:20 | XMS_ITS | Clinical Summary ---
Author Organization [facility] Address [address] [place] [address] Care Team Providers Care Ditcher Name Role Phone Petra Oliva APRN Primary [...] Payer (Ef fective 2018-Present) Name:Josey Morales Member ID:[id number] Relation to Subscriber:Self Name:Josey Morales Subscriber ID:[id number] Payer ID:[id number] Group ID:Not on file Type:Not on file Address: [facility] [id number] [address] Care Teams Ditcher Relationship Specialty Start Date End Date Petra Oliva APRN [address] [place], [place] [id number] PCP - General Family Medicine 11/14/21
--- OUTSIDE RECORDS SUMMARY | 2025-11-04 12:20 | XMS_ITS | Clinical Summary ---
Author Organization [facility] Address [address] [place] [address] Care Team Providers Care Client Renewal Specialist Name Role Phone Nuria Malone MD Unavailable [phone] Janna Arthur APRN Primary Care Provider [phone] Allergies Active Allergy Reactions Criticality Noted Date Comments Codeine Shortness of breath, Other - please document in the comment field High 08/10/2020 Medications Spacer/Aero-Holdin hernan Malone (E-Z Spacer) inhaler use as directed with dulera 11/29/19 17 Active Cranberry (AZO Cranberry Gummies) 250 MG chewable tablet 2 tab(s) orally once a day Active celecoxib (CeleBREX) 200 MG capsule Take 1 capsule (200 mg) by mouth 1 (one) time each day. 01/31/20 22 Active albuterol 108 (90 Base) MCG/ACT inhalerIndications :Moderate persistent asthma without complication Inhale 2 puffs 4 (four) times a day if needed for wheezing. 18 g 11 08/08/20 24 Active Fluticasone Furoate-Vilanterol (Breo Ellipta) 100-25 MCG/ACT aerosol powder Inhale 1 Inhalation 1 (one) time each day. 60 each 3 08/08/20 24 Active tiotropium (Spiriva HandiHaler) 18 MCG inhalation capsuleIndications :Chronic obstructive pulmonary disease, unspecified COPD type (CMS/HCC) Place 1 capsule (18 mcg) into inhaler and inhale 1 (one) time each day. 30 capsule 11 08/08/20 24 Active lisinopril 20 MG tabletIndications: Essential (primary) hypertension Take 1 tablet by mouth daily. 90 tablet 3 09/11/20 25 Active albuterol 1.25 MG/3ML nebulizer solutionIndication s:Chronic obstructive pulmonary disease, unspecified COPD type (CMS/HCC) Take 3 mL by nebulization every 4 hours as needed for wheezing. 360 mL 11 09/11/20 25 Active FLUoxetine (PROzac) 20 MG capsuleIndications :Anxiety and depression Take 1 capsule by mouth daily. 90 capsule 09/11/20 25 Active omeprazole (PriLOSEC) [address] capsuleIndications :Gastroesophageal reflux disease without esophagitis Take 1 capsule by mouth daily. Do not crush or chew. 90 capsule 3 09/11/20 25 Active budesonide-formote rol (Symbicort) 160-4.5 MCG/ACT inhaler Inhale 2 puffs 2 times a day. Rinse mouth with water after use to reduce aftertaste and incidence of candidiasis. Do not swallow. Active meclizine (Antivert) 25 MG tablet Take 1 tablet by mouth 3 times a day as needed for dizziness. 30 tablet 2 09/17/20 25 Active ondansetron ODT (Zofran-ODT) 4 MG disintegrating tabletIndications: Nausea Dissolve 1 tablet on the tongue every 8 hours as needed for nausea or vomiting. 20 tablet 3 09/17/20 25 Active fluticasone (Flonase) 50 MCG/ACT nasal sprayIndications:E ustachian tube dysfunction, bilateral Administer 1 spray into each nostril daily. Shake gently. Before first use, prime pump. After use, clean tip and replace cap. 16 g 12 09/17/20 25 Active loratadine (Claritin) 10 MG tabletIndications: Eustachian tube dysfunction, bilateral Take 1 tablet by mouth daily. 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, estrogen receptor positive 08/24/2021 Cancer Staging:Pathologic stage from 08/18/2020:Stage IA(pT2, pN0(sn), cM0, G2, ER+, AL+, HER2-, Oncotype DX score: 5) - Signed by Nuria Malone MD on 08/24/2021 Chronic obstructive pulmonary disease 03/19/2018 Arthralgia of multiple sites, bilateral 05/09/20 Allergic rhinitis 11/29/2016 Obesity (BMI 30-39.9) 11/29/2016 Sleep disorder 11/29/2016 Hyperlipidemia 03/03/2015 Essential (primary) hypertension 01/30/2015 Depression 01/30/2015 Esophageal reflux 01/30/2015 Encounters Date Type Department Care Team Description 10/05/2025 Refill [facility] [place] [id number] [facility], [address] [place] [address] Nuria Malone MD Malignant neoplasm of right breast in female, estrogen receptor positive, unspecified site of breast 09/22/2025 3:00 PM EST Office Visit [place] [address] [facility], [address] [place] [address] Lynda Espino PA Malignant neoplasm of right breast in female, estrogen receptor positive, unspecified site of breast (Primary Dx); Encounter for screening mammogram for malignant neoplasm of breast; Encounter for monitoring aromatase inhibitor therapy 09/22/2025 1:23 PM EST - 09/22/2025 11:59 PM EST Hospital Encounter [facility] [address] [address] Screening mammogram, encounter for Discharge Disposition: Home or Self Care 09/22/2025 Travel 09/17/2025 2:40 PM EST Office Visit [address] [address] Janna Arthur APRN Syncope, unspecified syncope type (Primary Dx); Dizziness and giddiness; Nausea; Vertigo; Eustachian tube dysfunction, bilateral; Brain fog 09/17/2025 Travel 09/15/[address] [address] Janna Arthur APRN HCN - Patient Message 09/11/2025 8:20 AM EST Office Visit [address] [address] Janna Arthur APRN Routine general medical examination at health care facility (Primary Dx); Essential (primary) hypertension; Chronic obstructive pulmonary disease, unspecified COPD type (CMS/HCC); Anxiety and depression; Gastroesophageal reflux disease without esophagitis 09/11/2025 Travel 09/07/2025 Refill [facility] [address] [place] [address] Janna Arthur APRN Anxiety and depression; Essential (primary) hypertension; Gastroesophageal reflux disease without esophagitis 09/03/2025 Refill [facility] [address] [facility], 2nd [place] [address] Nuria Malone MD Malignant neoplasm of right breast in female, estrogen receptor positive, unspecified site of breast 09/03/[address] [address] Janna Arthur APRN Gastroesophageal reflux disease without esophagitis; Essential (primary) hypertension; Anxiety and depression 08/06/2025 Refill [facility] [address] [facility], 2nd [place] [address] Nuria Malone MD Malignant neoplasm of right breast in female, estrogen receptor positive, unspecified site of breast (Primary Dx) from Last 3 Months Immunizations Immunization Administration Dates Next Due Taya COVID-19 Vaccine (Blue Cap) 18+ 10/03/20 21,01/12/2021 [...] time in the past 12 m [facility], were you homeless or living in a senior care (including now)? No 09/11/2025 [facility] Utilities Answer Date Recorded In the [...] [facility] [address] [place] [address] 10/12/2026 1:30 PM EST Office Visit [facility] [address] [facility], 2nd [place] [address] Megan Bonds, MILL CONTROLLER 800 [facility] Nella Griggs [facility] [address] [place] [address] Health Maintenance Due Date Last Done Comments [facility]-Hepatitis C Screening 1953 [facility]-Pneumococcal Vaccine: 50+ Years (1 of 2 - PCV) 1972 [facility]-Zoster Vaccines (1 of 2) 1972 [facility]-DTaP,Tdap,and Td Vaccines (1 - Tdap) 01/07/1997 01/06/1997 CT Colonography 1998 Colonoscopy 1998 FIT-DNA 1998 FIT 1998 FOBT 1998 Sigmoidoscopy 1998 [facility]-Colorectal Cancer Screening 1998 [facility]-RSV Vaccine: 60+ Years or (1 - Risk 50-74 years 1-dose series) 2003 [id number] Vaccine (3 - season) 2025 10/03/2021, 01/12/2021 [...] 09/11/2025, 09/11/2025, Additional history exists HPV Vaccines (No Doses Required) Completed [facility]-HIB Vaccines Aged Out No longer e [...] core-IDC); right mastectomy, 08/2020; hysterectomy (Hysterectomy from [facility]); and hysterectomy (Hysterectomy from [facility]). Medical history includes breast cancer. COMPARISON STUDIES: Compared to: 08/23/2021 Mammography Breast Diagnostic Tomosynthesis Left at [facility] 08/28/2022 Mammography Breast Diagnostic Tomosynthesis Left at [facility] 08/29/2023 Mammography Breast Diagnostic Tomosynthesis Left at [facility] 09/01/2024 Mammography Breast Diagnostic Tomosynthesis Left at [facility] BREAST COMPOSITION: The breasts are [...] Fluoroscop y Narrative 09/07/2024 4:14 PM EST [facility] [address] [place] [address] DXA Bone Densitometry Report: [09/01/2024] BMD test performed using the Cearna DXA System (analysis version: 14.10) manufactured by [employer]. REFERRING PROVIDER: Dr. Megan Bonds APRN CLINICAL [...] of change in BMD). Megan Bonds APRN IMG DXA PROCEDURES Final Result * Hemoglobin A1c (05/15/2022 4:10 PM EDT) Hemoglobin A1c 5.4 <5.7 % 05/15/2022 6:09 PM EDT [facility] Blood Venous blood specimen / Unknown Venipuncture / Unknown 05/15/2022 4:10 PM EDT 05/15/2022 4:10 PM EDT Narrative [facility] - 05/15/2022 6:09 PM EDT HA1C Interpretive Data: Diagnosis of Diabetes: Diabetic > or = 6.5% Pre-diabetic 5.7 to 6.4% Non-diabetic < or = 5.6% Glycemic Targets for Type I and Type II Diabetics: Non- Adults <7.0% Adults <6.0% Children and Adolescents <7.5% Source: [place] [employer]. Standards of medical care in diabetes,2017. Diabetes Care.2017:40 (suppl 1):S1-S135. HbA1c assay performed by an ion-exchange chromatography method that is certified traceable to the DCCT. Laury Schaffer APRN LAB BLOOD ORDERABLES Nell l Result [facility] [address] [place] [address] from Last 3 Months or Most Recently Relevant to Health Maintenance [place] [address] ANTH Care Teams Client Renewal Specialist Relationship Specialty Start Date End Date Janna Arthur APRN [address] [place] [address] PCP - General Family Medicine 08/10/23 Nuria Malone MD [address] [place] [address] [address] Consulting Physician Hematology and Oncology 08/23/21
--- OUTSIDE RECORDS SUMMARY | 2025-11-04 12:20 | XMS_ITS | Encounter Summary ---
Author Organization [facility] Address [address] [facility] [place] [address] Care Team Providers Care Sizing Sprayer Name Role Phone Nuria Malone MD Unavailable [phone] Janna Arthur APRN Primary Care Provider [phone] Encounter Details Date Type Department Care Team [...] time in the past 12 m [facility], were you homeless or living in a intermediate (including now)? No 09/11/2025 [facility] Utilities Answer Date Recorded In the [...] as of this encounter Functional Status * Communicable Disease Screening Question Answer Date of Assessment Author Have you been in contact wit h someone who was sick? No / Unsure 09/11/2025 8:18 AM EST Adilene, Carmella L Do you have any of the following new or worsening symptoms? None of these 09/11/2025 8:18 AM EST Adilene Carmella L * Travel Screening Question Answer Date of Assessment Author Have you traveled intern[place] or domestically in the last month? No 09/11/2025 8:18 AM EST Sylwia paula, Carmella L documented as of this encounter Mental Status * Communicable Disease Screening Question Answer Entry Date Author Have you been in contact wit h someone who was sick? No / Unsure 09/11/2025 8:18 AM EST Adilene Carmella L Do you have any of the following new or worsening symptoms? None of these 09/11/2025 8:18 AM EST Adilene, Carmella L * Travel Screening Question Answer Entry Date Author Have you traveled intern[place] or domestically in the last month? No 09/11/2025 8:18 AM EST Sylwia paula Carmella L documented in this encounter Plan of Treatment Upcoming Encounters Date Type Department Care Team (Late st Contact Info) Description 10/12/2026 12:30 PM EST Appointment [facility] [place] [address] Nella Griggs [facility] 800 [place] [address] 10/12/2026 1:30 PM EST Office Visit [facility] [address] [facility], 2nd [place] [address] Megan Bonds, STUDENT AFFAIRS DEAN 800 [facility] Nella Griggs [address] [address] documented as of this encounter Visit Diagnoses [...] documented as of this encounter Care Teams Sizing Sprayer Relationship Specialty Start Date End Date Janna Arthur APRN [address] [place] [address] PCP - General Family Medicine 08/10/23 Nuria Malone MD 800 [facility] Nella Gip[address] [address] Consulting Physician Hematology and Oncology 08/23/21 documented as of this encounter
--- OUTSIDE RECORDS SUMMARY | 2025-11-04 12:20 | XMS_ITS | Encounter Summary ---
Author Organization [facility] Address [address] [facility] [place] [address] Care Team Providers Care Broadcast Producer Name Role Phone Nuria Malone MD Unavailable [phone] Janna Arthur APRN Primary Care Provider [phone] Encounter Details Date Type Department Care Team [...] any time in the past 12 m [facility], were you homeless or living in a long-term (including now)? No 09/11/2025 [facility] Utilities Answer Date Recorded In the [...] someone who was sick? No / Unsure 09/17/2025 2:37 PM EST Russell Nanceda R Do you have any of the following new or worsening symptoms? None of these 09/17/2025 2:37 PM EST Lee Ann Johnda R * Travel Screening Question Answer Date of Assessment Author Have you traveled [place] or domestically in the last month? No 09/17/2025 2:37 PM EST Riddl e Johnda R documented as of this encounter Mental Status * Communicable Disease Screening Question Answer Entry Date Author Have you been in contact wit h someone who was sick? No / Unsure 09/17/2025 2:37 PM EST Russell Nanceda R Do you have any of the following new or worsening symptoms? None of these 09/17/2025 2:37 PM EST Lee Ann Johnda R * Travel Screening Question Answer Entry Date Author Have you traveled intern[place] or domestically in the last month? No 09/17/2025 2:37 PM EST Riddl e Johnda R documented in this encounter Plan of Treatment Upcoming Encounters Date Type Department Care Team (Late st Contact Info) Description 10/12/2026 12:30 PM EST Appointment [facility] [address] Nella Griggs [facility] 800 [place] [address] 10/12/2026 1:30 PM EST Office Visit [facility] 740 [facility], 2nd [place] [address] Megan Bonds, LIBRARY MANAGER 800 [facility] Nella Griggs [address] [address] documented as of this encounter Visit Diagnoses Not on filedocumented in this encounter Additional Health Concerns Assessment Noted Time PHQ-9 Depression Total Score: 0 11/07/20 25 8:38 AM EST A fall risk assessment has been complete d for the patient 09/17/2025 2:47 PM EST A Body Mass Index follow-up plan has been documented for the patient 09/17/2025 3:15 PM EST documented as of this encounter Care Teams Broadcast Producer Relationship Specialty Start Date End Date Janna Arthur APRN [address] [place] [address] PCP - General Family Medicine 08/10/23 Nuria Malone MD 800 [facility] Nella Sauced[address] [phone] Consulting Physician Hematology and Oncology 08/23/21 documented as of this encounter
--- OUTSIDE RECORDS SUMMARY | 2025-11-04 12:21 | XMS_ITS | Encounter Summary ---
Author Organization [facility] Address [address] [place] [address] Care Team Providers Care Cupola Tapper Name Role Phone Nuria Malone MD Unavailable [phone] Janna Arthur APRN Primary Care Provider [phone] Reason for Visit * Reason Comments Med Refill Encounter Details Date Type Department Care Team (Late st Contact Info) Description 10/05/2025 Refill [facility] 740 [facility], 2nd [place] [address] Nuria Malone MD 800 [facility] [address] [place] [address] Malignant neoplasm of right breast in female, estrogen receptor positive, unspecified site of breast Social History Tobacco Use Types Packs/Day Years Used Date Smoking Tobacco: Former Cigarettes 20 988 - 2007 Passive Smoke Exposure: Past [...] a care home (including now)? No 09/11/2025 [facility] Utilities Answer Date Recorded In the past 12 months has [facility] [employer], gas, oil, or water company threatened to [...] 12:30 PM EST Appointment [facility] [place] [facility] [address] Nella Griggs [facility] 800 [place] [address] 10/12/2026 1:30 PM EST Office Visit [facility] 7[address] [facility], 2nd [place] [address] Megan Bonds, SKY CAP 800 [facility] Nella Griggs [address] [address] documented as of this encounter Visit Diagnoses [...] documented as of this encounter Care Teams Cupola Tapper Relationship Specialty Start Date End Date Janna Arthur, SKY CAP [address] [place] [phone] PCP - General Family Medicine 08/10/23 Nuria Malone MD 800 [facility] Nella [address] [address] Consulting Physician Hematology and Oncology 08/23/21 documented as of this encounter
--- OUTSIDE RECORDS SUMMARY | 2025-11-04 12:21 | XMS_ITS | Encounter Summary ---
Author Organization [facility] Address [address] [place] [address] Care Team Providers Care Chief Engineering Division Name Role Phone Nuria Malone MD Unavailable [phone] Janna Arthur APRN Primary Care Provider [phone] Encounter Details Date Type Department Care Team [...] in the past 12 m [facility], were you homeless or living in a correction (including now)? No 09/11/2025 [facility] Utilities Answer Date Recorded In the past [...] Assessment Author Have you been in contact with someone who was sick? No / Unsure 09/22/2025 1:23 PM EST Isi Manzanares L Do you have any of the following new or worsening symptoms? None of these 09/22/2025 1:23 PM EST Richard Manzanares L * Travel Screening Question Answer Date of Assessment Author Have you traveled [place] or domestically in the last month? No 09/22/2025 1:23 PM EST Pe Richard green L documented as of this encounter Mental Status * Communicable Disease Screening Question Answer Entry Date Author Have you been in contact with someone who was sick? No / Unsure 09/22/2025 1:23 PM EST Isi Manzanares L Do you have any of the following new or worsening symptoms? None of these 09/22/2025 1:23 PM EST Richard Manzanares L * Travel Screening Question Answer Entry Date Author Have you traveled [place] or domestically in the last month? No 09/22/2025 1:23 PM EST Richard Cannon documented in this encounter Plan of Treatment Upcoming Encounters Date Type Department Care Team (Late st Contact Info) Description 10/12/2026 12:30 PM EST Appointment [facility] [address] [place] [address] 10/12/2026 1:30 PM EST Office Visit [facility] [address] [facility] [place] [address] Megan Bonds, DANCE HISTORIAN [address] [facility] [address] [facility] [address] [place] [address] documented as of this encounter Visit Diagnoses [...] documented as of this encounter Care Teams Chief Engineering Division Relationship Specialty Start Date End Date Janna Arthur [place] [address] PCP - General Family Medicine 08/10/23 Nuria Malone MD [address] [facility] [address] [address] Consulting Physician Hematology and Oncology 08/23/21 documented as of this encounter
--- NOTE | 2025-11-04 12:30 | NM_ITS ---
APPROVED REPORT Exam: Nuclear Stress Test Indication: Abnormal EKG, Syncope, HTN, High choelsterol Patient Location: Outpatient Stress Tech: Diann Sterling [place] Tech:Paige Owusu, ROBINT, RT (R)(N) Ht: 5 ft 3 in Wt: 170 lbs Bra Size: A HR: 70 bpm BP: 188/81 mmHg BSA: 1.80 m2 TID: 1.18 BMI: 30.1 History: Abnormal EKG, Syncope, HTN, High choelsterol Procedure: Patient received 0.4 mg of intravenous Lexiscan, resting heart rate 70 bpm, resting blood pressure 188/81 mmHg, with Lexiscan maximum heart rate achieved was 102 bpm which is % of the maximum predicted heart rate and blood pressure was 184/80 mmHg. With Lexiscan, patient denied any complaint of chest pain. Cardiac Stress and Resting SPECT Images: Cardiac Stress and Resting SPECT images were obtained using technetium 99m Myoview 32.6 mCi stress and 10.30 mCi at rest. The patient could not lie on her abdomen. Therefore, prone stress imaging could not be performed. This may affect the diagnostic interpretation of the study findings. Resting and stress imaging in supine positions demonstrate no evidence of fixed or reversible perfusion defects. Gated imaging demonstrates normal global LV systolic function. LVEF is calculated at 57%. Conclusion: No evidence of fixed or reversible perfusion defects. Gated imaging demonstrates normal global LV systolic function. LVEF is calculated at 57%. Electronically signed by : Anne-Marie Stacy MD 11/06/2025 14:41:57
[2025-11-04] MEDS: ISOTOPE MYOVIEW (PER STUDY) 1 DOSE IV (13:52)
[2025-11-04] MEDS: SODIUM CHLORIDE 0.9% 10ML SYR (RAD ONLY) 10 ML IV ×2 (13:52)
== END 2025-11-04 23:59 | disposition home or self-care (01) ==
LOC: RAD 12:17
PROVIDERS: PCP Nurse Practitioner Family; Visit Provider Nurse Practitioner Family
DX: E78.00 Pure hypercholesterolemia, unspecified (principal); I10 Essential (primary) hypertension; R94.31 Abnormal electrocardiogram [ECG] [EKG]; R55 Syncope and collapse; R42 Dizziness and giddiness
CPT/HCPCS: 78452; 93017; 93018; A9502; J2785